=== PATIENT | female | born 1960 | race Caucasian/White ===

== ENCOUNTER → 2020-10-30 12:13 | Outpatient (CLI) | payer BC, SELFPAY ==
--- NOTE | 2020-10-30 12:50 | RAD_ITS ---
STUDY: X-RAY CHEST REASON FOR EXAM: Female, 60 years old. Left upper post crackles, fatigue TECHNIQUE: PA and lateral views of the chest. COMPARISON: None. FINDINGS: Patchy infiltrate in the right upper lobe with volume loss of the right upper lobe. There is enlargement of the right hilar region. A right hilar mass with postobstructive pneumonitis should be ruled out. Correlation with a CT scan is recommended. Hyperinflation. Normal size heart. Normal mediastinum and ailyn. There is prominence of the pulmonary hilar arteries without peripheral pulmonary vascular congestion, suggesting pulmonary hypertension. There is atherosclerotic calcification of the aortic arch with tortuosity. There are degenerative changes of the visualized thoracic spine. Normal visualized ribs, clavicles, and shoulders. There is no demonstrated abnormality of the visualized soft tissue structures of the upper abdomen. RAD/Chest PA and Lateral IMPRESSION: Right hilar soft tissue mass with infiltration in the right upper lobe and volume loss of the right upper lobe. Correlation with a CT scan is recommended to rule out a right hilar mass with postobstructive pneumonitis. Electronically Signed: Gabe Resendez MD at 9:55 EDT , Service support ,
[2020-10-30 15:15] LABS: Absolute Lymphocyte Count 1.55 X10^3/uL (0.83-4.51); Absolute Neutrophil Count 3.7 X10^3/uL (2.0-7.7); Basophil# 0.01 X10^3/uL; Basophil% 0.2 % (0-1); Eosinophil# 0.01 X10^3/uL; Eosinophils% 0.2 % (0-5); Hematocrit 44.8 % (37-47); Hemoglobin 15.2 g/dL (12.0-15.0); Lymphocyte # 1.55 X10^3/ul (0.83-4.51); Lymphocyte % 27.9 % (19-41); Mean Corp Hgb Conc 33.9 g/dL (32-36); Mean Corpuscular Hgb 28.9 pg (27.0-32.0); Mean Corpuscular Volume 85.2 fL (81-99); Mean Platelet Vol. 11.9 fl (6.2-12.0); Monocyte# 0.31 X10^3/uL; Monocyte% 5.6 % (0-10); NRBC Flagged by Analyzer 0 % (0-5); Neutrophil # 3.66 X10^3/uL (2.7-7.7); Neutrophil % 65.7 % (47-70); POSITIVE MORPHOLOGY YES; Platelet Count 171 K/mm3 (150-450); RBC Distribution Width CV 12.3 % (11.6-14.6); RBC Distribution Width SD 38.3 fl (35.1-43.9); Red Blood Count 5.26 M/mm3 (4.2-5.4); White Blood Count 5.6 K/mm3 (4.4-11.0)
[2020-10-30 15:18] LABS: Differential Indicated SCAN CRITERIA MET
[2020-10-30 15:36] LABS: AST(SGOT) 34 U/L (15-37); Alanine Aminotransfer ALT/SGPT 39 U/L (13-56); Albumin, Serum 3.7 g/dL (3.2-5.0); Alkaline Phosphatase 88 U/L (45-117); Anion Gap 12 (5-15); BUN 19 mg/dL (7-18); BUN/Creat Ratio 29.1 RATIO (10-20); Calcium,Total 9.6 mg/dL (8.5-10.1); Chloride 107 mmol/L (98-107); Creatinine, Serum 0.65 mg/dL (0.55-1.02); EST Glomerular Filtration Rate 98 mL/min (>60); Est Glom Filt Rate - Afr Amer 118 mL/min (>60); Globulin 3.8 g/dL (2.2-4.2); Glucose 99 mg/dL (74-106); Potassium 3.6 mmol/L (3.5-5.1); Protein, Total 7.5 g/dL (6.4-8.2); Sodium Level 140 mmol/L (136-145)
[2020-10-30 15:58] LABS: Atypical Lymphocyte RARE %; Platelet Estimate ADEQUATE (ADEQ); Red Cell Morphology NORM C+C NORMAL (NORM C&C)
== END ==
PROVIDERS: PCP Internal Medicine; Referring Provider Internal Medicine; Visit Provider Internal Medicine
DX: R06.89 Other abnormalities of breathing (principal)
CPT/HCPCS: 36415; 71046; 80053; 85025

== ENCOUNTER → 2020-11-01 12:30 | Outpatient (CLI) | payer BC, SELFPAY ==
--- NOTE | 2020-11-01 12:35 | CT_ITS ---
STUDY: CT CHEST WITH CONTRAST REASON FOR EXAM: Female, 60 years old. Right hilar fullness and infiltrate in the right upper lobe. RADIATION DOSAGE (If Supplied By Facility): CTDIvol = ( 12.51 ) mGy, DLP = ( 454.83 ) mGycm TECHNIQUE: Transaxial imaging was performed following intravenous administration of IV 100mL Isovue-370. Multiplanar coronal and sagittal images were reformatted. Individualized dose optimization techniques were used for this CT. COMPARISON: Comparison is made with prior chest radiograph dated 10/30/2020. FINDINGS: Consolidation is seen in the posterior segment of the right upper lobe. Patchy infiltration is seen in the lateral aspect of the superior segment of the left lower lobe. Focal infiltrate is seen in the lateral aspect of the left upper lobe. Patchy infiltrate is seen in the posterior aspect of the right lower lobe. Minimal increased markings in the left lung. There is no demonstrated pleural abnormality. Normal heart and pericardium. Normal mediastinum. There is enlargement of the right hilar lymph node measuring 2.2 cm x 1.6 cm. Normal enhanced pulmonary arteries. Normal aorta arch and descending thoracic aorta. There are multi-level degenerative changes of the thoracic spine. There is no demonstrated abnormality of the visualized upper abdomen. CT/Chest WITH Contrast IMPRESSION: Multifocal infiltrates as described worse in the right upper lobe. There is enlargement of the right hilar lymph node. An infectious process should be ruled out. Pneumonitis secondary to Covid should be ruled out as well. Electronically Signed: Gabe Resendez MD at 13:07 EDT , Service support ,
== END ==
PROVIDERS: PCP Internal Medicine; Referring Provider Internal Medicine; Visit Provider Internal Medicine
DX: R06.89 Other abnormalities of breathing (principal); R93.89 Abnormal findings on diagnostic imaging of other specified body structures
CPT/HCPCS: 71260; 87635; Q9967; U0005; U0003

== ENCOUNTER → 2021-02-26 12:01 | Outpatient (CLI) | payer BC, SELFPAY ==
[2021-02-26 15:46] LABS: Free T3 2.5 pg/mL (2.18-3.98); T4 Free Direct 1.12 ng/dL (0.76-1.46); Thyroid Stim Hormone (TSH) 0.39 uIU/mL (0.358-3.74)
== END ==
PROVIDERS: PCP Internal Medicine; Visit Provider Internal Medicine
DX: F41.9 Anxiety disorder, unspecified (principal)
CPT/HCPCS: 36415; 84439; 84443; 84481

== ENCOUNTER → 2021-11-19 | Outpatient (CLI) | payer BC, SELFPAY ==
[2021-11-19 10:26] LABS: Absolute Neutrophil Count 2.9 X10^3/uL (2.0-7.7); Basophil# 0.01 X10^3/uL; Basophil% 0.2 % (0-1); Eosinophil# 0.04 X10^3/uL; Eosinophils% 0.8 % (0-5); Hematocrit 40.6 % (37-47); Hemoglobin 13.6 g/dL (12.0-15.0); Lymphocyte % 36.8 % (19-41); Mean Corp Hgb Conc 33.5 g/dL (32-36); Mean Corpuscular Hgb 29.1 pg (27.0-32.0); Mean Corpuscular Volume 86.9 fL (81-99); Mean Platelet Vol. 10.7 fl (6.2-12.0); Monocyte# 0.34 X10^3/uL; Monocyte% 6.6 % (0-10); NRBC Flagged by Analyzer 0 % (0-5); Neutrophil # 2.86 X10^3/uL (2.7-7.7); Neutrophil % 55.4 % (47-70); Platelet Count 212 K/mm3 (150-450); RBC Distribution Width CV 12.8 % (11.6-14.6); RBC Distribution Width SD 40.6 fl (35.1-43.9); Red Blood Count 4.67 M/mm3 (4.2-5.4); White Blood Count 5.2 K/mm3 (4.4-11.0)
[2021-11-19 11:10] LABS: ALB/GLOB Ratio 1.2 RATIO (0.9-2.4); AST(SGOT) 11 U/L (15-37); Alanine Aminotransfer ALT/SGPT 24 U/L (13-56); Albumin, Serum 3.6 g/dL (3.2-5.0); Alkaline Phosphatase 70 U/L (45-117); Anion Gap 7 (5-15); BUN 15 mg/dL (7-18); Calcium,Total 8.7 mg/dL (8.5-10.1); Chloride 109 mmol/L (98-107); Cholesterol 206 mg/dL (200); Creatinine, Serum 0.75 mg/dL (0.55-1.02); EST Glomerular Filtration Rate 83 mL/min (>60); Est Glom Filt Rate - Afr Amer 101 mL/min (>60); Globulin 3.1 g/dL (2.2-4.2); Glucose 101 mg/dL (74-106); High Density Lipoprotein 58 mg/dL; Potassium 3.8 mmol/L (3.5-5.1); Protein, Total 6.7 g/dL (6.4-8.2); Sodium Level 142 mmol/L (136-145); Thyroid Stim Hormone (TSH) 1.07 uIU/mL (0.358-3.74); Triglycerides 119 mg/dL; Very Low Density Lipoprotein 24 mg/dL (5-40)
[2021-11-19 11:33] LABS: Vitamin D,25 Hydroxy 23.7 ng/mL
== END | disposition home or self-care (01) ==
PROVIDERS: PCP Internal Medicine; Referring Provider Internal Medicine; Visit Provider Internal Medicine
DX: F41.9 Anxiety disorder, unspecified (principal); E78.00 Pure hypercholesterolemia, unspecified
CPT/HCPCS: 36415; 80053; 80061; 82306; 84443; 85025

== ENCOUNTER → 2022-03-13 | Outpatient (CLI) | payer BC, SELFPAY ==
--- NOTE | 2022-03-13 07:21 | MRI_ITS ---
STUDY: MRI LEFT KNEE REASON FOR EXAM: Female, 62 years old. OSTEOARTHRITIS, ANTERIOR PAIN UNDER PATELLA TECHNIQUE: Standardized fat and water weighted pulse sequences were obtained in all 3 orthogonal planes. COMPARISON: None. FINDINGS: There is medial meniscus tear of the posterior horn with delamination, series 7 image 10/30. There is diffuse, greater than 50% thickness articular cartilage loss of the medial femorotibial compartment. There is mild osteoarthritic spur formation of the medial knee compartment. There is reactive marrow edema and cysts of the medial tibial plateau. Normal medial collateral ligamentous complex (MCL). Normal distal semimembranosus, gracilis and semitendinosus tendons. There is lateral meniscus tear of the posterior horn, series 7 image 12/30. There is diffuse, less than 50% thickness articular cartilage loss of the lateral femorotibial compartment. There is mild osteoarthritic spur formation of the lateral knee compartment. Normal proximal tibiofibular articulation. Normal lateral collateral (fibular) ligament. Normal popliteus tendon. Normal biceps femoris tendon. Normal anterior cruciate ligament (ACL). Normal posterior cruciate ligament (PCL). There is arthrosis of the patellofemoral articulation. There is diffuse, less than 50% thickness articular cartilage loss of the patellofemoral compartment. Normal medial and lateral patellar retinaculum. Normal quadriceps tendon. Normal patellar tendon. Normal Hoffa''s fat pad. There is a small volume joint effusion. The soft tissues are unremarkable. The otherwise visualized osseous structures are unremarkable. MRI/Lower Ext Joint Only (Routine) IMPRESSION: Medial meniscus tear. Lateral meniscus tear. Degenerative change. Stress fracture/injury of the medial tibial plateau. Joint effusion. Electronically Signed: Harley Garcia MD at 9:52 EST ,
== END | disposition home or self-care (01) ==
PROVIDERS: PCP Internal Medicine; Referring Provider Orthopaedic Surgery; Visit Provider Orthopaedic Surgery
DX: M17.12 Unilateral primary osteoarthritis, left knee (principal)
CPT/HCPCS: 73721

== ENCOUNTER → 2022-04-24 | Outpatient (CLI) | payer BC, SELFPAY ==
--- NOTE | 2022-04-24 12:27 | EKG12_ITS ---
Test Reason : PREOP Blood Pressure : / mmHG Vent. Rate : 064 BPM Atrial Rate : 064 BPM P-R Int : 136 ms QRS Dur : 080 ms QT Int : 380 ms P-R-T Axes : 049 069 047 degrees QTc Int : 392 ms Normal sinus rhythm Normal ECG Confirmed by FERNANDA MASTERSON, ZANE ([id number]), editor magazine SHAI HUERTA ([id number]) on 04/27/2022 11:38:02 AM Referred By: SHANIQUA WOODS Confirmed By:ZANE MICHAEL MD
[2022-04-24 13:19] LABS: Hematocrit 42.7 % (37-47); Hemoglobin 14.2 g/dL (12.0-15.0); Mean Corp Hgb Conc 33.3 g/dL (32-36); Mean Corpuscular Hgb 29.9 pg (27.0-32.0); Mean Corpuscular Volume 89.9 fL (81-99); Mean Platelet Vol. 10.6 fl (6.2-12.0); Platelet Count 219 K/mm3 (150-450); RBC Distribution Width CV 12.7 % (11.6-14.6); RBC Distribution Width SD 42.4 fl (35.1-43.9); Red Blood Count 4.75 M/mm3 (4.2-5.4); White Blood Count 7.6 K/mm3 (4.4-11.0)
[2022-04-24 13:41] LABS: Anion Gap 6 (5-15); BUN 22 mg/dL (7-18); BUN/Creat Ratio 28.7 RATIO (10-20); Calcium,Total 9.1 mg/dL (8.5-10.1); Chloride 109 mmol/L (98-107); Creatinine, Serum 0.77 mg/dL (0.55-1.02); EST Glomerular Filtration Rate 81 mL/min (>60); Est Glom Filt Rate - Afr Amer 98 mL/min (>60); Glucose 89 mg/dL (74-106); Potassium 3.8 mmol/L (3.5-5.1); Sodium Level 141 mmol/L (136-145)
== END | disposition home or self-care (01) ==
PROVIDERS: PCP Internal Medicine; Visit Provider Physician Assistant
DX: Z01.818 Encounter for other preprocedural examination (principal)
CPT/HCPCS: 36415; 80048; 85027; 93005

== ENCOUNTER 2024-09-24 05:07 | Emergency (ER) | payer OTHER, SELFPAY ==
[2024-09-24 05:09] VITALS: BP 132/78; PULSE 82; RESP 18; TEMP 37.2; O2SAT 97; BMI 25.4
--- NOTE | 2024-09-24 06:03 | ED.VIS.FEGU ---
HPI HPI - Female History of Present Illness Chief Complaint: Complaint Narrative Narrative: Chief complaint and HPI: Dysuria and suprapubic pressure. 64-year-old female presents for evaluation of dysuria and suprapubic pressure. Onset this morning. Patient states 3 weeks ago she was bit by a possible spider on the back of her left leg. She developed pain and swelling in the leg. She was seen by urgent care. Placed on antibiotics and had a DVT study that was performed which was negative. Patient states she thinks her symptoms today are related to a UTI however she does not know if it is related to the spider bite which is why she presents. She denies any fever, chills, shortness of breath, chest pain, nausea, vomiting. Review of systems: See HPI Medications: As listed on the chart Allergies: As listed on the chart PFSH: Per chart Vital signs: As listed on the chart. Reviewed. Physical exam: Gen: A&O x3, NAD Head: Normocephalic, atraumatic Eyes: No sclera icterus, conjunctiva clear ENT: Moist mucous membranes Neck: Trachea midline, No JVD CV: RRR, no murmurs, no peripheral edema Resp: Lungs CTA BL, no w/r/c GI: Abd soft, non-distended, non-tender, no r/r/g : No CVA tenderness Musc: Full ROM, no deformity, femoral/DP/PT pulses +2 bilaterally, left lower extremity is without swelling or rash, no spider bite or rash present, compartments soft Skin: Warm, dry Neuro: Alert, oriented, grossly intact, sensation intact Psych: Cooperative, appropriate mood and affect PFS PFS Medical History Elevated low density lipoprotein (LDL) cholesterol level Home Medications ?Medication ?Instructions ?Recorded ?Last Taken ?Type acyclovir 5 % topical ointment 1 applic topical .twice daily 5 02/18/23 Unknown Rx days #15 grams escitalopram oxalate 10 mg tablet 10 mg PO DAILY #90 tabs 03/24/24 Unknown Rx Allergy/AdvReac Type Severity Reaction Status Date / Time No Known Allergies Allergy Verified 09/24/24 05:09 Family History Father Cancer Hypertension Mother Hypertension Social History Smoking Status: Never smoker alcohol intake: current alcohol intake frequency: holidays/special occasions only substance use type: does not use what type of physical activity do you participate in: walking and aerobics frequency: daily EXAM Physical Exam Const Vital Signs: 09/24/24 05:09 09/24/24 07:08 Temperature 98.9 F 98.4 F Temperature Source Oral Oral Pulse Rate 82 65 Respiratory Rate 18 15 Blood Pressure 132/78 H 135/79 H Blood Pressure Mean 96 97 Pulse Ox 97 97 Oxygen Delivery Method Room Air Room Air MDM MDM MDM Narrative Medical decision making narrative: 64-year-old female presents for evaluation of dysuria and suprapubic pressure. Onset this morning. Patient states 3 weeks ago she was bit by a possible spider on the back of her left leg. Was seen in urgent care. Had a duplex ultrasound that was negative for DVT but there was concern for infection so she was placed on antibiotics. Symptoms have since resolved. Patient was concerned that her symptoms today may be related to the spider bite. Given that patient's previous spider bite symptoms have improved/resolved, I do not think the 2 are related. Her vitals are stable. Physical exam is unremarkable. Concern is for UTI. UA ordered. UA negative for UTI however positive for blood. Patient's pain may be secondary to urolithiasis. Will add on basic labs and CT abdomen pelvis without contrast. She confirmed understanding of the plan. CBC unremarkable. BMP without RUSS. CT abdomen pelvis without any acute intra-abdominal process. At this point in time, no clear etiology for patient's symptoms. She needs to follow-up with her primary care physician. She is updated all the results and confirmed understand the plan. Patient stable to discharge home. Return precautions explained. Impression: 1. Abdominal pain 2. Dysuria Lab Data Labs: Laboratory Results - last 24 hr 09/24/24 09/24/24 05:29 06:09 WBC 8.2 RBC 4.79 Hgb 14.1 Hct 42.3 MCV 88.3 MCH 29.4 MCHC 33.3 RDW Std Deviation 41.3 RDW Coeff of Sanjiv 12.8 Plt Count 300 MPV 10.3 Immature Gran % (Auto) 0.100 Neut % (Auto) 73.7 H Lymph % (Auto) 19.7 [place] % (Auto) 5.6 Eos % (Auto) 0.7 Baso % (Auto) 0.2 Absolute Neuts (auto) 6.0 Absolute Lymphs (auto) 1.62 Nucleated RBC % 0 Urine Color Yellow Urine Clarity Clear Urine pH 6.5 Ur Specific [place] 1.015 Urine Protein 30 H Urine Glucose (UA) Normal Urine Ketones Negative Urine Occult Blood 10 H Urine Nitrite Negative Urine Bilirubin Negative Urine Urobilinogen 1 H Ur Leukocyte Esterase Negative Urine RBC 0 SEEN Urine WBC 0 SEEN Ur Squamous Epith Cells 0-5 SEEN Urine Bacteria 0 SEEN Urine Mucus 0 SEEN Radiography Diagnostic Testing: Clinical Impression(s) from Imaging Studies Abdomen/Pelvis CT 09/24/24 06:37 IMPRESSION: No acute abdominopelvic finding. Reading Location: [facility] Discharge Plan Triage Chief Complaint: Complaint ED Provider: Alphonse Lowry Dx/Rx/DC Orders Prescriptions: No Action acyclovir 5 % ointment 1 applic topical .twice daily 5 Days Qty: 15 2RF escitalopram oxalate 10 mg tablet 10 mg PO DAILY Qty: 90 3RF Primary Care Provider: Celeste Nunez Referrals: Celeste Nunez MD [Primary Care Provider] - Print Language: [place]i
--- OUTSIDE RECORDS SUMMARY | 2024-09-24 06:06 | XMS RPT_ITS | CCD ---
Author Organization [facility] Care Team Providers Care Soil Science Technical Officer Name Role Phone Dr. Sb Ann Primary Care Provider Dr. Sb Ann Attending Provider [phone] Dr. Sb Ann Referring Provider [phone] Unavailable Primary Care Provider UnavailDr. Sb Kincaid Primary Care Provider Dr. Inderjit Jean Attending Provider 1([facility]) ROYA Bradshaw Referring Provider [phone] Sb Ann Referring Unavailable Sb Ann Primary Care Unavailable Sb Ann Attending Unavailable Sb Ann Primary Care Unavailable Justin Bradshaw Attending Unavailable Dr. Emily Dale Attending Unavailable Dr. Emily Dale Referring Unavailable Sb Ann Primary Care Unavailable Sb Ann Primary Care Unavailable Sb Ann Attending Unavailable Sb Ann Referring Unavailable Sb Ann Primary Care Unavailable Inderjit Jean Attending Unavailable Justin Bradshaw Referring Unavailable Sb Ann MD Primary Care Provider [phone] Sb Ann MD Primary Care Provider [phone] SB ANN Primary Care Unavailable EMILY LIMA Attending Unavailable Medications Current Medications Medication Drug Class(es) Dates Sig (Normalized) Sig (Original) acyclovir 0.05 mg/mg topical ointment (4 sources) Herpesvirus Nucleoside Analog DNA Polymerase Inhibitor, Herpes Simplex Virus Nucleoside Analog DNA Polymerase Inhibitor, Herpes Zoster Virus Nucleoside Analog DNA Polymerase Inhibitor Start: 11-26-2021 Acyclovir Active 1 APPLIC TOPICAL .twice daily 15 November 25, 2021 11:00pm Start: 11-26-2021 End: 11-26-2021 Acyclovir Discontinued 1 MARINA LIC TOPICAL .twice daily 07 17November 25, 2021 11:00pm November 26, 2021 11:52am escitalopram 10 mg oral tablet (16 sources) Serotonin Reuptake Inhibitor Start: 02-26-2021 End: 02-27-2022 take 1 tablet by mouth once daily escitalopram oxalate (LEXAPRO) 10 mg tablet Take 10 mg by mouth once daily. 02/27/2022 Active Comment on above: Take 10 mg by mouth once daily. methylPREDNISolone (2 sources) Corticosteroid Start: 09-19-2024 End: 09-25-2024 methylPREDNISolone (MEDROL, RODDY,) 4 mg Dose-Pack Indications: Rash , Pain of left lower extremity Take as instructed per package. 21 tablet 09/19/2024 09/25/2024 Active ofloxacin 3 mg/ml otic solution (1 source) Quinolone Antimicrobial Start: 10-26-2022 End: 11-02-2022 ofloxacin (FLOXIN) 0.3 % otic solution Use 10 Drops in the right ear once daily for 7 days. 4 mL 0 10/26/2022 11/02/2022 Active Comment on above: Use 10 Drops in the right ear once daily for 7 days. sulfamethoxazole 800 mg / trimethoprim 160 mg oral tablet (2 sources) Dihydrofolate Reductase Inhibitor Antibacterial, Sulfonamide Antimicrobial Start: 09-19-2024 End: 09-26-2024 take 1 tablet by mouth twice daily sulfamethoxazole-trim ethoprim (BACTRIM DS) 800-160 mg per tablet Indications: Cellulitis of skin Take 1 tablet by mouth two times a day for 7 days. 14 tablet 09/19/2024 09/26/2024 Active Completed/Discontinued Medications Medication Drug Class(es) Dates Sig (Normalized) Sig (Original) cephalexin 500 mg oral capsule (2 sources) Cephalosporin Antibacterial Start: 10-30-2020 End: 11-25-2020 Cephalexin Discontinued EACH PO October 29, 2020 11:00pm November 25, 2020 7:10am levoFLOXacin 500 mg oral tablet (2 sources) Quinolone Antimicrobial Start: 11-01-2020 End: 11-25-2020 take 500 mg by mouth once daily Levofloxacin Discontinued 500 MG PO DAILY 7 October 31, 2020 11:00pm November 25, 2020 7:10am phenazopyridine hydrochloride 200 mg oral tablet (2 sources) Start: 10-30-2020 End: 11-25-2020 Phenazopyridine Discontinued EACH PO October 29, 2020 11:00pm November 25, 2020 7:11am Problems Problem Classification Problem Date Documented Date Episodic/Chronic Anxiety disorders (5 sources) Anxiety; Translations: [Anxiety disorder, unspecified] Onset: 11-24-2021 02-26-2021 Chronic Disorders of lipid metabolism (2 sources) Raised low density lipoprotein cholesterol; Translations: [Pure hypercholesterolemia , unspecified] 07-10-2020 Chronic Osteoarthritis (1 source) Unilateral primary osteoarthritis, left knee; Translations: [Unilateral primary osteoarthritis, left knee] Onset: 06-10-2022 Chronic Other connective tissue disease (4 sources) Pain in left lower limb; Translations: [Pain in left leg] 09-19-2024 Episodic Other connective tissue disease (1 source) Pain in left leg; Translations: [Pain of left lower extremity] Onset: 09-19-2024 Episodic Other ear and sense organ disorders (1 source) Acute otitis externa of left ear; Translations: [Unspecified acute noninfective otitis externa, left ear] 10-26-2022 Episodic Other lower respiratory disease (2 sources) Abnormal breath sounds; Translations: [Other abnormalities of breathing] 10-30-2020 Episodic Other screening for suspected conditions (not mental disorders or infectious disease) (2 sources) Imaging of thorax abnormal; Translations: [Abnormal findings on diagnostic imaging of other specified body structures] 10-31-2020 Chronic Other screening for suspected conditions (not mental disorders or infectious disease) (3 sources) Patient encounter status; Translations: [Encounter for screening mammogram for malignant neoplasm of breast] Episodic Other skin disorders (6 sources) Eruption; Translations: [Rash and other nonspecific skin eruption] 11-26-2021 Episodic Other skin disorders (3 sources) Rash and other nonspecific skin eruption; Translations: [Rash and other nonspecific skin eruption] Onset: 01-09-2022 Episodic Skin and subcutaneous tissue infections (2 sources) Cellulitis of skin; Translations: [Cellulitis, unspecified] Onset: 09-19-2024 09-19-2024 Episodic Results Test Name Value Interpretation Reference Range Facility [facility] Lower [facility] 09-21-2024 IMPRESSION: Negative study for proximal DVT in the left lower extremity. Negative study for calf DVT in the left lower extremity. Negative study for superficial thrombophlebitis in the imaged segments of the left lower extremity. Enrolled Agent: JOHANNA Transcribe Date/Time: Sep 21 2024 8:13A Dictated by : TOMMIE CLARK MD This examination was interpreted and the report reviewed and electronically signed by: TOMMIE CLARK MD on Sep 21 2024 8:14AM EST [facility] * * *Final Report* * * DATE OF EXAM: Sep 21 2024 7:46AM LDU 1006 - US DVT LOWER LT / PROCEDURE REASON: multiple diagnoses * * * * Physician Interpretation * * * * EXAMINATION: LEFT LOWER EXTREMITY DEEP VENOUS ULTRASOUND WITH DOPPLER IMAGING CLINICAL HISTORY: Swelling and rash; evaluate for DVT TECHNIQUE: Grayscale with compression maneuvers, color Doppler and spectral Doppler imaging of the left proximal deep veins was performed. Grayscale with compression maneuvers of the peroneal and posterior tibial veins was performed. The left great and small saphenous veins were evaluated at their insertion to the deep system. The contralateral common femoral vein was imaged for comparison. Images were obtained and stored in a permanent archive. MQ: USLEL_1 COMPARISON: None RESULT: LEFT LOWER EXTREMITY PROXIMAL DEEP VEINS Distal External Iliac, Common Femoral and proximal Profunda Veins: Compression: Normal Doppler: Normal, spontaneous respirophasic flow. Normal response to augmentation. Femoral vein: Compression: Normal Doppler: Normal, spontaneous flow. Normal response to augmentation. Popliteal vein: Compression: Normal Doppler: Normal, spontaneous flow. Normal response to augmentation. CALF DEEP VEINS Peroneal veins: Normal compression. Posterior tibial veins: Normal compression. Gastrocnemius and Soleal veins: Not imaged. SUPERFICIAL VEINS Great saphenous: Patent and compressible at insertion into common femoral vein; not otherwise assessed. Small Saphenous: Patent and compressible in the proximal calf, not otherwise assessed. RIGHT LOWER EXTREMITY (FOR COMPARISON) Common Femoral Vein: Compression: Normal Doppler: Normal, spontaneous respirophasic flow. Normal response to augmentation. [employer] [facility] Provider, Danitza eKn - 09/21/2024 * * *Final Report* * * DATE OF EXAM: Sep 21 2024 7:46AM LDU 1006 - US DVT LOWER LT / PROCEDURE REASON: multiple diagnoses * * * * Physician Interpretation * * * * EXAMINATION: LEFT LOWER EXTREMITY DEEP VENOUS ULTRASOUND WITH DOPPLER IMAGING CLINICAL HISTORY: Swelling and rash; evaluate for DVT TECHNIQUE: Grayscale with compression maneuvers, color Doppler and spectral Doppler imaging of the left proximal deep veins was performed. Grayscale with compression maneuvers of the peroneal and posterior tibial veins was performed. The left great and small saphenous veins were evaluated at their insertion to the deep system. The contralateral common femoral vein was imaged for comparison. Images were obtained and stored in a permanent archive. MQ: USLEL_1 COMPARISON: None RESULT: LEFT LOWER EXTREMITY PROXIMAL DEEP VEINS Distal External Iliac, Common Femoral and proximal Profunda Veins: Compression: Normal Doppler: Normal, spontaneous respirophasic flow. Normal response to augmentation. Femoral vein: Compression: Normal Doppler: Normal, spontaneous flow. Normal response to augmentation. Popliteal vein: Compression: Normal Doppler: Normal, spontaneous flow. Normal response to augmentation. CALF DEEP VEINS Peroneal veins: Normal compression. Posterior tibial veins: Normal compression. Gastrocnemius and Soleal veins: Not imaged. SUPERFICIAL VEINS Great saphenous: Patent and compressible at insertion into common femoral vein; not otherwise assessed. Small Saphenous: Patent and compressible in the proximal calf, not otherwise assessed. RIGHT LOWER EXTREMITY (FOR COMPARISON) Common Femoral Vein: Compression: Normal Doppler: Normal, spontaneous respirophasic flow. Normal response to augmentation. IMPRESSION IMPRESSION: Negative study for proximal DVT in the left lower extremity. Negative study for calf DVT in the left lower extremity. Negative study for superficial thrombophlebitis in the imaged segments of the left lower extremity. Enrolled Agent: PSCB Transcribe Date/Time: Sep 21 2024 8:13A Dictated by : TOMMIE CLARK MD This examination was interpreted and the report reviewed and electronically signed by: TOMMIE CLARK MD on Sep 21 2024 8:14AM EST [facility] Radiology Study observation (narrative) [facility] US Lower extremity vein - le ftOrdered By: Ccf Provider on 09-21-2024 [facility] CNOVon 09-19-2024 CNOV Office Visit ([facility]) JENNY CHAVARRIA ([id number]) 1960 F Date Time Provider Department 09/19/24 5:30 PM EMILY LIMA During your visit today, we recorded the following information about you: Temperature Pulse Respiration Blood pressure 98.5 degrees 74/minute 16/minute 122/72 Weight 86 kg Emily Lima MD 09/19/2024 5:49 PM Signed [facility] Subjective Jenny Chavarria is a 64 year old female. Patient presents with: Rash: bug bite on left leg x 2.5-3 weeks Pt is here with 3 week hx of left leg pain and rash and itching at times no injury started with feeling of a bug bite while driving the car then noticed a red rash that has spread no warmth but feels pain in the area and has spread to whole leg no calf swelling no hx of Dvt no dyspnea no recent travle no recent surgeries Rash Pertinent negatives include no fatigue or fever. Review of Systems Constitutional: Negative for chills, fatigue and fever. Musculoskeletal: Positive for arthralgias, joint swelling and myalgias. Skin: Positive for rash. Neurological: Negative for weakness and numbness. Objective BP 122/72 Pulse 74 Temp 36.9 ?C (98.5 ?F) Resp 16 Wt 86 kg (189 lb 9.5 oz) LMP 11/29/2009 SpO2 99% BMI 27.80 kg/m? Physical Exam Vitals and nursing note reviewed. Constitutional: Appearance: Normal appearance. She is not ill-appearing. Musculoskeletal: General: No deformity. Normal range of motion. Right lower leg: No edema. Left lower leg: No edema. Skin: Findings: Erythema and rash present. No bruising. Comments: Extensive patchy red area around left upper thigh and posterior area no warmth no masses or abscess palpable no calf tenderness no cords palpated Neurological: Mental Status: She is alert. Sensory: No sensory deficit. Motor: No weakness. Coordination: Coordination normal. Deep Tendon Reflexes: Reflexes normal. Psychiatric: Mood and Affect: Mood normal. Behavior: Behavior normal. {ASSESSMENT/PLAN: 1. Cellulitis of skin - ICD9: 682.9, ICD10: L03.90 (primary diagnosis) - SULFAMETHOXAZOLE 800 MG-TRIMETHOPRIM 160 MG TABLET 2. Rash - ICD9: 782.1, ICD10: R21 - US DVT LOWER LEFT - METHYLPREDNISOLONE 4 MG TABLETS IN A DOSE PACK 3. Pain of left lower extremity - ICD9: 729.5, ICD10: M79.605 Will treat for possible infection but will check an us for visualization of area of concern - US DVT LOWER LEFT - METHYLPREDNISOLONE 4 MG TABLETS IN A DOSE PACK Emily Lima MD History and Record Review Clinical information obtained from an independent historian. History obtained from or confirmed by: spouse. Systemic symptoms present included: Arthralgias and myalgias Differential Diagnoses - cellulitis is more likely for the following reason(s): suggested by HANDP - DVT is less likely for the following reason(s): await US tomorrow, HANDP not suggestive Disposition The patient was discharged. Procedures Emily Lima MD 09/19/2024 5:42 PM Signed START THE MEDS AND GET THE ULTRASOUND TOMORROW WE WILL NOTIFY OF RESULTS IF ANY WORSE GO TO THE ED Allergies As of Date: 09/19/2024 (No Known Allergies) Date Reviewed: 09/19/2024 Reviewed by: Juliet Mcdonald MA - Fully Assessed Reason for Visit: Rash [1087] Cmt: bug bite on left leg x 2.5-3 weeks Primary Visit Diagnosis:Cellulitis of skin [L03.90] Other Visit Diagnoses:Rash [R21] Pain of left lower extremity [M79.605] Order(s):US DVT LOWER LEFT [5896332] Order #: [id number] FUTURE sulfamethoxazole-trime thoprim (BACTRIM DS) 800-160 mg per tabletTake 1 tablet by mouth two times a day for 7 days.Disp: 14 tabletRfl: 0 methylPREDNISolone (MEDROL, RODDY,) 4 mg Dose-PackTake as instructed per package.Disp: 21 tabletRfl: 0 Prescriptions as of 09/19/2024 - sulfamethoxazole-trime thoprim (BACTRIM DS) 800-160 mg per tablet Take 1 tablet by mouth two times a day for 7 days. - methylPREDNISolone (MEDROL, RODDY,) 4 mg Dose-Pack Take as instructed per package. - escitalopram oxalate (LEXAPRO) 10 mg tablet Take 10 mg by mouth once daily. Meds Comments as of 08/14/2008: No current medications/reviewed August 14, 2008/Glendy Castellano Lpn Problem List As Of Date: 09/19/2024 (None) Other instructions from your clinician: START THE MEDS AND GET THE ULTRASOUND TOMORROW WE WILL NOTIFY OF RESULTS IF ANY WORSE GO TO THE ED Prescriptions ordered this encounter Disp Refills Start End SULFAMETHOXAZOLE 800 MG-TRIMETHOPRIM* 14 t* 0 09/19/2024 09/26/2024 Route: PO Sig: Take 1 tablet by mouth two times a day for 7 days. METHYLPREDNISOLONE 4 MG TABLETS IN A* 21 t* 0 09/19/2024 09/25/2024 Sig: Take as instructed per package. Level of Service: OFFICE/OUTPATIENT NEW MODERATE MDM 45 MINUTES [03035] Encounter Status:Closed by EMILY LIMA on 09/19/24 Normal [facility] MG Breast Screeningon 2023 [facility] 12 Lead EKGon 04-24-2022 12 Lead EKG [facility] Cardiovascular Services [address] [place] [id number] 12 Lead EKG 04/24/22 1233 MR#: [id number] Acct: [id number] Name: JENNY CHAVARRIA Rep #: [id number] : 1960 62 From: Inderjit Jean MD Attending Dr: Justin Kelyl PA-C Status: REG CL I Ordering Dr: Justin Kelly PA-C Date: 04/24/22 Location: [facility] Sex: F C Admitted: Test Reason : PREOP Blood Pressure : / mmHG Vent. Rate : 064 BPM Atrial Rate : 064 BPM P-R Int : 136 ms QRS Dur : 080 ms QT Int : 380 ms P-R-T Axes : 049 069 047 degrees QTc Int : 392 ms Normal sinus rhythm Normal ECG Confirmed by INDERJIT JEAN MD ([id number]), continuity editor SHAI HUERTA ([id number]) on 04/27/2022 11:38:02 AM Referred By: SHANIQUA KELLY Confirmed By:INDERJIT JEAN MD 04/27/22 1138 Date Inderjit Jean MD CC: ROYA Kelly; Dr. Sb Ann MD Signed Normal [facility] Basic Metabolic Profile (BMP )on 04-24-2022 BUN/CRE 28.7 RATIO High 10-20 [facility] Comment on above: Performed By: #### L 100.0500, L500.2500 #### [facility] [address] [place], [address] CA,Total 9.1 mg/dL Normal 8.5-10.1 [facility] Comment on above: Performed By: #### L 100.0500, L500.2500 #### [facility] [address] [place], [address] Chloride [Moles/Vol] 109 mmol/L High 98-107 [facility] Comment on above: Performed By: #### L 100.0500, L500.2500 #### [facility] [address] [place], [address] CO2 [Moles/Vol] 26.0 mmol/L Normal 21.0-32.0 [facility] Comment on above: Performed By: #### L 100.0500, L500.2500 #### [facility] [address] [place], [address] Creatinine [Mass/Vol] 0.77 mg/dL Normal 0.55-1.02 [facility] Comment on above: Result Comment: The validity of the calculated GFR GFRAA in patients over 70 years has not been determined. Clinical correlation is essential. Performed By: #### L 100.0500, L500.2500 #### [facility] [address] [place], [address] EST GFR - AA 98 mL/min Normal >60 [facility] Comment on above: Result Comment: Afri can Venezuelan GFR Calc Performed By: #### L 100.0500, L500.2500 #### [facility] [address] [place], [address] GAP 6 Normal 5-15 [facility] Comment on above: Performed By: #### L 100.0500, L500.2500 #### [facility] [address] [place], [address] GFR/1.73 sq M.predicted among non-blacks MDRD (S/P/Bld) [Vol rate/Area] 81 mL/min/{1.73_m2} Normal >60 [facility] Comment on above: Result Comment: Non- GFR Calc Performed By: #### L 100.0500, L500.2500 #### [facility] [address] [place], [address] Glucose [Mass/Vol] 89 mg/dL Normal 74-106 [facility] Comment on above: Performed By: #### L 100.0500, L500.2500 #### [facility] [address] [place], [address] Potassium [Moles/Vol] 3.8 mmol/L Normal 3.5-5.1 [facility] Comment on above: Performed By: #### L 100.0500, L500.2500 #### [facility] [address] [place], [address] Sodium [Moles/Vol] 141 mmol/L Normal 136-145 [facility] Comment on above: Performed By: #### L 100.0500, L500.2500 #### [facility] [address] [place], [address] Urea nitrogen [Mass/Vol] 22 mg/dL High 7-18 [facility] Comment on above: Performed By: #### L 100.0500, L500.2500 #### [facility] [address] [place], [address] Basophil percentageOrdered B y: Justin Kelly on 04-24-2022 Chloride [Moles/Vol] 109 mmol/L 98-107 [facility] Glucose [Mass/Vol] 89 mg/dL 74-106 [facility] Potassium [Moles/Vol] 3.8 mmol/L 3.5-5.1 [facility] Sodium [Moles/Vol] 141 mmol/L 136-145 [facility] WBC (Bld) [#/Vol] 7.6 10*3/uL 4.4-11.0 [facility] Blood erythrocytes count (nu mber/volume)Ordered By: Justin Kelly on 04-24-2022 RBC (Bld) [#/Vol] 4.75 10*6/uL 4.2-5.4 [facility] Blood hemoglobin measurement (mass/volume)Ordered By: Justin Kelly on 04-24-2022 Hemoglobin (Bld) [Mass/Vol] 14.2 g/dL 12.0-15.0 [facility] Blood platelet mean volumeOr dered By: Justin Kelly on 04-24-2022 Platelet mean volume (Bld) [Entitic vol] 10.6 fL 6.2-12.0 [facility] CBC-Complete Blood Cnt No Di ffon 04-24-2022 Erythrocyte distribution width (RBC) [Ratio] 12.7 % Normal 11.6-14.6 [facility] Comment on above: Performed By: #### L 100.0500, L500.2500 #### [facility] [address] [place], [address] Hematocrit (Bld) [Volume fraction] 42.7 % Normal 37-47 [facility] Comment on above: Performed By: #### L 100.0500, L500.2500 #### [facility] [address] [place], [address] Hemoglobin (Bld) [Mass/Vol] 14.2 g/dL Normal 12.0-15.0 [facility] Comment on above: Performed By: #### L 100.0500, L500.2500 #### [facility] [address] [place], [address] MCH (RBC) [Entitic mass] 29.9 pg Normal 27.0-32.0 [facility] Comment on above: Performed By: #### L 100.0500, L500.2500 #### [facility] [address] [place], [address] MCHC (RBC) [Mass/Vol] 33.3 g/dL Normal 32-36 [facility] Comment on above: Performed By: #### L 100.0500, L500.2500 #### [facility] [address] [place], [address] MCV (RBC) [Entitic vol] 89.9 fL Normal 81-99 [facility] Comment on above: Performed By: #### L 100.0500, L500.2500 #### [facility] [address] [place], [address] Platelet mean volume (Bld) [Entitic vol] 10.6 fL Normal 6.2-12.0 [facility] Comment on above: Performed By: #### L 100.0500, L500.2500 #### [facility] [address] [place], [address] Platelets (Bld) [#/Vol] 219 10*3/uL Normal 150-450 [facility] Comment on above: Performed By: #### L 100.0500, L500.2500 #### [facility] [address] [place], [address] RBC (Bld) [#/Vol] 4.75 10*6/uL Normal 4.2-5.4 [facility] Comment on above: Performed By: #### L 100.0500, L500.2500 #### [facility] [address] [place], [address] RDW SD 42.4 fl Normal 35.1-43.9 [facility] Comment on above: Performed By: #### L 100.0500, L500.2500 #### [facility] [address] [place], [address] WBC (Bld) [#/Vol] 7.6 10*3/uL Normal 4.4-11.0 [facility] Comment on above: Performed By: #### L 100.0500, L500.2500 #### [facility] [address] [place], [address] Determination of erythrocyte mean corpuscular volume (MCV)Ordered By: Justin Kelly on 04-24-2022 MCV (RBC) [Entitic vol] 89.9 fL 81-99 [facility] Hematocrit Auto (Bld) [Volum e fraction]Ordered By: Justin Kelly on 04-24-2022 Hematocrit (Bld) [Volume fraction] 42.7 % 37-47 [facility] - Chemistry and C hemistry - challengeOrdered By: Justin Kelly on 04-24-2022 CO2 [Moles/Vol] 26.0 mmol/L 21.0-32.0 [facility] Urea nitrogen/Creatinine [Mass ratio] 28.7 mg/mg 10-20 [facility] - Hematology and Cell countsOrdered By: Justin Kelly on 04-24-2022 Erythrocyte distribution width (RBC) [Entitic vol] 42.4 fL 35.1-43.9 [facility] Erythrocyte distribution width (RBC) [Ratio] 12.7 % 11.6-14.6 [facility] MCH (RBC) [Entitic mass] 29.9 pg 27.0-32.0 [facility] MCHC Auto (RBC) [Mass/Vol]Or dered By: Justin Kelly on 04-24-2022 MCHC (RBC) [Mass/Vol] 33.3 g/dL 32-36 [facility] No Panel InformationOrdered By: Justin Kelly on 04-24-2022 Estimated GFR (MDRD) Amer 98 mL/min >60 [facility] Comment on above: GFR Calc Estimated GFR (MDRD) Non-Af Amer 81 mL/min >60 [facility] Comment on above: Non- GFR Calc Platelets bldOrdered By: Bartolome Kelly on 04-24-2022 Platelets (Bld) [#/Vol] 219 10*3/uL 150-450 [facility] Serum or plasma calcium michael urement (mass/volume)Ordered By: Justin Kelly on 04-24-2022 Calcium [Mass/Vol] 9.1 mg/dL 8.5-10.1 [facility] Serum or plasma creatinine m easurement (mass/volume)Ordered By: Justin Kelly on 04-24-2022 Creatinine [Mass/Vol] 0.77 mg/dL 0.55-1.02 [facility] Comment on above: The validity of the calculated GFR & GFRAA in patients over 70 years has not been determined. Clinical correlation is essential. Serum or plasma urea nitroge n measurement (mass/volume)Ordered By: Justin Kelly on 04-24-2022 Urea nitrogen [Mass/Vol] 22 mg/dL 7-18 [facility] Thin prep Papanicolaou smear with manual screeningOrdered By: Justin Kelly on 04-24-2022 Thin prep Papanicolaou smear with manual screening 6 5-15 [facility] AFSHAN SCREENINGon 04-08-2022 [facility] Lower Ext Joint Only (Routin e)on 03-13-2022 Lower Ext Joint Only (Routine) [facility] [facility] Imaging Services [address] [place] [address] Lower Ext Joint Only (Routine) MR#: [id number] Acct: [id number] Name: JENNY CHAVARRIA Rep #: [id number] : 1960 F 62 From: Harley Garcia MD PCP: Dr. Sb Ann MD Status: REG CLI Study: Lower Ext Joint Only (Routine) Date of Exam: Exam# [id number] Ordering Dr: Emily Dale DO STUDY: MRI LEFT KNEE REASON FOR EXAM: Female, 62 years old. OSTEOARTHRITIS, ANTERIOR PAIN UNDER PATELLA TECHNIQUE: Standardized fat and water weighted pulse sequences were obtained in all 3 orthogonal planes. COMPARISON: None. FINDINGS: There is medial meniscus tear of the posterior horn with delamination, series 7 image 01/11. There is diffuse, greater than 50% thickness articular cartilage loss of the medial femorotibial compartment. There is mild osteoarthritic spur formation of the medial knee compartment. There is reactive marrow edema and cysts of the medial tibial plateau. Normal medial collateral ligamentous complex (MCL). Normal distal semimembranosus, gracilis and semitendinosus tendons. There is lateral meniscus tear of the posterior horn, series 7 image 12/. There is diffuse, less than 50% thickness articular cartilage loss of the lateral femorotibial compartment. There is mild osteoarthritic spur formation of the lateral knee compartment. Normal proximal tibiofibular articulation. Normal lateral collateral (fibular) ligament. Normal popliteus tendon. Normal biceps femoris tendon. Normal anterior cruciate ligament (ACL). Normal posterior cruciate ligament (PCL). There is arthrosis of the patellofemoral articulation. There is diffuse, less than 50% thickness articular cartilage loss of the patellofemoral compartment. Normal medial and lateral patellar retinaculum. Normal quadriceps tendon. Normal patellar tendon. Normal Hoffa''s fat pad. There is a small volume joint effusion. The soft tissues are unremarkable. The otherwise visualized osseous structures are unremarkable. MRI/Lower Ext Joint Only (Routine) IMPRESSION: Medial meniscus tear. Lateral meniscus tear. Degenerative change. Stress fracture/injury of the medial tibial plateau. Joint effusion. Electronically Signed: Harley Garcia MD at 9:52 EST , CC: Dr. Sb Ann MD; Dr. Emily Dale DO Enrolled Agent: Signed [facility] Internal Medicine [address] [place] [address] OFFICE VISIT Date of Service: 11/26/21 MR#: [id number] Acct: [id number] Name: JENNY CHAVARRIA Rep #: [id number] : 1960 Provider: Dr. Sb vargas MD Age/Sex: 61/F Location: [facility] Status: Signed Intake Vital Signs 11/26/21 08:04 Weight: 182 lb 6 oz BP 127/77 H Blood Pressure Location Lt brachial Position Sitting Respiration 16 Pulse 70 Pulse Source Monitor Temp 97.4 F L Temp Source Temporal Pulse Oximetry (%) 93 Oxygen Delivery Method room air Intake Visit Reasons: 6-8M F/U Chief Complaint: no acute concerns Child Care Attendant Required: No Is patient in pain?: No Allergies No Known Allergies Allergy (Verified 11/26/21 08:05) Medications escitalopram oxalate 10 mg tablet 10 mg PO DAILY #90 tabs 08/19/21 [Rx Confirmed 11/26/21] acyclovir 5 % topical cream 1 applic topical .twice daily 5 days #5 grams 11/26/21 [Rx Confirmed 11/26/21] PFSH Medical History Elevated low density lipoprotein (LDL) cholesterol level Family History Father Cancer Hypertension Mother Hypertension Social History Smoking Status: Never smoker alcohol intake: current alcohol intake frequency: holidays/special occasions only substance use type: does not use what type of physical activity do you participate in: walking and aerobics frequency: daily HPI HPI Chief Complaint: no acute concerns Details: JENNY CHAVARRIA, is a 61 F who presents to the office today for checkup. Overall patient is doing well. She makes note that she has a outbreak of shingles. She gets this recurrently, has a rash with some tingling, itching burning sensation, that will last about a week, on the left upper arm. She will not get it frequently but it is usually under conditions of stress. These are not the typical shingles type of rash, small little bumps well-developed good or burning, itching in nature. Otherwise has been doing well. She had her labs done and those were reviewed in detail with her in regards to the lipids all were excellent. Likewise blood counts, kidney and liver functions etc. All lab reviewed in detail. Generally speaking otherwise she has been doing quite well. She continues to work. Remaining physically active. Overall eats a very good high-quality diet as we have discussed previously. Review of systems per chart. No fever, chills, nausea or vomiting. No abdominal pains. No change in bowel movements. No chest pain, shortness of breath, wheeze, cough, congestion. No focal neurologic concerns. Physical exam. Vital signs on chart. EOMI. PERRLA. Sclera are clear. TMs are unremarkable with normal light reflexes. Canals are unremarkable. Posterior pharynx is unremarkable. Good dentit ion. No cervical or supraclavicular lymph nodes enlarged or tender. No clear thyromegaly. No thyroid nodules readily palpable. Lungs are without wheeze, rhonchi, rales. No E/A changes are heard. Heart is regular. Not tachycardic. No clear murmur, rub, or gallop is identified. The abdomen is soft. Bowel sounds are present. Nontender nondistended abdomen. No clear palpable masses in the abdomen. No significant leg edema. Cranial nerve examination 2 through 12 are grossly unremarkable nonlateralizing. Deep tendon reflexes are 2/4 and symmetric at the bicep, tricep, Achilles, patella. No ankle clonus. Couple of areas of rash, left lateral upper arm. This is of a recurrent nature for her, typically with stress situations. Not the typical usual shingles outbreak but very likely viral if not shingles in nature as we have discussed. ROS Const Constitutional: No body ache, chills, excessive sweating, fatigue, fever(s), frequent falls, headache(s), snoring, weakness, weight change, sleep problems or change in appetite Eyes Eyes: No blurry vision, change in vision, eye pain or Light sensitivity ENT ENT: No abnormal hearing, ear or mastoid pain, tinnitus, nasal congestion, headache(s), neck pain or sore throat Resp Respiratory: No cough, shortness of breath, snoring or wheezing Cardio Cardiology: No chest pain at rest, chest pain with exertion, excessive sweating, shortness of breath, dyspnea on exertion, lightheadedness, orthopnea or palpitations Gastro GI: No abdominal pain, change in bowel habits, constipation, cramping, diarrhea, Vomiting blood/hematemesis, vomiting or other Genitourinary-Female: No burning urination, painful urination, urinary incontinence, blood in urine or abnormal vaginal bleeding Musc Musculoskeletal: No abnormal gait, joint pain, back pain, limited range of motion, neck pain, numbness or tingling Skin Skin: No dry skin, redness, lesions, itch (more content not included)... Normal [facility] CBC W/Diff, Automatedon 09-0 7-2021 Absolute Lymph 1.90 X10 3/uL Normal 0.83-4.51 [facility] Comment on above: Performed By: #### L 501.9520, L506.1000, L100.0100, L500.4050, L500.4100 #### [facility] [address] [place], [address] Absolute Neut 2.9 X10 3/uL Normal 2.0-7.7 [facility] Comment on above: Performed By: #### L 501.9520, L506.1000, L100.0100, L500.4050, L500.4100 #### [facility] [address] [place], [address] Basophils/100 WBC (Bld) 0.2 % Normal 0-1 [facility] Comment on above: Performed By: #### L 501.9520, L506.1000, L100.0100, L500.4050, L500.4100 #### [facility] [address] [place], [address] Eosinophils/100 WBC (Bld) 0.8 % Normal 0-5 [facility] Comment on above: Performed By: #### L 501.9520, L506.1000, L100.0100, L500.4050, L500.4100 #### [facility] [address] [place], [address] Erythrocyte distribution width (RBC) [Ratio] 12.8 % Normal 11.6-14.6 [facility] Comment on above: Performed By: #### L 501.9520, L506.1000, L100.0100, L500.4050, L500.4100 #### [facility] [address] [place], [address] Hematocrit (Bld) [Volume fraction] 40.6 % Normal 37-47 [facility] Comment on above: Performed By: #### L 501.9520, L506.1000, L100.0100, L500.4050, L500.4100 #### [facility] [address] [place], [address] Hemoglobin (Bld) [Mass/Vol] 13.6 g/dL Normal 12.0-15.0 [facility] Comment on above: Performed By: #### L 501.9520, L506.1000, L100.0100, L500.4050, L500.4100 #### [facility] [address] [place], [address] IG% 0.200 Normal 0.0-0.9 [facility] Comment on above: Result Comment: IG% - Immature Granulocytes (promyelocytes, myelocytes and metamyelocytes) > 1% indicates that a LEFT SHIFT is Present. Performed By: #### L 501.9520, L506.1000, L100.0100, L500.4050, L500.4100 #### [facility] [address] [place], [address] Lymphocytes/100 WBC (Bld) 36.8 % Normal 19-41 [facility] Comment on above: Performed By: #### L 501.9520, L506.1000, L100.0100, L500.4050, L500.4100 #### [facility] [address] [place], [address] MCH (RBC) [Entitic mass] 29.1 pg Normal 27.0-32.0 [facility] Comment on above: Performed By: #### L 501.9520, L506.1000, L100.0100, L500.4050, L500.4100 #### [facility] [address] [place], [address] MCHC (RBC) [Mass/Vol] 33.5 g/dL Normal 32-36 [facility] Comment on above: Performed By: #### L 501.9520, L506.1000, L100.0100, L500.4050, L500.4100 #### [facility] [address] [place], [address] MCV (RBC) [Entitic vol] 86.9 fL Normal 81-99 [facility] Comment on above: Performed By: #### L 501.9520, L506.1000, L100.0100, L500.4050, L500.4100 #### [facility] [address] [place], [address] Monocytes/100 WBC (Bld) 6.6 % Normal 0-10 [facility] Comment on above: Performed By: #### L 501.9520, L506.1000, L100.0100, L500.4050, L500.4100 #### [facility] [address] [place], [address] Neutrophils/100 WBC (Bld) 55.4 % Normal 47-70 [facility] Comment on above: Performed By: #### L 501.9520, L506.1000, L100.0100, L500.4050, L500.4100 #### [facility] [address] [place], [address] Nucleated RBC (Bld) [#/Vol] 0 10*3/uL Normal 0-5 [facility] Comment on above: Performed By: #### L 501.9520, L506.1000, L100.0100, L500.4050, L500.4100 #### [facility] [address] [place], [address] Platelet mean volume (Bld) [Entitic vol] 10.7 fL Normal 6.2-12.0 [facility] Comment on above: Performed By: #### L 501.9520, L506.1000, L100.0100, L500.4050, L500.4100 #### [facility] [address] [place], [address] Platelets (Bld) [#/Vol] 212 10*3/uL Normal 150-450 [facility] Comment on above: Performed By: #### L 501.9520, L506.1000, L100.0100, L500.4050, L500.4100 #### [facility] [address] [place], [address] RBC (Bld) [#/Vol] 4.67 10*6/uL Normal 4.2-5.4 [facility] Comment on above: Performed By: #### L 501.9520, L506.1000, L100.0100, L500.4050, L500.4100 #### [facility] [address] [place], [address] RDW SD 40.6 fl Normal 35.1-43.9 [facility] Comment on above: Performed By: #### L 501.9520, L506.1000, L100.0100, L500.4050, L500.4100 #### [facility] [address] [place], [address] WBC (Bld) [#/Vol] 5.2 10*3/uL Normal 4.4-11.0 [facility] Comment on above: Performed By: #### L 501.9520, L506.1000, L100.0100, L500.4050, L500.4100 #### [facility] [address] [place], [address] Comprehensive Metabolic Prof ilon 11-19-2021 Albumin [Mass/Vol] 3.6 g/dL Normal 3.2-5.0 [facility] Comment on above: Performed By: #### L 501.9520, L506.1000, L100.0100, L500.4050, L500.4100 #### [facility] [address] [place], [address] Albumin/Globulin [Mass ratio] 1.2 {ratio} Normal 0.9-2.4 [facility] Comment on above: Performed By: #### L 501.9520, L506.1000, L100.0100, L500.4050, L500.4100 #### [facility] [address] [place], [address] ALK P 70 U/L Normal 45-117 [facility] Comment on above: Performed By: #### L 501.9520, L506.1000, L100.0100, L500.4050, L500.4100 #### [facility] [address] [place], [address] ALT [Catalytic activity/Vol] 24 U/L Normal 13-56 [facility] Comment on above: Performed By: #### L 501.9520, L506.1000, L100.0100, L500.4050, L500.4100 #### [facility] [address] [place], [address] AST [Catalytic activity/Vol] 11 U/L Low 15-37 [facility] Comment on above: Performed By: #### L 501.9520, L506.1000, L100.0100, L500.4050, L500.4100 #### [facility] [address] [place], [address] Bilirubin [Mass/Vol] 0.60 mg/dL Normal 0.20-1.00 [facility] Comment on above: Result Comment: For patients on eltrombopag therapy, use of Dimension [place] TBIL is not recommended. Performed By: #### L 501.9520, L506.1000, L100.0100, L500.4050, L500.4100 #### [facility] [address] [place], [address] BUN/CRE 20.0 RATIO Normal 10-20 [facility] Comment on above: Performed By: #### L 501.9520, L506.1000, L100.0100, L500.4050, L500.4100 #### [facility] [address] [place], [address] CA,Total 8.7 mg/dL Normal 8.5-10.1 [facility] Comment on above: Performed By: #### L 501.9520, L506.1000, L100.0100, L500.4050, L500.4100 #### [facility] [address] [place], [address] Chloride [Moles/Vol] 109 mmol/L High 98-107 [facility] Comment on above: Performed By: #### L 501.9520, L506.1000, L100.0100, L500.4050, L500.4100 #### [facility] [address] [place], [address] CO2 [Moles/Vol] 26.0 mmol/L Normal 21.0-32.0 [facility] Comment on above: Performed By: #### L 501.9520, L506.1000, L100.0100, L500.4050, L500.4100 #### [facility] [address] [place], [address] Creatinine [Mass/Vol] 0.75 mg/dL Normal 0.55-1.02 [facility] Comment on above: Result Comment: The validity of the calculated GFR GFRAA in patients over 70 years has not been determined. Clinical correlation is essential. Performed By: #### L 501.9520, L506.1000, L100.0100, L500.4050, L500.4100 #### [facility] [address] [place], [address] EST GFR - AA 101 mL/min Normal >60 [facility] Comment on above: Result Comment: Afri can Venezuelan GFR Calc Performed By: #### L 501.9520, L506.1000, L100.0100, L500.4050, L500.4100 #### [facility] [address] [place], [address] GAP 7 Normal 5-15 [facility] Comment on above: Performed By: #### L 501.9520, L506.1000, L100.0100, L500.4050, L500.4100 #### [facility] [address] [place], [address] GFR/1.73 sq M.predicted among non-blacks MDRD (S/P/Bld) [Vol rate/Area] 83 mL/min/{1.73_m2} Normal >60 [facility] Comment on above: Result Comment: Non- GFR Calc Performed By: #### L 501.9520, L506.1000, L100.0100, L500.4050, L500.4100 #### [facility] [address] [place], [address] Globulin (S) [Mass/Vol] 3.1 g/dL Normal 2.2-4.2 [facility] Comment on above: Performed By: #### L 501.9520, L506.1000, L100.0100, L500.4050, L500.4100 #### [facility] [address] [place], [address] Glucose [Mass/Vol] 101 mg/dL Normal 74-106 [facility] Comment on above: Result Comment: Fast ing Glucose result from 100 to 125 mg/dL suggests IMPAIRED HOMEOSTASIS per A.D.A. criteria. Performed By: #### L 501.9520, L506.1000, L100.0100, L500.4050, L500.4100 #### [facility] [address] [place], [address] Potassium [Moles/Vol] 3.8 mmol/L Normal 3.5-5.1 [facility] Comment on above: Performed By: #### L 501.9520, L506.1000, L100.0100, L500.4050, L500.4100 #### [facility] [address] [place], [address] Sodium [Moles/Vol] 142 mmol/L Normal 136-145 [facility] Comment on above: Performed By: #### L 501.9520, L506.1000, L100.0100, L500.4050, L500.4100 #### [facility] [address] [place], [address] T PROT 6.7 g/dL Normal 6.4-8.2 [facility] Comment on above: Performed By: #### L 501.9520, L506.1000, L100.0100, L500.4050, L500.4100 #### [facility] [address] [place], [address] Urea nitrogen [Mass/Vol] 15 mg/dL Normal 7-18 [facility] Comment on above: Performed By: #### L 501.9520, L506.1000, L100.0100, L500.4050, L500.4100 #### [facility] [address] [place], [address] Lipid Profileon 11-19-2021 Cholesterol [Mass/Vol] 206 mg/dL High 200 [facility] Comment on above: Result Comment: <200 mg/dL Desirable 200-240 mg/dL Borderline >240 mg/dL High Risk Performed By: #### L 501.9520, L506.1000, L100.0100, L500.4050, L500.4100 #### [facility] [address] [place], [address] Cholesterol in HDL [Mass/Vol] 58 mg/dL Normal [facility] Comment on above: Result Comment: The drugs N-Acetylcysteine and Metamizole may falsely depress this assay. Reference Range HDL <40 mg/dL Low HDL Cholesterol HDL >or= 60 mg/dL High HDL Cholesterol Performed By: #### L 501.9520, L506.1000, L100.0100, L500.4050, L500.4100 #### [facility] [address] [place], [address] Cholesterol in LDL [Mass/Vol] 124 mg/dL Normal 0-130 [facility] Comment on above: Performed By: #### L 501.9520, L506.1000, L100.0100, L500.4050, L500.4100 #### [facility] [address] [place], [address] Cholesterol in VLDL [Mass/Vol] 24 mg/dL Normal 5-40 [facility] Comment on above: Performed By: #### L 501.9520, L506.1000, L100.0100, L500.4050, L500.4100 #### [facility] [address] [place], [address] Triglyceride [Mass/Vol] 119 mg/dL Normal [facility] Comment on above: Result Comment: The drugs N-Acetylcysteine and Metamizole may falsely depress this assay. Serum Triglycerides Reference Interval Normal <150 mg/dL Borderline high 150 - 199 mg/dL High 200 - 499 mg/dL Very High > or = 500 mg/dL Performed By: #### L 501.9520, L506.1000, L100.0100, L500.4050, L500.4100 #### [facility] [address] [place], [address] Thyroid Stim Hormone (TSH)on 11-19-2021 TSH 1.07 uIU/mL Normal 0.358-3.74 [facility] Comment on above: Performed By: #### L 501.9520, L506.1000, L100.0100, L500.4050, L500.4100 #### [facility] [address] [place], [address] Vitamin D,25 Hydroxyon 11-19 Vitamin D 25-OH 23.7 ng/mL Normal [facility] Comment on above: Result Comment: Tiffanie min D 25(OH) Status Range Deficiency <20 ng/mL (50nmol/L) Insufficiency 20 - 30 ng/mL (50 - 75 nmol/L) Sufficiency 30 - 100 ng/mL (75 - 250 nmol/L) Toxicity >100 ng/mL (>250 nmol/L) Performed By: #### L 501.9520, L506.1000, L100.0100, L500.4050, L500.4100 #### [facility] [address] [place], [address] Vital Signs Date Time Vital Sign Value Performing Clinician Facility 09-19-2024 17:29-0400 Body mass index (BMI) [Ratio] 27.8 kg/m2 Emily Lima MD Work Phone: [facility] 09-19-2024 17:29-0400 Body temperature 98.49 [degF] Emily Lima MD Work Phone: [facility] 09-19-2024 17:29-0400 Body weight 86 kg Emily Lima MD Work Phone: [facility] 09-19-2024 17:29-0400 Diastolic blood pressure 72 mm[Hg] Emily Lima MD Work Phone: [facility] 09-19-2024 17:29-0400 Heart rate 74 /min Emily Lima MD Work Phone: [facility] 09-19-2024 17:29-0400 Respiratory rate 16 /min Emily Lima MD Work Phone: [facility] 09-19-2024 17:29-0400 SaO2% (BldA) [Mass fraction] 99 % Emily Lima MD Work Phone: [facility] 09-19-2024 17:29-0400 Systolic blood pressure 122 mm[Hg] Emily iLma MD Work Phone: [facility] 10-26-2022 07:37-0400 Body temperature 97.9 [degF] [facility] WELLNESS EDUCATOR.SHANK PIECE TACKER Work Phone: [facility] 10-26-2022 07:37-0400 Body weight 87.09 kg [facility] WELLNESS EDUCATOR.SHANK PIECE TACKER Work Phone: [facility] 10-26-2022 07:37-0400 Diastolic blood pressure 70 mm[Hg] Anthony Pendlebury WELLNESS EDUCATOR.SHANK PIECE TACKER Work Phone: [facility] 10-26-2022 07:37-0400 Heart rate 74 /min Anthony Pendlebury WELLNESS EDUCATOR.SHANK PIECE TACKER Work Phone: [facility] 10-26-2022 07:37-0400 Respiratory rate 16 /min [facility] WELLNESS EDUCATOR.SHANK PIECE TACKER Work Phone: [facility] 10-26-2022 07:37-0400 SaO2% (BldA) [Mass fraction] 95 % Anthony Pendlebel WELLNESS EDUCATOR.SHANK PIECE TACKER Work Phone: [facility] 10-26-2022 07:37-0400 Systolic blood pressure 124 mm[Hg] Anthony Pendlebury WELLNESS EDUCATOR.SHANK PIECE TACKER Work Phone: [facility] 03-30-2022 07:02-0500 Body height 175.9 cm Sarah Gardena WELLNESS EDUCATOR.SHANK PIECE TACKER Work Phone: [facility] 03-30-2022 07:02-0500 Body weight 83.83 kg Sarah Gardena WELLNESS EDUCATOR.SHANK PIECE TACKER Work Phone: [facility] 03-30-2022 07:02-0500 Diastolic blood pressure 64 mm[Hg] Sarah Karen WELLNESS EDUCATOR.SHANK PIECE TACKER Work Phone: [facility] 03-30-2022 07:02-0500 Systolic blood pressure 110 mm[Hg] Sarah Karen WELLNESS EDUCATOR.SHANK PIECE TACKER Work Phone: [facility] 11-26-2021 08:04-0400 Body temperature 97.4 [degF] Dr. Sb Ann Work Phone: [facility] Work Phone: 11-26-2021 08:04-0400 Body weight 82.[address] Sb Ann Work Phone: [facility] Work Phone: 11-26-2021 08:04-0400 Diastolic blood pressure 77 mm[Hg] Dr. Sb Ann Work Phone: [facility] Work Phone: 11-26-2021 08:04-0400 Heart rate 70 /min Dr. Sb Ann Work Phone: [facility] Work Phone: 11-26-2021 08:04-0400 Respiratory rate 16 /min Dr. Sb Ann Work Phone: [facility] Work Phone: 11-26-2021 08:04-0400 SaO2% (BldA) [Mass fraction] 93 % Dr. Sb Ann Work Phone: [facility] Work Phone: 11-26-2021 08:04-0400 Systolic blood pressure 127 mm[Hg] Dr. Sb Ann Work Phone: [facility] Work Phone: Encounters Encounter Date Encounter Type Care Provider Facility Start: 09-21-2024 End: 09-21-2024 Subsequent hospital visit by physician [facility] Comment on above: Rash [R21] Start: 09-19-2024 End: 09-19-2024 Office outpatient new 45 minutes Emily Lima MD Work Phone: [facility] Comment on above: Cellulitis of skin ( Primary Dx); Rash; Pain of left lower extremity Start: 09-19-2024 End: 09-19-2024 ambulatory SB ANN Facility:[facility] Start: 04-23-2023 Documentation procedure Mammog abraham Coordinator [facility] Start: 04-23-2023 Letter encounter Mammography Coordinator [facility] Department Start: 04-23-2023 End: 04-23-2023 Subsequent hospital visit by physician Screen Mammo [facility] Comment on above: Encounter for screen ing mammogram for malignant neoplasm of breast [Z12.31] Start: 10-26-2022 End: 10-26-2022 Office outpatient visit 15 minutes Anthony Anderson APRN.CNP Work Phone: [facility] Comment on above: Acute otitis externa of left ear, unspecified type (Primary Dx) Start: 05-04-2022 Encounter for other preprocedural examination Justin PALMER [facility] Start: 04-24-2022 End: 04-24-2022 ambulatory Sb Ann Facility:[facility] Start: 04-24-2022 End: 04-24-2022 Non-patient / Non-visit Dr. Sb Ann Work Phone: [facility] Start: 04-24-2022 End: 04-24-[address] Sb Ann Work Phone: [facility] Work Phone: Start: 04-24-2022 End: 04-24-[address] Sb Ann Work Phone: [facility]-Pulmonary Services/Neurology Start: 04-09-2022 Documentation procedure Mammog abraham Coordinator [facility] Start: 04-09-2022 Letter encounter Mammography Coordinator [facility] Department Start: 04-08-2022 End: 04-08-2022 Subsequent hospital visit by physician Screen Mammo [facility] Comment on above: Encounter for screen ing mammogram for breast cancer [Z12.31] Start: 03-30-2022 End: 03-30-2022 Patient encounter procedure Sarah Jones SHANK PIECE TACKER Work Phone: OB/Gynecology Comment on above: Encounter for gyneco logical examination (general) (routine) without abnormal findings (Primary Dx); Encounter for screening mammogram for breast cancer Start: 03-30-2022 End: 03-30-2022 Patient encounter status Sarah Jones WELLNESS EDUCATOR.SHANK PIECE TACKER Work Phone: OB/Gynecology Start: 03-13-2022 End: 03-13-[address] Sb Ann Work Phone: [facility] Work Phone: Start: 03-13-2022 End: 03-13-[address] Sb Ann Work Phone: [facility] Start: 01-09-2022 Encounter for genera l adult medical examination without abnormal findings Sb Ann [facility] Start: 11-26-2021 End: 11-26-2021 ambulatory [facility] Start: 11-26-[address] Consuelo Ann Work Phone: [facility] Start: 11-26-2021 End: 11-26-2021 Encounter for general adult medical examination without abnormal findings Dr. bS Ann Work Phone: [facility] [place] Start: 11-26-2021 End: 11-26-[address] Sb Ann Work Phone: [facility] [place] Start: 11-19-2021 End: 11-19-2021 [facility] Procedures Date Procedure Procedure Detail Performing Clinician Start: 09-21-2024 Dup-scan xtr veins unilateral/limited study Emily Lima MD Work Phone: Start: 04-23-2023 Screening mammograph y bi 2-view breast inc cad Ana Meza MD Work Phone: Start: 04-08-2022 End: 04-08-2022 Mammography Sarah Washingtoncalf WELLNESS EDUCATOR.C SLUDGE FILTRATION ATTENDANT Work Phone: Start: 03-13-2022 MRI of joint of lowe r extremity Dr. Sb Ann Work Phone: Start: 07-01-2020 Mammography Sarah [facility] gurmeet WELLNESS EDUCATOR.SHANK PIECE TACKER Work Phone: Start: 06-28-2020 Lipid 1996 panel - S farhan or Plasma Screen Ws Plan of Treatment Date Care Activity Detail Author Start: 2034 RSV Vaccine (1 - 1-d ose 75+ series) RSV Vaccine (1 - 1-dose 75+ series) [facility] Start: 06-28-2025 Lipid 1996 panel - S farhan or Plasma Lipid Screening [facility] Start: 06-28-2025 Lipid panel Lipid Screening [facility] Start: 06-28-2025 LIPID SCREEN LIPID SCREEN [facility] Start: 06-25-2025 HPV TESTING HPV TESTING [facility] Start: 06-25-2025 PAP TESTING PAP TESTING [facility] Start: 06-25-2025 Screening for malign ant neoplasm of cervix [facility] Start: 11-13-2024 Influenza vaccination Influenza Vacc ine (#1) [facility] Start: 09-21-2024 End: 09-21-2024 Patient encounter procedure 09/21/2024 7:30 AM EDT Appointment [facility] [address] [place] [id number] Rash [R21]; Pain of left lower extremity [M79.605] [facility] Comment on above: Rash [R21]; Pain of left lower extremity [M79.605] Start: 09-20-2024 End: 10-19-2025 US Lower extremity vein - left US DVT LOWER LEFT Radiology STAT Rash Pain of left lower extremity Expected: 09/20/2024, Expires: 10/19/2025 [facility] Work Phone: Comment on above: Expected: 09/20/2024 , Expires: 10/19/2025 Start: 04-23-2024 Screening for malign ant neoplasm of breast Mammogram Screening [facility] Start: 03-15-2024 Advance Directive Discussion Advance Directive Discussion [facility] Start: 02-15-2024 Screening for osteoporosis Bone Density Screening [facility] Start: 11-14-2023 Covid-19 Vaccine () Covid-19 Vaccine () [facility] Start: 06-29-2023 DIABETES SCREEN DIABETES SCREEN [facility] Start: 06-29-2023 Diabetes Screening Diabetes Screenin g [facility] Start: 04-08-2023 Mammography [facility] Start: 03-15-2023 [facility] Start: 11-13-2022 Influenza vaccination C [facility] Start: 03-15-2022 DEPRESSION ASSESSMENT [facility]ION [facility] Start: 11-13-2021 Influenza vaccination INFLUENZA (#1) [facility] Start: 07-01-2021 Mammography MAMMOGRAM [facility] Start: 2019 RSV Vaccine (1 - 1-d ose 60+ series) RSV Vaccine (1 - 1-dose 60+ series) [facility] Start: 01-08-2018 Urine microalbumin profile DTaP,Tdap,Td Vaccine (2 - Td or Tdap) [facility] Start: 2009 Pneumococcal Vaccine : 50+ (1 of 1 - PCV) Pneumococcal Vaccine: 50+ (1 of 1 - PCV) [facility] Start: 2009 SHINGRIX VACCINE (1 of 2) SHINGRIX VACCINE (1 of 2) [facility] Start: 02-15-2004 COLOGUARD (FIT-DNA) COLOGUARD (FIT-D NA) [facility] Start: 02-15-2004 Colonoscopy COLONOSCOPY [facility] Start: 02-15-2004 COLORECTAL CANCER SCREENING COLORECTAL CANCER SCREENING [facility] Start: 02-15-[address] COLONOGRAPHY [facility] Start: 02-15-2004 FECAL OCCULT BLOOD FECAL OCCULT BLOO D [facility] Start: 02-15-2004 Screening for malign ant neoplasm of colon [facility] Start: 02-15-2004 [facility] Start: 1978 Urine microalbumin profile DTAP,TDAP,TD (1 - Tdap) [facility] Start: 1977 Anxiety Screening Anxiety Screening [facility] Start: 1977 Depression Screening Depression Scre ening [facility] Start: 1977 HEPATITIS C SCREENING HEPATITIS C [facility] Start: 1977 Hepatitis C screening Hepatitis C [facility] Start: 1977 HIV SCREENING HIV SCREENING [facility] Start: 1977 HIV screening HIV Screening [facility] Start: 1959 COVID-19 VACCINE (#1) COVID-19 VACCI NE (#1) [facility] End: 04-29-2023 AFSHAN SCREENING AFSHAN SCREENING Radiology Routine Encounter for screening mammogram for breast cancer 1 Occurrences starting 03/30/2022 until 04/29/2023 [facility] Work Phone: Comment on above: 1 Occurrences starti ng 03/30/2022 until 04/29/2023 [facility] Payers Date Payer Category Payer Private Health Insurance [id number] 2022 Private Health Insurance [id number] 2022 Unknown 0 2021 Self-pay [id number] 2021 Unknown [id number] 2019 Unknown [id number] Unknown [facility] [id number] Unknown [id number] Unknown [id number] Unknown [id number] Unknown [id number] Unknown [id number] Social History Date Type Detail Facility Start: [facility]-26-2021 [facility] Start: 1960 Sex Assigned At Female C [facility] Start: 03-30-2022 Tobacco smoking stat [facility] Never smoked tobacco [facility] Work Phone: Start: 03-30-2022 Tobacco use and exposure Smokeless tobacco non-user [facility] Work Phone: Start: 03-30-2022 End: 10-26-2022 Alcohol intake Current drinker of alcohol (finding) [facility] Start: 1960 Sex Assigned At Not on file C [facility] Start: 03-30-2022 End: 10-26-2022 History of Social function [facility] Start: 03-30-2022 End: 10-26-2022 Tobacco use panel [facility] National Score (1-10 0), lower number is lower risk 46 [facility] Start: 04-01-2022 Gender identity Identifies as female gender (finding) [facility] Start: 04-01-2022 Sexual orientation Heterosexual (fin ding) [facility] Clinical Notes 03-30-2022 to 09-21-2024 Evelia Major, TECHNOLOGIST - 09/21/2024 7:30 AM EDTPatient Emily Hernandez MD - 09/19/2024 5:31 PM Briana - Coordinator, Mammography - 04/23/2023 10:28 AM EST Note Date & Type Note Facility 09-21-2024 History of Present illness Narrative Radiology Service Progress Note PATIENT NAME: Jenny Chavarria DATE OF SERVICE: September 21, 2024 TIME: 7:47 AM PATIENT IDENTITY VERIFICATION COMPLETED USING TWO (2) IDENTIFIERS: Name and Date of confirmed by patient verbally. FALL SCREENING: Has the patient had 2 falls in the last year or 1 fall with injury or currently using an Ambulatory Assistive Device (Walker, Cane, Wheelchair, Crutches, etc.)? No PATIENT GENDER DATA: Assigned female at . status: : No status: NO. PATIENT RELEVANT IMPLANT DATA REVIEWED: Yes PATIENT PRESENTS WITH AN IMPLANTABLE OR ATTACHED GARAGE LABORER: No RADIOLOGY DEPARTMENT: Ultrasound PERIPHERAL IV DATA: Not applicable SIGNED BY: Evelia Major TECHNOLOGIST September 21, 2024 7:47 AM documented in this encounter [facility] 09-19-2024 Instructions Emily Lima MD - 09/19/2024 5:42 PM EDT START THE MEDS AND GET THE ULTRASOUND TOMORROW WE WILL NOTIFY OF RESULTS IF ANY WORSE GO TO THE ED documented in this encounter [facility] 09-19-2024 Note HNO ID: [id number] Author: EMILY LIMA MD Service: ? Author Type: Physician Type: Progress Notes Filed: 09/19/2024 17:49 Note Text: URGENT CARE MILLY Chavarria is a 64 year old female. Patient presents with: Rash: bug bite on left leg x 2.5-3 weeks Pt is here with 3 week hx of left leg pain and rash and itching at times no injury started with feeling of a bug bite while driving the car then noticed a red rash that has spread no warmth but feels pain in the area and has spread to whole leg no calf swelling no hx of Dvt no dyspnea no recent travle no recent surgeries Rash Pertinent negatives include no fatigue or fever. Review of Systems Constitutional: Negative for chills, fatigue and fever. Musculoskeletal: Positive for arthralgias, joint swelling and myalgias. Skin: Positive for rash. Neurological: Negative for weakness and numbness. Objective BP 122/72 Pulse 74 Temp 36.9 ?C (98.5 ?F) Resp 16 Wt 86 kg (189 lb 9.5 oz) LMP 11/29/2009 SpO2 99% BMI 27.80 kg/m? Physical Exam Vitals and nursing note reviewed. Constitutional: Appearance: Normal appearance. She is not ill-appearing. Musculoskeletal: General: No deformity. Normal range of motion. Right lower leg: No edema. Left lower leg: No edema. Skin: Findings: Erythema and rash present. No bruising. Comments: Extensive patchy red area around left upper thigh and posterior area no warmth no masses or abscess palpable no calf tenderness no cords palpated Neurological: Mental Status: She is alert. Sensory: No sensory deficit. Motor: No weakness. Coordination: Coordination normal. Deep Tendon Reflexes: Reflexes normal. Psychiatric: Mood and Affect: Mood normal. Behavior: Behavior normal. {ASSESSMENT/PLAN: 1. Cellulitis of skin - ICD9: 682.9, ICD10: L03.90 (primary diagnosis) - SULFAMETHOXAZOLE 800 MG-TRIMETHOPRIM 160 MG TABLET 2. Rash - ICD9: 782.1, ICD10: R21 - US DVT LOWER LEFT - METHYLPREDNISOLONE 4 MG TABLETS IN A DOSE PACK 3. Pain of left lower extremity - ICD9: 729.5, ICD10: M79.605 Will treat for possible infection but will check an us for visualization of area of concern - US DVT LOWER LEFT - METHYLPREDNISOLONE 4 MG TABLETS IN A DOSE PACK Emily Lima MD History and Record Review Clinical information obtained from an independent historian. History obtained from or confirmed by: spouse. Systemic symptoms present included: Arthralgias and myalgias Differential Diagnoses - cellulitis is more likely for the following reason(s): suggested by HANDP - DVT is less likely for the following reason(s): await US tomorrow, HANDP not suggestive Disposition The patient was discharged. Procedures [facility] 09-19-2024 History of Present illness Narrative [facility] CARE MILLY Chavarria is a 64 year old female. Patient presents with: Rash: bug bite on left leg x 2.5-3 weeks Pt is here with 3 week hx of left leg pain and rash and itching at times no injury started with feeling of a bug bite while driving the car then noticed a red rash that has spread no warmth but feels pain in the area and has spread to whole leg no calf swelling no hx of Dvt no dyspnea no recent travle no recent surgeries Rash Pertinent negatives include no fatigue or fever. Review of Systems Constitutional: Negative for chills, fatigue and fever. Musculoskeletal: Positive for arthralgias, joint swelling and myalgias. Skin: Positive for rash. Neurological: Negative for weakness and numbness. Objective BP 122/72 Pulse 74 Temp 36.9 C (98.5 F) Resp 16 Wt 86 kg (189 lb 9.5 oz) LMP 11/29/2009 SpO2 99% BMI 27.80 kg/m Physical Exam Vitals and nursing note reviewed. Constitutional: Appearance: Normal appearance. She is not ill-appearing. Musculoskeletal: General: No deformity. Normal range of motion. Right lower leg: No edema. Left lower leg: No edema. Skin: Findings: Erythema and rash present. No bruising. Comments: Extensive patchy red area around left upper thigh and posterior area no warmth no masses or abscess palpable no calf tenderness no cords palpated Neurological: Mental Status: She is alert. Sensory: No sensory deficit. Motor: No weakness. Coordination: Coordination normal. Deep Tendon Reflexes: Reflexes normal. Psychiatric: Mood and Affect: Mood normal. Behavior: Behavior normal. {ASSESSMENT/PLAN: 1. Cellulitis of skin - ICD9: 682.9, ICD10: L03.90 (primary diagnosis) - SULFAMETHOXAZOLE 800 MG-TRIMETHOPRIM 160 MG TABLET 2. Rash - ICD9: 782.1, ICD10: R21 - US DVT LOWER LEFT - METHYLPREDNISOLONE 4 MG TABLETS IN A DOSE PACK 3. Pain of left lower extremity - ICD9: 729.5, ICD10: M79.605 Will treat for possible infection but will check an us for visualization of area of concern - US DVT LOWER LEFT - METHYLPREDNISOLONE 4 MG TABLETS IN A DOSE PACK Emily Lima MD History and Record Review Clinical information obtained from an independent historian. History obtained from or confirmed by: spouse. Systemic symptoms present included: Arthralgias and myalgias Differential Diagnoses - cellulitis is more likely for the following reason(s): suggested by H&P - DVT is less likely for the following reason(s): await US tomorrow, H&P not suggestive Disposition The patient was discharged. Procedures documented in this encounter [facility] 04-23-2023 Miscellaneous Notes April 23, 2023 PID: [id number] Jenny Chavarria [address] [place] [address] Dear Ms. Chavarria, We are pleased to inform you that the results of your recent breast imaging exam on 04/23/2023 are normal. Your mammogram demonstrates that you have dense breast tissue, which could hide abnormalities. Dense breast tissue, in and of itself, is a relatively common condition. Therefore, this information is not provided to cause undue concern; rather, it is to raise your awareness and promote discussion with your health care provider regarding the presence of dense breast tissue in addition to other risk factors. Early detection of cancer is very important. We also understand recommendations regarding breast cancer screening are controversial. Please discuss with your primary care provider which strategy is best for you and whether a mammogram is right for you. Your imaging studies and report will be kept on file at [facility] as part of your permanent medical record and are available for your continuing care. Thank you for allowing us to help in meeting your health care needs. Sincerely, Dr. Mcbride Interpreting Radiologist [facility] (Normal over 40) documented in this encounter [facility] 04-23-2023 History of Present illness Narrative Radiology Service Progress Note PATIENT NAME: Jenny Chavarria DATE OF SERVICE: April 23, 2023 TIME: 7:05 AM PATIENT IDENTITY VERIFICATION COMPLETED USING TWO (2) IDENTIFIERS: Name and Date of confirmed by patient verbally. FALL SCREENING: Has the patient had 2 falls in the last year or 1 fall with injury or currently using an Ambulatory Assistive Device (Walker, Cane, Wheelchair, Crutches, etc.)? No PATIENT GENDER DATA: Female. status: : No status: NO. PATIENT RELEVANT IMPLANT DATA REVIEWED: Not Applicable PATIENT PRESENTS WITH AN IMPLANTABLE OR ATTACHED GARAGE LABORER: No RADIOLOGY DEPARTMENT: Mammography PERIPHERAL IV DATA: Not applicable SIGNED BY: RT Brenna(R) April 23, 2023 7:05 AM documented in this encounter [facility] 10-26-2022 History of Present illness Narrative Subjective HPI Nontoxic-appearing female presents urgent care chief complaint right ear pain and pressure. Duration of symptoms 2 days. Associated symptoms right ear pain pressure and muffled hearing. Has worsened recently. Has used Motrin this is helped. No foreign body sensation otorrhea or loss of hearing. Hearing is slightly muffled. Risk factors earplugs and Q-tips. Denies any fever body aches chills productive cough chest pain shortness of breath pleuritic pain hemoptysis nausea vomiting abdominal pain change in bowel or bladder habits. Past medical history prescription medication use and allergies reviewed. .Patient presents with: Ear Pain: right ear pressure x 3 days PAST MEDICAL HISTORY Diagnosis Date Menorrhagia, premenopausal PAST SURGICAL HISTORY Procedure Laterality Date NOVASURE 12/26/2009 ALLERGIES Patient has no known allergies. MEDICATIONS escitalopram oxalate (LEXAPRO) 10 mg tablet Take 10 mg by mouth once daily. FAMILY HISTORY Problem Relation Age of Onset Hypertension Mother Cancer Father prostate Aneurysm Father AAA Stroke Father Hypertension Father Social History Tobacco Use Smoking status: Never Smokeless tobacco: Never Vaping Use Vaping Use: Never used Substance Use Topics Alcohol use: Yes Comment: socially occasionally Drug use: No BP 124/70 Pulse 74 Temp 36.6 C (97.9 F) Resp 16 Wt 87.1 kg (192 lb) LMP 11/29/2009 SpO2 95% BMI 28.15 kg/m Review of Systems Constitutional: Negative for chills, fever and malaise/fatigue. HENT: Positive for ear pain. Negative for congestion, ear discharge, hearing loss, sinus pain, sore throat and tinnitus. Eyes: Negative for blurred vision, pain, discharge and redness. Respiratory: Negative for cough, hemoptysis, sputum production, shortness of breath, wheezing and stridor. Cardiovascular: Negative for chest pain. Gastrointestinal: Negative for abdominal pain, diarrhea, nausea and vomiting. Musculoskeletal: Negative for myalgias. Skin: Negative for itching and rash. Neurological: Negative for dizziness and headaches. Objective Physical Exam Constitutional: General: She is not in acute distress. Appearance: She is not diaphoretic. HENT: Head: Normocephalic. Jaw: No trismus, tenderness, swelling or pain on movement. Right Ear: Hearing, tympanic membrane and external ear normal. Left Ear: Hearing, tympanic membrane, ear canal and external ear normal. Ears: Comments: Erythema edema noted right auditory canal. TM pearly hanson and intact. Moderate amount of cerumen noted as well in ear canal. Tragal tenderness. No mastoid tenderness external erythema or otorrhea noted. Mouth/Throat: Mouth: Mucous membranes are moist. Pharynx: Oropharynx is clear. Uvula midline. No pharyngeal swelling, oropharyngeal exudate, posterior oropharyngeal erythema or uvula swelling. Eyes: Conjunctiva/sclera: Conjunctivae normal. Pupils: Pupils are equal, round, and reactive to light. Cardiovascular: Rate and Rhythm: Normal rate and regular rhythm. Heart sounds: Normal heart sounds. Pulmonary: Effort: Pulmonary effort is normal. No tachypnea, accessory muscle usage or respiratory distress. Breath sounds: Normal breath sounds. No stridor. No wheezing, rhonchi or rales. Abdominal: General: There is no distension. Palpations: Abdomen is soft. Tenderness: There is no abdominal tenderness. There is no guarding or rebound. Musculoskeletal: Cervical back: Normal range of motion and neck supple. No edema, erythema, rigidity or tenderness. No pain with movement. Normal range of motion. Lymphadenopathy: Cervical: No cervical adenopathy. Skin: General: Skin is warm and dry. Neurological: Mental Status: She is alert and oriented to person, place, and time. ASSESSMENT/PLAN: 1. Acute otitis externa of left ear, unspecified type - ICD9: 380.10, ICD10: H60.502 Diagnosed with otitis external of left ear. Placed on ofloxacin otic. Patient was educated on supportive therapies. Patient will follow up with primary care provider as needed. Patient was instructed to immediately proceed to emergency room for any new, worsening, or symptoms lasting longer than anticipated. The patient's clinical presentation is otherwise unremarkable at this time. Based on exam and clinical finding, the patient is stable for discharge. Plan of care was discussed with patient. Patient verbalizes understanding and agrees to plan of care. This note was generated using [email or web address] software. It may contain errors in wording, punctuation, or spelling. Anthony Anderson APRN.TANO documented in this encounter [facility] 04-09-2022 Miscellaneous Notes April 10, 2022 PID: [id number] Jenny Chavarria [address] [place] [address] Dear Ms. Chavarria, We are pleased to inform you that the results of your recent breast imaging exam on 04/08/2022 are normal. Your mammogram demonstrates that you have dense breast tissue, which could hide abnormalities. Dense breast tissue, in and of itself, is a relatively common condition. Therefore, this information is not provided to cause undue concern; rather, it is to raise your awareness and promote discussion with your health care provider regarding the presence of dense breast tissue in addition to other risk factors. Early detection of cancer is very important. We also understand recommendations regarding breast cancer screening are controversial. Please discuss with your primary care provider which strategy is best for you and whether a mammogram is right for you. Your imaging studies and report will be kept on file at [facility] as part of your permanent medical record and are available for your continuing care. Thank you for allowing us to help in meeting your health care needs. Sincerely, Dr. Montiel Interpreting Radiologist [facility] (Normal over 40) documented in this encounter [facility] 04-08-2022 History of Present illness Narrative Radiology Service Progress Note PATIENT NAME: Jenny Chavarria DATE OF SERVICE: April 08, 2022 TIME: 7:15 AM PATIENT IDENTITY VERIFICATION COMPLETED USING TWO (2) IDENTIFIERS: Name and Date of confirmed by patient verbally. FALL SCREENING: Has the patient had 2 falls in the last year or 1 fall with injury or currently using an Ambulatory Assistive Device (Walker, Cane, Wheelchair, Crutches, etc.)? No PATIENT GENDER DATA: Female. status: : No status: NO. PATIENT RELEVANT IMPLANT DATA REVIEWED: Not Applicable RADIOLOGY DEPARTMENT: Mammography PERIPHERAL IV DATA: Not applicable SIGNED BY: Navya Dorantes April 08, 2022 7:15 AM documented in this encounter [facility] 03-30-2022 History of Present illness Narrative Jenny is a 62 year old who presents for an annual gynecologic exam without complaints. Postmenopausal: Yes HRT use: No. 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 LMP: 11/29/2009, Ablation Age at Menarche: Age at First : Age at Menopause: Senior Supply Chain Analyst History Comments: Sexual Activity: Yes; Male Contraception: No contraception data on record PAST MEDICAL HISTORY Diagnosis Date Menorrhagia, premenopausal PAST SURGICAL HISTORY Procedure Laterality Date NOVASURE 12/26/2009 FAMILY HISTORY Problem Relation Age of Onset Hypertension Mother Cancer Father prostate Aneurysm Father AAA Stroke Father Hypertension Father SOCIAL HISTORY Social History Tobacco Use Smoking status: Never Smokeless tobacco: Never Vaping Use Vaping Use: Never used Substance Use Topics Alcohol use: Yes Comment: socially occasionally Drug use: No REVIEW OF SYSTEMS Abdomen: No abdominal pain, nausea, vomiting, diarrhea, or constipation. No bloating, early satiety, indigestion, or increased flatulence. Bladder: No dysuria, gross hematuria, urinary frequency, urinary urgency, or incontinence Breast: No breast lumps, nipple d/c, overlying skin changes, redness or skin retraction Allergies and current medication updated:Yes EXAM: Ht 5' 9.25 (1.76m) Wt 184 lb 12.8 oz (83.8kg) LMP 11/29/2009 BMI 27.09 kg/(m^2). GENERAL: pleasant, female in no apparent distress HEENT: Normocephalic, atraumatic, and no lesions NECK: Supple, full range of motion, no adenopathy, and thyroid normal DERMATOLOGY: Normal, without lesions, non-icteric, and non-hirsute BREAST: soft, non-tender, symmetric, no dominant mass, normal nipple-areolar complex, no lymphadenopathy, and no nipple discharge CHEST: Normal inspiratory effort ABDOMEN: soft, non-tender, and no masses PELVIC: external genitalia normal, normal Bartholin's glands, urethra, Severance's glands, no vulvar lesions, no cervical lesions, physiologic discharge present, normal appearing perineal body and perianal region BIMANUAL: uterus normal size, shape and consistency, no adnexal masses, and non-tender RECTOVAGINAL: deferred. NEURO: alert and oriented x3,exam grossly non-focal EXTREMITIES: normal ASSESSMENT/PLAN: 1) Health maintenance: Pap/HPV up to date. Mammogram ordered Nutrition, exercise and routine health maintenance exams reviewed. Calcium/Vitamin D supplementation information provided. Colon cancer screening: up to date with screening 2) Follow up one year or sooner as needed Sarah Jones APRN.TANO documented in this encounter [facility] Evaluation note Diagnosis Onset Date Encounter for wellness examination in adult acute Skin rash acute [facility] Work Phone: Evpsvation note* Diagnosis Encounter for gynecological examination (general) (routine) without abnormal findings- Primary Encounter for screening mammogram for breast cancer documented in this encounter [facility] noteNo assessment information [facility]: [facility]* Diagnosis Acute otitis externa of left ear, unspecified type- Primary documented in this encounter [facility] note* Diagnosis Encounter for screening mammogram for breast cancer documented in this encounter [facility] note* Diagnosis Encounter for screening mammogram for malignant neoplasm of breast Other screening mammogram documented in this encounter [facility] note* Diagnosis Cellulitis of skin- Primary Cellulitis and abscess of unspecified site Rash Rash and other nonspecific skin eruption Pain of left lower extremity documented in this encounter [facility] note* Diagnosis Rash Rash and other nonspecific skin eruption Pain of left lower extremity documented in this encounter [facility] for referral (narrative)* Diagnostic Procedure Only (Routine) - Pending Review Specialty Diagnoses / Procedures Referred By Lester t Referred To Contact [facility] Diagnoses Encounter for screening mammogram for breast cancer Procedures AFSHAN SCREENING SCREENING MAMMOGRAPHY BI 2-VIEW BREAST INC CAD Sarah Jones APRN.SHANK [employer]IECE TACKER [address] [place] [address] [facility] [address] [place] [address] Referral ID Status Reason Start Date Expiration Date Visits Requested Visits Authorized [id number] Pending Review Auto-Generat ed Referral 03/30/2022 04/29/2023 1 1 [facility] for referral (narrative)* Diagnostic Procedure Only (Routine) - Closed Specialty Diagnoses / Procedures Referred By Lester t Referred To Contact [facility] Diagnoses Encounter for screening mammogram for breast cancer Procedures AFSHAN SCREENING SCREENING MAMMOGRAPHY BI 2-VIEW BREAST INC CAD Sarah Jones APRN.SHANK PIECE TACKER [address] [place] [address] [facility] [address] [place] [address] Referral ID Status Reason Start Date Expiration Date V isits Requested Visits Authorized [id number] Closed Auto-Generate d Referral 03/30/2022 04/29/2023 1 1 [facility] for referral (narrative)* Diagnostic Procedure Only (Routine) - Closed Specialty Diagnoses / Procedures Referred By Lester mariscal Referred To Contact [facility] Diagnoses Encounter for screening mammogram for malignant neoplasm of breast Procedures AFSHAN SCREENING SCREENING MAMMOGRAPHY BI 2-VIEW BREAST INC CAD Ana Meza MD [address] [place] [address] [facility] [address] [place] [address] Referral ID Status Reason Start Date Expiration Date V isits Requested Visits Authorized [id number] Closed Auto-Generate d Referral 03/26/2022 04/24/2023 1 1 [facility] for visit Narrative* Diagnostic Procedure Only (Routine) - Closed Specialty Diagnoses / Procedures Referred By Contsudha t Referred To Contact [facility] Diagnoses Encounter for screening mammogram for breast cancer Procedures AFSHAN SCREENING SCREENING MAMMOGRAPHY BI 2-VIEW BREAST INC CAD Sarah Jones APRN.SHANK [employer]IECE TACKER [address] [place] [address] [facility] [address] [place] [address] Referral ID Status Reason Start Date Expiration Date V isits Requested Visits Authorized [id number] Closed Auto-Generate d Referral 03/30/2022 04/29/2023 1 1 [facility] for visit Narrative* Diagnostic Procedure Only (Routine) - Closed Specialty Diagnoses / Procedures Referred By Contac t Referred To Contact [facility] Diagnoses Encounter for screening mammogram for malignant neoplasm of breast Procedures AFSHAN SCREENING SCREENING MAMMOGRAPHY BI 2-VIEW BREAST INC CAD Ana Meza MD [address] [place] [address] [facility] [address] [place] [address] Referral ID Status Reason Start Date Expiration Date V isits Requested Visits Authorized [id number] Closed Auto-Generate d Referral 03/26/2022 04/24/2023 1 1 [facility] for visit Narrative* Diagnostic Procedure Only (Urgent) - Closed Specialty Diagnoses / Procedures Referred By Lester mariscal Referred To Contact [facility] Diagnoses Rash Pain of left lower extremity Procedures US DVT LOWER LEFT DUP-SCAN XTR VEINS UNILATERAL/[place] [address] [place] [address] Phone: tel: fax: [place] [phone] Referral ID Status Reason Start Date Expiration Date V isits Requested Visits Authorized [id number] Closed Auto-Generate d Referral 09/20/2024 10/19/2025 1 1 [facility] Chief Complaint and Reason for Visit Chief Complaint 6-8M F/U Unilateral primary osteoarthritis, left knee Reason for Visit Encounter for hans examination in adult Skin rash Chief Complaint Unilateral primary o steoarthritis, left knee PRE OP PRE OP Family History No Family History Records Found Relationship Condition Age at Onset Recorded Date/T mariama father Malignant neoplasm Unknown Hypertension Unknown mother Hypertension Unknown Summary Purpose Advance Directives No Advanced Directives Records FoundNo Advanced Directives Records Found Additional Source Comments Goals (unrecognized section and content) Goals may be documented in a n alternate sectionGoals may be documented in an alternate section Source Comments (unrecognize d section and content) In the event this informatio n is protected by the Federal Confidentiality of Alcohol and Drug Abuse Patient Records regulations: The Federal rules restrict any use of the information to criminally investigate or prosecute any alcohol or drug abuse patient.[facility] the event this information is protected by the Federal Confidentiality of Alcohol and Drug Abuse Patient Records regulations: The Federal rules restrict any use of the information to criminally investigate or prosecute any alcohol or drug abuse patient.[facility] the event this information is protected by the Federal Confidentiality of Alcohol and Drug Abuse Patient Records regulations: The Federal rules restrict any use of the information to criminally investigate or prosecute any alcohol or drug abuse patient.[facility] the event this information is protected by the Federal Confidentiality of Alcohol and Drug Abuse Patient Records regulations: The Federal rules restrict any use of the information to criminally investigate or prosecute any alcohol or drug abuse patient.[facility] the event this information is protected by the Federal Confidentiality of Alcohol and Drug Abuse Patient Records regulations: The Federal rules restrict any use of the information to criminally investigate or prosecute any alcohol or drug abuse patient.[facility] the event this information is protected by the Federal Confidentiality of Alcohol and Drug Abuse Patient Records regulations: The Federal rules restrict any use of the information to criminally investigate or prosecute any alcohol or drug abuse patient.[facility] the event this information is protected by the Federal Confidentiality of Alcohol and Drug Abuse Patient Records regulations: The Federal rules restrict any use of the information to criminally investigate or prosecute any alcohol or drug abuse patient.[facility] the event this information is protected by the Federal Confidentiality of Alcohol and Drug Abuse Patient Records regulations: The Federal rules restrict any use of the information to criminally investigate or prosecute any alcohol or drug abuse patient.[facility] Reason for Visit (unrecogniz ed section and content) Reason Comments Yearly Exam Reason Comments Ear Pain right ear pressure x 3 days Reason Comments Rash bug bite on left leg x 2.5-3 weeks Care Teams (unrecognized sec tion and content) Team Status: Active Member Role Status Dates Dr. Sb Ann MD Primary Care Provider Active Team Status: Active Member Role Status Dates Dr. Sb Ann MD Primary Care Provider Active Dr. Inderjit Jean MD Attending Provider Active MICHELLE GillC Referring Provider Active Team Status: Inactive Member Role Status Dates Dr. Sb Ann MD Primary Care Provider Active Dr. Emily Dale DO Attending Provider, Referring Provider Active Team Status: Inactive Member Role Status Dates Dr. Sb Ann MD Primary Care Provider Active MIHCELLE GillC Attending Provider Active [employer] Technical Officer Relationship Specialty Start Date End Date Sb Ann MD [address] [address] PCP - General Internal Medicine 10/26/22 [employer] Technical Officer Relationship Specialty Start Date End Date Sb Ann MD [address] [id number] PCP - General Internal Medicine 10/26/22 [employer]il Science Technical Officer Relationship Specialty Start Date End Date Sb Ann MD [address] [address] PCP - General Internal Medicine 10/26/22 [employer]il Science Technical Officer Relationship Specialty Start Date End Date Sb Ann MD [address] [address] PCP - General Internal Medicine 10/26/22 Soil Science Technical Officer Relationship Specialty Start Date End Date Sb Ann MD [address] [place] [address] PCP - General Internal Medicine 10/26/22 INFORMATION SOURCE (unrecogn ized section and content) DATE CREATED AUTHOR 06/13/2022 [facility] [place] DATE CREATED AUTHOR AUTHOR'S MELL ATION 09/24/2024 [facility] FOR RECORDS PERTAINING TO PATIENTS WHO ARE OR HAVE BEEN ENROLLED IN A CHEMICAL DEPENDENCY/SUBSTANCEABUSE PROGRAM, SOME INFORMATION MAY BE OMITTED. This clinical summary was aggregated from multiple sources. Caution should be exercised in using it in the provision of clinical care. This summary normalizes information from multiple sources, and as a consequence, information in this document may materially change the coding, format and clinical context of patient data. In addition, data may be omitted in some cases. CLINICAL DECISIONS SHOULD BE BASED ON THE PRIMARY CLINICAL RECORDS. [employer] [facility]. provides no warranty or guarantee of the accuracy or completeness of information in this document.
[2024-09-24 06:12] LABS: Mucous, Urine 0 SEEN /hpf (<or=2+); Red Blood Cells-Urine 0 SEEN /hpf (0-5)
[2024-09-24 06:20] LABS: Color, Urine Yellow (Yellow); Glucose, Dipstick Normal (Normal); Ketone-Dipstick Negative (Negative); Leukocyte Esterase-Dipstick Negative /ul (Negative); Nitrite-Dipstick Negative (Negative); Occult Blood-Urine 10 /ul (Negative); Protein-Dipstick 30 mg/dl (Negative); Specific Gravity, Urine 1.015 (1.002-1.030); Urine Bilirubin Dipstick Negative (Negative)
[2024-09-24 06:31] LABS: Squamous Epithelial Cells - UA 0-5 SEEN /hpf (5-10)
--- NOTE | 2024-09-24 06:37 | CT_ITS ---
PROCEDURE: ABDOMEN/PELVIS WITHOUT CONT 09/24/2024 REASON FOR EXAM: PAIN TECHNIQUE: ABDOMEN/PELVIS WITHOUT CONT Noncontrast technique limits evaluation of the abdominal and pelvic viscera. Coronal and Sagittal reconstruction series were provided. One or more dose reduction techniques were used (e.g., Automated exposure control, adjustment of the mA and/or kV according to patient size, use of iterative reconstruction technique). RADIATION DOSE SUMMARY: DLP: 400 mGycm COMPARISON: None. FINDINGS: Lung bases: Unremarkable. Liver: The liver is normal in size with hepatic dome hypodensity, incompletely evaluated. No biliary ductal dilation. Gallbladder: No radiopaque stones within the gallbladder. Spleen: Normal in size. Pancreas: The unopacified pancreas is unremarkable. Adrenals: No adrenal mass. Kidneys: No hydronephrosis or nephrolithiasis. Bladder: Mildly distended and unremarkable. Reproductive Organs: Normal uterine size and contour. Ovaries are unremarkable. Bowel: The bowel loops are nondilated. No ascites or pneumoperitoneum. Normal appendix. Lymph nodes: Visualization is limited without the use of IV contrast. No large lymphadenopathy. Vasculature: Moderate calcific plaque of the aortoiliac vessels. Bones: Thoracolumbar spondylosis. Small fat containing right inguinal hernia. CT/Abdomen/Pelvis without Cont IMPRESSION: No acute abdominopelvic finding. Reading Location: [id number]
[2024-09-24 06:45] LABS: Hematocrit 42.3 % (37-47); Hemoglobin 14.1 g/dL (12.0-15.0); Immature Granulocytes Count 0.010 X10^3/uL (0.0-0.0); Mean Corp Hgb Conc 33.3 g/dL (32-36); Mean Corpuscular Volume 88.3 fL (81-99); Mean Platelet Vol. 10.3 fl (6.2-12.0); NRBC Flagged by Analyzer 0 % (0-5); Platelet Count 300 K/mm3 (150-450); RBC Distribution Width CV 12.8 % (11.6-14.6); RBC Distribution Width SD 41.3 fl (35.1-43.9); Red Blood Count 4.79 M/mm3 (4.2-5.4); White Blood Count 8.2 K/mm3 (4.4-11.0)
[2024-09-24 07:08] VITALS: BP 135/79; PULSE 65; RESP 15; TEMP 36.9; O2SAT 97
[2024-09-24 07:35] LABS: Anion Gap 15 (5-15); BUN 15 mg/dL (4-19); BUN/Creat Ratio 18.7 RATIO (10-20); Calcium,Total 9.1 mg/dL (7.6-11.0); Carbon Dioxide 16.9 mmol/L (21.0-32.0); Chloride 103 mmol/L (98-108); Estimated Creatinine Clearance 75.81 ml/min (50-250); Glucose 104 mg/dL (70-99); Potassium 4.2 mmol/L (3.3-5.1)
[2024-09-24 07:57] VITALS: BP 125/84; PULSE 66; RESP 15; TEMP 37.1; O2SAT 97
== END 2024-09-24 08:02 | disposition home or self-care (01) ==
PROVIDERS: Emergency Provider Surgery; PCP Internal Medicine; Visit Provider Surgery
DX: R10.9 Unspecified abdominal pain (principal); R30.0 Dysuria
CPT/HCPCS: 74176; 80048; 81001; 85025; 99283; A4216

== ENCOUNTER → 2024-09-27 | Outpatient (CLI) | payer OTHER, SELFPAY ==
[2024-09-27 13:13] LABS: Hematocrit 44.9 % (37-47); Hemoglobin 15.4 g/dL (12.0-15.0); Immature Granulocytes Count 0.030 X10^3/uL (0.0-0.0); Mean Corp Hgb Conc 34.3 g/dL (32-36); Mean Corpuscular Volume 84.6 fL (81-99); Mean Platelet Vol. 9.9 fl (6.2-12.0); NRBC Flagged by Analyzer 0 % (0-5); Platelet Count 325 K/mm3 (150-450); RBC Distribution Width CV 12.6 % (11.6-14.6); RBC Distribution Width SD 38.7 fl (35.1-43.9); Red Blood Count 5.31 M/mm3 (4.2-5.4); White Blood Count 9.4 K/mm3 (4.4-11.0)
[2024-09-27 14:34] LABS: AST(SGOT) 17 U/L (<=31); Alanine Aminotransfer ALT/SGPT 16 U/L (<=34); Albumin, Serum 4.6 g/dL (3.4-4.8); Alkaline Phosphatase 132 U/L (35-104); Anion Gap 15 (5-15); BUN 21 mg/dL (4-19); BUN/Creat Ratio 25.4 RATIO (10-20); CPK Total, Creatine Kinase 55 U/L (24-195); CRP 18.50 mg/L (0.0-3.0); Calcium,Total 9.7 mg/dL (7.6-11.0); Carbon Dioxide 22.9 mmol/L (21.0-32.0); Chloride 99 mmol/L (98-108); Cholesterol 200 mg/dL (<=200); Globulin 3.3 g/dL (2.2-4.2); Glucose 102 mg/dL (70-99); Low Density Lipoprotein Calc. 134 mg/dL; Potassium 3.5 mmol/L (3.3-5.1); Triglycerides 126 mg/dL; Very Low Density Lipoprotein 25 mg/dL (5-40); cholesterol:hdl ratio screen 4.94
--- OUTSIDE RECORDS SUMMARY | 2024-09-27 22:43 | XMS RPT_ITS | CCD ---
Author Organization [facility] Care Team Providers Care Home Help Aide Name Role Phone Dr. Sb Ann Primary Care Provider Dr. Sb Ann Attending Provider [phone] Dr. Sb Ann Referring Provider [phone] Unavailable Primary Care Provider UnavailDr. Sb Kincaid Primary Care Provider Dr. Inderjit Jean Attending Provider [phone] ROYA Bradshaw Referring Provider [phone] Sb Ann MD Primary Care Provider [phone] Sb Ann MD Primary Care Provider [phone] SB ANN Primary Care Unavailable EMILY LIMA Attending Unavailable Dr. Sb Ann MD Primary Care Provider [phone] Dr. Alphonse Lowry DO Emergency Provider EMILY LIMA Referring Unavailable SB ANN Primary Care Unavailable Dr. Sb Ann MD Attending Provider Dr. Sb Ann MD Referring Provider Sb Ann Primary Care Unavailable Sb Ann Attending Unavailable Alphonse Lowry Attending UnavailSb Kincaid Primary Care Unavailable Sb Ann Primary Care Unavailable Sb Ann Attending Unavailable Sb Ann Referring Unavailable Medications Current Medications Medication Drug Class(es) Dates Sig (Normalized) Sig (Original) acyclovir 0.05 mg/mg topical ointment (10 sources) Herpesvirus Nucleoside Analog DNA Polymerase Inhibitor, Herpes Simplex Virus Nucleoside Analog DNA Polymerase Inhibitor, Herpes Zoster Virus Nucleoside Analog DNA Polymerase Inhibitor Start: 11-26-2021 End: 02-18-2023 Acyclovir 5 % ointment Active 1 NMA TOPICAL .twice daily 15 5 2 February 18, 2023 10:36am Start: 11-26-2021 End: 11-26-2021 Acyclovir 5 % cream Disconti nued 1 NMA TOPICAL .twice daily 5 5 2 November 26, 2021 12:00am November 26, 2021 12:52pm doxycycline hyclate 100 mg oral tablet (1 source) Tetracycline-class Drug Start: 09-27-2024 take 1 tablet by mouth twice daily Doxycycline Hyclate 100 mg tablet Active 100 mg PO TWICE A DAY September 27, 2024 12:00am Take medication with a couple of crackers on an empty stomach with a small glass of water. Do not take with dairy products. Do not eat or drink for 30 minutes after taking. methylPREDNISolone (2 sources) Corticosteroid Start: 09-19-2024 End: [...] mg / trimethoprim 160 mg oral tablet (3 sources) Dihydrofolate Reductase Inhibitor Antibacterial, Sulfonamide Antimicrobial Start: 09-27-2024 Sulfamethoxazole-Trim ethoprim (Bactrim Ds) 800-160 mg tablet Active 1 {tbl} PO Q12H 10 September 27, 2024 12:00am Start: 09-19-2024 End: 09-26-2024 take 1 tablet by mouth twice daily sulfamethoxazole-trimethoprim (BACTRIM D S) 800-160 mg per tablet Indications: Cellulitis of skin Take 1 tablet by mouth two times a day for 7 days. 14 tablet 09/19/2024 09/26/2024 Active Completed/Discontinued Medications Medication Drug Class(es) Dates Sig (Normalized) Sig (Original) cephalexin 500 mg oral capsule (4 sources) Cephalosporin Antibacterial Start: 10-30-2020 End: 11-25-2020 Cephalexin 500 mg capsule Discontinued NMA PO October 30, 2020 12:00am November 25, 2020 8:10am Start: 10-30-2020 End: 11-25-2020 Cephalexin Discontinued EACH PO October 29, 2020 11:00pm November 25, 2020 7:10am escitalopram 10 mg oral tablet (20 sources) Serotonin Reuptake Inhibitor Start: 02-26-2021 End: 03-24-2024 take 1 tablet by mouth once daily Escitalopram Oxalate 10 mg tablet Discontinued 10 mg PO DAILY 90 February 18, 2023 10:36am March 24, 2024 3:49pm Comment on above: Take 10 mg by mouth once daily. levoFLOXacin 500 mg oral tablet (4 sources) Quinolone Antimicrobial Start: 11-01-2020 End: 11-25-2020 take 1 tablet by mouth once daily Levofloxacin 500 mg tablet Discontinued 500 mg PO DAILY 7 November 01, 2020 12:00am November 25, 2020 8:10am phenazopyridine hydrochloride 200 mg oral tablet (4 sources) Start: 10-30-2020 End: 11-25-2020 Phenazopyridine 200 mg tablet Discontinued NMA PO October 30, 2020 12:00am November 25, 2020 8:11am Start: 10-30-2020 End: 11-25-2020 Phenazopyridine Discontinued EACH PO October 29, 2020 11:00pm November 25, 2020 7:11am Problems Problem Classification Problem Date Documented Date Episodic/Chronic Abdominal pain (2 sources) Abdominal pain; Translations: [Unspecified abdominal pain] 09-24-2024 Episodic Anxiety disorders (8 sources) Anxiety; Translations: [Anxiety disorder, unspecified] 02-26-2021 Chronic Disorders of lipid metabolism (6 sources) Raised low density lipoprotein cholesterol; Translations: [Pure hypercholesterolemia , unspecified] Onset: 09-27-2024 07-10-2020 Chronic Genitourinary symptoms and ill-defined conditions (2 sources) Dysuria; Translations: [Hesitancy of micturition] Onset: 09-27-2024 Episodic Other connective tissue disease (4 sources) Pain in left lower limb; Translations: [Pain in left leg] 09-19-2024 Episodic Other connective tissue disease (2 sources) Pain in left leg; Translations: [Pain of left lower extremity] Onset: 09-19-2024 Episodic Other ear and sense organ disorders (1 source) Acute otitis externa of left ear; Translations: [Unspecified acute noninfective otitis externa, left ear] 10-26-2022 Episodic Other lower respiratory disease (4 sources) Abnormal breath sounds; Translations: [Other abnormalities of breathing] 10-30-2020 Episodic Other screening for suspected conditions (not mental disorders or infectious disease) (4 sources) Imaging of thorax abnormal; Translations: [Abnormal findings on diagnostic imaging of other specified body structures] 10-31-2020 Chronic Other screening for suspected conditions (not mental disorders or infectious disease) (3 sources) Patient encounter status; Translations: [Encounter for screening mammogram for malignant neoplasm of breast] Episodic Other skin disorders (8 sources) Eruption; Translations: [Rash and other nonspecific skin eruption] 11-26-2021 Episodic Other skin disorders (3 sources) Rash and other nonspecific skin eruption; Translations: [Rash and other nonspecific skin eruption] Onset: 09-19-2024 Episodic Skin and subcutaneous tissue infections (5 sources) Cellulitis of skin; Translations: [Cellulitis, unspecified] Onset: 09-19-2024 09-19-2024 Episodic Results Test Name Value Interpretation Reference Range Facility CBC W/Diff, Automatedon 09-12 Absolute Lymph 2.44 X10 3/uL Normal 0.83-4.51 [facility] Comment on above: Performed By: #### L 501.3620, L501.6710, L501.9520, L500.4100, L500.4050, L100.0100, L101.9900 #### [facility] [address] [place], [address] Absolute Neut 6.3 X10 3/uL Normal 2.0-7.7 [facility] Comment on above: Performed By: #### L [id number], L501.6710, L501.9520, L500.4100, L500.4050, L100.0100, L101.9900 #### [facility] [address] [place], [address] Basophils/100 WBC (Bld) 0.2 % Normal 0-1 [facility] Comment on above: Performed By: #### L 501.3620, L501.6710, L501.9520, L500.4100, L500.4050, L100.0100, L101.9900 #### [facility] [address] [place], [address] Eosinophils/100 WBC (Bld) 0.7 % Normal 0-5 [facility] Comment on above: Performed By: #### L 501.3620, L501.6710, L501.9520, L500.4100, L500.4050, L100.0100, L101.9900 #### [facility] [address] [place], [address] Erythrocyte distribution width (RBC) [Ratio] 12.6 % Normal 11.6-14.6 [facility] Comment on above: Performed By: #### L 501.3620, L501.6710, L501.9520, L500.4100, L500.4050, L100.0100, L101.9900 #### [facility] [address] [place], [address] Hematocrit (Bld) [Volume fraction] 44.9 % Normal 37-47 [facility] Comment on above: Performed By: #### L 501.3620, L501.6710, L501.9520, L500.4100, L500.4050, L100.0100, L101.9900 #### [facility] [address] [place], [address] Hemoglobin (Bld) [Mass/Vol] 15.4 g/dL High 12.0-15.0 [facility] Comment on above: Performed By: #### L 501.3620, L501.6710, L501.9520, L500.4100, L500.4050, L100.0100, L101.9900 #### [facility] [address] [place], [address] IG% 0.300 Normal 0.0-0.9 [facility] Comment on above: Result Comment: IG% - Immature Granulocytes (promyelocytes, myelocytes and metamyelocytes) > 1% indicates that a LEFT SHIFT is Present. Performed By: #### L 501.3620, L501.6710, L501.9520, L500.4100, L500.4050, L100.0100, L101.9900 #### [facility] [address] [facility] [place], [address] Lymphocytes/100 WBC (Bld) 26.0 % Normal 19-41 [facility] Comment on above: Performed By: #### L 501.3620, L501.6710, L501.9520, L500.4100, L500.4050, L100.0100, L101.9900 #### [facility] [address] [place], [address] MCH (RBC) [Entitic mass] 29.0 pg Normal 27.0-32.0 [facility] Comment on above: Performed By: #### L 501.3620, L501.6710, L501.9520, L500.4100, L500.4050, L100.0100, L101.9900 #### [facility] [address] [place], [address] MCHC (RBC) [Mass/Vol] 34.3 g/dL Normal 32-36 [facility] Comment on above: Performed By: #### L 501.3620, L501.6710, L501.9520, L500.4100, L500.4050, L100.0100, L101.9900 #### [facility] [address] [place], [address] MCV (RBC) [Entitic vol] 84.6 fL Normal 81-99 [facility] Comment on above: Performed By: #### L 501.3620, L501.6710, L501.9520, L500.4100, L500.4050, L100.0100, L101.9900 #### [facility] [address] [place], [address] Monocytes/100 WBC (Bld) 6.0 % Normal 0-10 [facility] Comment on above: Performed By: #### L 501.3620, L501.6710, L501.9520, L500.4100, L500.4050, L100.0100, L101.9900 #### [facility] [address] [place], [address] Neutrophils/100 WBC (Bld) 66.8 % Normal 47-70 [facility] Comment on above: Performed By: #### L 501.3620, L501.6710, L501.9520, L500.4100, L500.4050, L100.0100, L101.9900 #### [facility] [address] [place], [address] Nucleated RBC (Bld) [#/Vol] 0 10*3/uL Normal 0-5 [facility] Comment on above: Performed By: #### L 501.3620, L501.6710, L501.9520, L500.4100, L500.4050, L100.0100, L101.9900 #### [facility] [address] [place], [address] Platelet mean volume (Bld) [Entitic vol] 9.9 fL Normal 6.2-12.0 [facility] Comment on above: Performed By: #### L 501.3620, L501.6710, L501.9520, L500.4100, L500.4050, L100.0100, L101.9900 #### [facility] [address] [place], [address] Platelets (Bld) [#/Vol] 325 10*3/uL Normal 150-450 [facility] Comment on above: Performed By: #### L 501.3620, L501.6710, L501.9520, L500.4100, L500.4050, L100.0100, L101.9900 #### [facility] [address] [place], [address] RBC (Bld) [#/Vol] 5.31 10*6/uL Normal 4.2-5.4 [facility] Comment on above: Performed By: #### L 501.3620, L501.6710, L501.9520, L500.4100, L500.4050, L100.0100, L101.9900 #### [facility] [address] [place], [address] RDW SD 38.7 fl Normal 35.1-43.9 [facility] Comment on above: Performed By: #### L 501.3620, L501.6710, L501.9520, L500.4100, L500.4050, L100.0100, L101.9900 #### [facility] [address] [place], [address] WBC (Bld) [#/Vol] 9.4 10*3/uL Normal 4.4-11.0 [facility] Comment on above: Performed By: #### L 501.3620, L501.6710, L501.9520, L500.4100, L500.4050, L100.0100, L101.9900 #### [facility] [address] [place], [address] CPK Total, Creatine Kinaseon 09-27-2024 CPK TOTAL 55 U/L Normal 24-195 [facility] Comment on above: Performed By: #### L 501.3620, L501.6710, L501.9520, L500.4100, L500.4050, L100.0100, L101.9900 #### [facility] [address] [place], [address] CRPon 09-27-2024 C-REACTIVE PROT 18.50 mg/L High 0.0-3.0 [facility] Comment on above: Performed By: #### L 501.3620, L501.6710, L501.9520, L500.4100, L500.4050, L100.0100, L101.9900 #### [facility] [address] [place], [place], [id number] Comprehensive Metabolic Prof ilon 09-27-2024 Albumin [Mass/Vol] 4.6 g/dL Normal 3.4-4.8 [facility] Comment on above: Performed By: #### L 501.3620, L501.6710, L501.9520, L500.4100, L500.4050, L100.0100, L101.9900 #### [facility] [address] [place], [address] Albumin/Globulin [Mass ratio] 1.4 {ratio} Normal 0.9-2.4 [facility] Comment on above: Performed By: #### L 501.3620, L501.6710, L501.9520, L500.4100, L500.4050, L100.0100, L101.9900 #### [facility] [address] [place], [address] ALK PHOS 132 U/L High 35-104 [facility] Comment on above: Performed By: #### L 501.3620, L501.6710, L501.9520, L500.4100, L500.4050, L100.0100, L101.9900 #### [facility] [address] [place], [address] ALT [Catalytic activity/Vol] 16 U/L Normal <=34 [facility] Comment on above: Performed By: #### L 501.3620, L501.6710, L501.9520, L500.4100, L500.4050, L100.0100, L101.9900 #### [facility] [address] [place], [address] AST [Catalytic activity/Vol] 17 U/L Normal <=31 [facility] Comment on above: Performed By: #### L 501.3620, L501.6710, L501.9520, L500.4100, L500.4050, L100.0100, L101.9900 #### [facility] [address] [place], [address] Bilirubin [Mass/Vol] 0.60 mg/dL Normal 0.00-1.30 [facility] Comment on above: Performed By: #### L 501.3620, L501.6710, L501.9520, L500.4100, L500.4050, L100.0100, L101.9900 #### [facility] [address] [place], [address] BUN/CRE 25.4 RATIO High 10-20 [facility] Comment on above: Performed By: #### L 501.3620, L501.6710, L501.9520, L500.4100, L500.4050, L100.0100, L101.9900 #### [facility] [address] [place], [address] Calcium [Mass/Vol] 9.7 mg/dL Normal 7.6-11.0 [facility] Comment on above: Performed By: #### L 501.3620, L501.6710, L501.9520, L500.4100, L500.4050, L100.0100, L101.9900 #### [facility] [address] [place], [address] Chloride [Moles/Vol] 99 mmol/L Normal 98-108 [facility] Comment on above: Performed By: #### L 501.3620, L501.6710, L501.9520, L500.4100, L500.4050, L100.0100, L101.9900 #### [facility] [address] [place], [address] CO2 [Moles/Vol] 22.9 mmol/L Normal 21.0-32.0 [facility] Comment on above: Performed By: #### L 501.3620, L501.6710, L501.9520, L500.4100, L500.4050, L100.0100, L101.9900 #### [facility] [address] [place], [address] Creatinine [Mass/Vol] 0.83 mg/dL Normal 0.70-1.20 [facility] Comment on above: Performed By: #### L 501.3620, L501.6710, L501.9520, L500.4100, L500.4050, L100.0100, L101.9900 #### [facility] [address] [place], [address] GAP 15 Normal 5-15 [facility] Comment on above: Performed By: #### L 501.3620, L501.6710, L501.9520, L500.4100, L500.4050, L100.0100, L101.9900 #### [facility] [address] [place], [address] GFR/1.73 sq M.predicted among non-blacks MDRD (S/P/Bld) [Vol rate/Area] 79 mL/min/{1.73_m2} Normal >60 [facility] Comment on above: Result Comment: mL/m in/1.73m2 CKD-EPI Creatinine Equation (2020) Performed By: #### L 501.3620, L501.6710, L501.9520, L500.4100, L500.4050, L100.0100, L101.9900 #### [facility] [address] [place], [address] Globulin (S) [Mass/Vol] 3.3 g/dL Normal 2.2-4.2 [facility] Comment on above: Performed By: #### L 501.3620, L501.6710, L501.9520, L500.4100, L500.4050, L100.0100, L101.9900 #### [facility] [address] [place], [address] Glucose [Mass/Vol] 102 mg/dL High 70-99 [facility] Comment on above: Performed By: #### L 501.3620, L501.6710, L501.9520, L500.4100, L500.4050, L100.0100, L101.9900 #### [facility] [address] [place], [address] Potassium [Moles/Vol] 3.5 mmol/L Normal 3.3-5.1 [facility] Comment on above: Performed By: #### L 501.3620, L501.6710, L501.9520, L500.4100, L500.4050, L100.0100, L101.9900 #### [facility] [address] [place], [address] Sodium [Moles/Vol] 136 mmol/L Normal 133-145 [facility] Comment on above: Performed By: #### L 501.3620, L501.6710, L501.9520, L500.4100, L500.4050, L100.0100, L101.9900 #### [facility] [address] [place], [address] T PROT 7.9 g/dL Normal 5.9-8.4 [facility] Comment on above: Performed By: #### L 501.3620, L501.6710, L501.9520, L500.4100, L500.4050, L100.0100, L101.9900 #### [facility] [address] [place], [address] Urea nitrogen [Mass/Vol] 21 mg/dL High 4-19 [facility] Comment on above: Performed By: #### L 501.3620, L501.6710, L501.9520, L500.4100, L500.4050, L100.0100, L101.9900 #### [facility] [address] [place], [address] Erythrocyte Sed Rateon 09-27 SED RATE 14 mm/hr Normal 0-30 [facility] Comment on above: Performed By: #### L 501.3620, L501.6710, L501.9520, L500.4100, L500.4050, L100.0100, L101.9900 #### [facility] [address] [place], [address] Lipid Profileon 09-27-2024 CHOL:HDL 4.94 Normal [facility] Comment on above: Performed By: #### L 501.3620, L501.6710, L501.9520, L500.4100, L500.4050, L100.0100, L101.9900 #### [facility] [address] [place], [address] Cholesterol [Mass/Vol] 200 mg/dL Normal <=200 [facility] Comment on above: Result Comment: Chol esterol level, Desirable <200 mg/dL Borderline high cholesterol 200-239 mg/dL High cholesterol >=240 mg/dL Recommendations of the NCEP Adult Treatment Panel for the following risk-cutoff thresholds for the [place] population. Performed By: #### L 501.3620, L501.6710, L501.9520, L500.4100, L500.4050, L100.0100, L101.9900 #### [facility] [address] [place], [address] Cholesterol in HDL [Mass/Vol] 41 mg/dL Normal [facility] Comment on above: Result Comment: [place] onal Cholesterol Education Program (NCEP) guidelines: <40 mg/dL: Low HDL-cholesterol (major risk factor for CHD) >= 60 mg/dL: High HDL-cholesterol (negative risk factor for CHD) HDL-cholesterol is affected by a number of factors, e.g. smoking, exercise, hormones, sex and age. Performed By: #### L 501.3620, L501.6710, L501.9520, L500.4100, L500.4050, L100.0100, L101.9900 #### [facility] [address] [place], [address] Cholesterol in LDL [Mass/Vol] 134 mg/dL Normal [facility] Comment on above: Result Comment: Bord grssth=332-195 mg/dL Higher Ezfq=461 mg/dL or greater Performed By: #### L 501.3620, L501.6710, L501.9520, L500.4100, L500.4050, L100.0100, L101.9900 #### [facility] [address] [place], [address] Cholesterol in VLDL [Mass/Vol] 25 mg/dL Normal 5-40 [facility] Comment on above: Performed By: #### L 501.3620, L501.6710, L501.9520, L500.4100, L500.4050, L100.0100, L101.9900 #### [facility] [address] [place], [address] Triglyceride [Mass/Vol] 126 mg/dL Normal [facility] Comment on above: Result Comment: The drugs N-Acetylcysteine and Metamizole may falsely depress this assay. Normal range: <150 mg/dL Borderline High: 150-199 mg/dL High: 200-499 mg/dL Very High: >500 mg/dL Performed By: #### L 501.3620, L501.6710, L501.9520, L500.4100, L500.4050, L100.0100, L101.9900 #### [facility] [address] [place], [address] MR/BMS.Bon 09-27-2024 MR/BMS.[facility] [address] [facility] [address] [place] [address] OFFICE VISIT Date of Service: 09/27/24 MR#: [id number] Acct: [id number] Name: JENNY CHAVARRIA Rep #: [id number] : 1960 Provider: Dr. Sb vargas MD Age/Sex: 64/F Location: [facility] Status: Signed Intake Vital Signs 09/24/24 05:09 09/27/24 11:35 Height 5 ft 10 in 5 ft 10 in Weight: 179 lb BMI 25.7 BP 119/86 H Blood Pressure Location Lt brachial Position Sitting Respiration 16 Pulse 104 H Pulse Source Monitor Temp 97.8 F Temp Source Temporal Pulse Oximetry (%) 96 Oxygen Delivery Method room air Intake Visit Reasons: Annual/Physical Chief Complaint: no acute concerns Durability Technician Required: No Accompanied by: Self Is patient in pain?: Yes (Left thigh) Pain scale (1-10): 3 Allergies No Known Allergies Allergy (Verified 09/27/24 11:28) Medications ???Medication ???Instructions ???Recorded ???Confirmed ???Type acyclovir 5 % topical ointment 1 applic topical .twice daily 5 09/27/24 Rx days #15 grams escitalopram oxalate 10 mg tablet 10 mg PO DAILY #90 tabs 03/24/24 09/27/24 Rx doxycycline hyclate 100 mg tablet 100 mg PO BID #20 tabs 09/27/24 0 09/27/24 Rx sulfamethoxazole 800 1 tab PO Q12H #10 tabs 09/27/24 Rx mg-trimethoprim 160 mg tablet (Bactrim DS) Have you fallen in the past year?: No PFSH Medical History (Updated 09/27/24 @ 12:[address] Sb Ann MD) Cellulitis Elevated low density lipoprotein (LDL) cholesterol level Family History Father Cancer Hypertension Mother Hypertension Social History Smoking Status: Never smoker alcohol intake: current alcohol intake frequency: holidays/special occasions only substance use type: does not use what type of physical activity do you participate in: walking and aerobics frequency: daily HPI HPI Chief Complaint: no acute concerns Details: JENNY CHAVARRIA, is a 64 F who presents to the office today for annual follow-up. She actually has not been seen since 2021 for a wellness visit. Generally speaking since last seen, she has been doing well. She has not had any longstanding medical problems takes no routine long-term medications per se aside from low-dose Lexapro. However from an acute standpoint, she notes that about 4 weeks ago, she had what appeared to be a insect bite on the distal posterior right thigh behind the knee. She states that day, she was at a outdoor event, and when she got into the car and started driving she felt a stinging like sensation behind the right knee. When she got home, and took off clothing, she noted red area, and then blotchiness around the distal yue and anterior lateral as well as medial thigh as well as behind the knee. She did go to urgent care where she had evaluation. It was unclear to me exactly what took place as I am not provided those notes but she states that she ultimately was given a prescription for a steroid which by description would be likely a Medrol Dosepak. It was clearly not given antibiotic she states. In any event she had a lot of discomfort with this, particularly at nighttime when she was trying to sleep. She was up pacing quite a bit but also again as we discussed that may have been related more to the steroid. In any event, she has had persistent redness throughout the thigh, and skin sensitivity as well as tenderness in certain locations. This extends now up to the groin area, into the upper buttock area on the left. She notes a odd feeling/sensitivity when she wears tight clothing around the waist area. On September 24, 3 days ago, she presented to the [facility] emergency room with lower abdominal pressure, concern for UTI, as well as noting the recent insect bite. Her urinalysis at that time was negative for UTI however there was a trace of blood on it. No RBCs on microscopic. CT scan was obtained for concern of possible kidney stone. Did not show any significant bothersome acute findings, small inguinal fat-containing hernia. She has never completely improved from that standpoint she states but again now has increased redness, swelling of the thigh area to include the anterior anterior lateral, medial into the posterior buttock. She has not had denia groin pain. Has not had fever or chills. No shortness of breath, tachypnea. No nausea or vomiting. Appetite has been okay. Last labs were in 2021. She has had elevated LDL with a total LDL of 124. Total cholesterol last in 2021 was 206. Triglycerides were unremarkable. HDL was 58. At that point, WBC count, hemoglobin, blood counts, electrolytes, kidney and liver function as well as thyroid function were otherwise unremarkable. (more content not included)... Normal [facility] Thyroid Stim Hormone (TSH)on 09-27-2024 TSH 1.030 uIU/mL Normal 0.300-4.200 [facility] Comment on above: Performed By: #### L 501.3620, L501.6710, L501.9520, L500.4100, L500.4050, L100.0100, L101.9900 ####[facility] [address] [place], [place], [id number] Abdomen/Pelvis without Conto n 09-24-2024 Abdomen/Pelvis without Cont [facility] Imaging Services [address] [place], [place] [id number] ([phone] Abdomen/Pelvis without Cont MR#: [id number] Acct: [id number] Name: JENNY CHAVARRIA Rep #: [id number] : 1960 F 64 From: Sybil Kelly nd, MD PCP: Dr. Sb Ann MD Status: REG ER Study: Abdomen/Pelvis without Cont Date of Exam: 09/12 06/06 Exam# [id number] Ordering Dr: Alphonse Lowry DO PROCEDURE: ABDOMEN/PELVIS WITHOUT CONT 09/24/2024 REASON FOR EXAM: PAIN TECHNIQUE: ABDOMEN/PELVIS WITHOUT CONT Noncontrast technique limits evaluation of the abdominal and pelvic viscera. Coronal and Sagittal reconstruction series were provided. One or more dose reduction techniques were used (e.g., Automated exposure control, adjustment of the mA and/or kV according to patient size, use of iterative reconstruction technique). RADIATION DOSE SUMMARY: DLP: 400 mGycm COMPARISON: None. FINDINGS: Lung bases: Unremarkable. Liver: The liver is normal in size with hepatic dome hypodensity, incompletely evaluated. No biliary ductal dilation. Gallbladder: No radiopaque stones within the gallbladder. Spleen: Normal in size. Pancreas: The unopacified pancreas is unremarkable. Adrenals: No adrenal mass. Kidneys: No hydronephrosis or nephrolithiasis. Bladder: Mildly distended and unremarkable. Reproductive Organs: Normal uterine size and contour. Ovaries are unremarkable. Bowel: The bowel loops are nondilated. No ascites or pneumoperitoneum. Normal appendix. Lymph nodes: Visualization is limited without the use of IV contrast. No large lymphadenopathy. Vasculature: Moderate calcific plaque of the aortoiliac vessels. Bones: Thoracolumbar spondylosis. Small fat containing right inguinal hernia. CT/Abdomen/Pelvis without Cont IMPRESSION: No acute abdominopelvic finding. Reading Location: [facility] CC: Dr. Alphonse Lowry DO; Dr. Sb Ann MD Thermoscrew Operator: Signed Normal [facility] Absolute lymphocyte countOrd ered By: Alphonse Lowry on 09-24-2024 Lymphocytes Auto (Unsp spec) [#/Vol] 1.62 10*3/uL 0.83-4.51 [facility] Absolute neutrophil countOrd ered By: Alphonse Lowry on 09-24-2024 Neutrophils (Bld) [#/Vol] 6.0 10*3/uL 2.0-7.7 [facility] Anion gap in Serum or Plasma Ordered By: Alphonsevilma Lowry on 09-24-2024 Anion gap [Moles/Vol] 15 mmol/L - [facility] Automated lymphocyte count a s percentage of total leukocytesOrdered By: Alphonsevilma Lowry on 09-24-2024 Lymphocytes/100 WBC Auto (Unsp spec) 19.7 % [facility] BUN/creatinine ratioOrdered By: [facility] HamiltonbrownSherinKhanh on 09-24-2024 Urea nitrogen/Creatinine [Mass ratio] 18.7 mg/mg - [facility] Basic Metabolic Profile (BMP )on 09-24-2024 BUN/CRE 18.7 RATIO Normal - [facility] Comment on above: Performed By: #### L 500.2500, L100.0100 ####[facility] [address] [place], [address] Calcium [Mass/Vol] 9.1 mg/dL Normal 7.6-11.0 [facility] Comment on above: Performed By: #### L 500.2500, L100.0100 ####[facility] [address] [place], [address] Chloride [Moles/Vol] 103 mmol/L Normal 98-108 [facility] Comment on above: Performed By: #### L 500.2500, L100.0100 ####[facility] [address] [place], [address] CO2 [Moles/Vol] 16.9 mmol/L Low 21.0-32.0 [facility] Comment on above: Performed By: #### L 500.2500, L100.0100 ####[facility] [address] [place], [address] Creatinine [Mass/Vol] 0.78 mg/dL Normal 0.70-1.20 [facility] Comment on above: Performed By: #### L 500.2500, L100.0100 ####[facility] [address] [place], [address] ECRCL 75.81 ml/min Normal 50-250 [facility] Comment on above: Performed By: #### L 500.2500, L100.0100 ####[facility] [address] [place], [address] GAP 15 Normal 5-15 [facility] Comment on above: Performed By: #### L 500.2500, L100.0100 ####[facility] [address] [place], [address] GFR/1.73 sq M.predicted among non-blacks MDRD (S/P/Bld) [Vol rate/Area] 84 mL/min/{1.73_m2} Normal >60 [facility] Comment on above: Result Comment: mL/m in/1.73m2 CKD-EPI Creatinine Equation (2020) Performed By: #### L 500.2500, L100.0100 ####[facility] [address] [place], [address] Glucose [Mass/Vol] 104 mg/dL High 70-99 [facility] Comment on above: Performed By: #### L 500.2500, L100.0100 ####[facility] [address] [place], [address] Potassium [Moles/Vol] 4.2 mmol/L Normal 3.3-5.1 [facility] Comment on above: Result Comment: Hemo lysis present, Results??could be affected. ?? Performed By: #### L 500.2500, L100.0100 ####[facility] [address] [place], [address] Sodium [Moles/Vol] 134 mmol/L Normal 133-145 [facility] Comment on above: Performed By: #### L 500.2500, L100.0100 ####[facility] [address] [place], [address] Urea nitrogen [Mass/Vol] 15 mg/dL Normal 4-19 [facility] Comment on above: Performed By: #### L 500.2500, L100.0100 ####[facility] [address] [place], [address] Basophil percentageOrdered B y: Alphonse Lowry on 09-24-2024 Basophils/100 WBC (Bld) 0.2 % 0-1 [facility] Bilirubin Test strip Ql (U)O rdered By: Alphonse Lowry on 09-24-2024 Bilirubin Ql (U) Negative Negative [facility] CBC W/Diff, Automatedon 09-12-2024 Absolute Lymph 1.62 X10 3/uL Normal 0.83-4.51 [facility] Comment on above: Performed By: #### L 500.2500, L100.0100 ####[facility] [address] [place], [address] Absolute Neut 6.0 X10 3/uL Normal 2.0-7.7 [facility] Comment on above: Performed By: #### L 500.2500, L100.0100 ####[facility] [address] [place], [address] Basophils/100 WBC (Bld) 0.2 % Normal 0-1 [facility] Comment on above: Performed By: #### L 500.2500, L100.0100 ####[facility] [address] [place], [address] Eosinophils/100 WBC (Bld) 0.7 % Normal 0-5 [facility] Comment on above: Performed By: #### L 500.2500, L100.0100 ####[facility] [address] [place], [address] Erythrocyte distribution width (RBC) [Ratio] 12.8 % Normal 11.6-14.6 [facility] Comment on above: Performed By: #### L 500.2500, L100.0100 ####[facility] [address] [place], [address] Hematocrit (Bld) [Volume fraction] 42.3 % Normal 37-47 [facility] Comment on above: Performed By: #### L 500.2500, L100.0100 ####[facility] [address] [place], [address] Hemoglobin (Bld) [Mass/Vol] 14.1 g/dL Normal 12.0-15.0 [facility] Comment on above: Performed By: #### L 500.2500, L100.0100 ####[facility] [address] [place], [address] IG% 0.100 Normal 0.0-0.9 [facility] Comment on above: Result Comment: IG% - Immature Granulocytes (promyelocytes, myelocytes and metamyelocytes) > 1% indicates that a LEFT SHIFT is Present. Performed By: #### L 500.2500, L100.0100 ####[facility] [address] [place], [address] Lymphocytes/100 WBC (Bld) 19.7 % Normal 19-41 [facility] Comment on above: Performed By: #### L 500.2500, L100.0100 ####[facility] [address] [place], [address] MCH (RBC) [Entitic mass] 29.4 pg Normal 27.0-32.0 [facility] Comment on above: Performed By: #### L 500.2500, L100.0100 ####[facility] [address] [place], [address] MCHC (RBC) [Mass/Vol] 33.3 g/dL Normal 32-36 [facility] Comment on above: Performed By: #### L 500.2500, L100.0100 ####[facility] [address] [place], [address] MCV (RBC) [Entitic vol] 88.3 fL Normal 81-99 [facility] Comment on above: Performed By: #### L 500.2500, L100.0100 ####[facility] [address] [place], [address] Monocytes/100 WBC (Bld) 5.6 % Normal 0-10 [facility] Comment on above: Performed By: #### L 500.2500, L100.0100 ####[facility] [address] [place], [address] Neutrophils/100 WBC (Bld) 73.7 % High 47-70 [facility] Comment on above: Performed By: #### L 500.2500, L100.0100 ####[facility] [address] [place], [address] Nucleated RBC (Bld) [#/Vol] 0 10*3/uL Normal 0-5 [facility] Comment on above: Performed By: #### L 500.2500, L100.0100 ####[facility] [address] [place], [address] Platelet mean volume (Bld) [Entitic vol] 10.3 fL Normal 6.2-12.0 [facility] Comment on above: Performed By: #### L 500.2500, L100.0100 ####[facility] [address] [place], [address] Platelets (Bld) [#/Vol] 300 10*3/uL Normal 150-450 [facility] Comment on above: Performed By: #### L 500.2500, L100.0100 ####[facility] [address] [place], [address] RBC (Bld) [#/Vol] 4.79 10*6/uL Normal 4.2-5.4 [facility] Comment on above: Performed By: #### L 500.2500, L100.0100 ####[facility] [address] [place], [address] RDW SD 41.3 fl Normal 35.1-43.9 [facility] Comment on above: Performed By: #### L 500.2500, L100.0100 ####[facility] [address] [place], [address] WBC (Bld) [#/Vol] 8.2 10*3/uL Normal 4.4-11.0 [facility] Comment on above: Performed By: #### L 500.2500, L100.0100 ####[facility] [address] [place], [address] Carbon dioxide, total [Moles /volume] in Central venous bloodOrdered By: Alphonse Lowry on 09-24-2024 CO2 [Moles/Vol] 16.9 mmol/L Low 21.0-32.0 [facility] Chloride assayOrdered By: Joo Lowry on 09-24-2024 Chloride [Moles/Vol] 103 mmol/L 98-108 [facility] Emergency Department Summary on 09-24-2024 Emergency Department Summary [facility] Medical Records Department [address] [place] [address] Emergency Department Summary 09/24/24 MR#: [id number] Acct: [id number] Name: JENNY CHAVARRIA Rep #: [id number] : 1960 64 From: Alphonse Lowry DO PCP: Dr. Sb Ann MD Status:REG ER Location: ED HPI HPI - Female History of Present Illness Chief Complaint: Complaint Narrative Narrative: Chief complaint and HPI: Dysuria and suprapubic pressure. 64-year-old female presents for evaluation of dysuria and suprapubic pressure. Onset this morning. Patient states 3 weeks ago she was bit by a possible spider on the back of her left leg. She developed pain and swelling in the leg. She was seen by urgent care. Placed on antibiotics and had a DVT study that was performed which was negative. Patient states she thinks her symptoms today are related to a UTI however she does not know if it is related to the spider bite which is why she presents. She denies any fever, chills, shortness of breath, chest pain, nausea, vomiting. Review of systems: See HPI Medications: As listed on the chart Allergies: As listed on the chart PFSH: Per chart Vital signs: As listed on the chart. Reviewed. Physical exam: Gen: A O x3, NAD Head: Normocephalic, atraumatic Eyes: No sclera icterus, conjunctiva clear ENT: Moist mucous membranes Neck: Trachea midline, No JVD CV: RRR, no murmurs, no peripheral edema Resp: Lungs CTA BL, no w/r/c GI: Abd soft, non-distended, non-tender, no r/r/g : No CVA tenderness Musc: Full ROM, no deformity, femoral/DP/PT pulses +2 bilaterally, left lower extremity is without swelling or rash, no spider bite or rash present, compartments soft Skin: Warm, dry Neuro: Alert, oriented, grossly intact, sensation intact Psych: Cooperative, appropriate mood and [facility] Elevated low density lipoprotein (LDL) cholesterol level Home Medications ???Medication ???Instructions ???Recorded ???Last Taken ???Type acyclovir 5 % topical ointment 1 applic topical .twice daily 5 Unknown Rx days #15 grams escitalopram oxalate 10 mg tablet 10 mg PO DAILY #90 tabs 03/24/24 Unknown Rx Allergy/AdvReac Type Severity Reaction Status Date / Time No Known Allergies Allergy Verified 09/24/24 05:09 Family History Father Cancer Hypertension Mother Hypertension Social History Smoking Status: Never smoker alcohol intake: current alcohol intake frequency: holidays/special occasions only substance use type: does not use what type of physical activity do you participate in: walking and aerobics frequency: daily EXAM Physical Exam Const Vital Signs: 09/24/24 05:09 09/24/24 07:08 Temperature 98.9 F 98.4 F Temperature Source Oral Oral Pulse Rate 82 65 Respiratory Rate 18 15 Blood Pressure 132/78 H 135/79 H Blood Pressure Mean 96 97 Pulse Ox 97 97 Oxygen Delivery Method Room Air Room Air MDM MDM MDM Narrative Medical decision making narrative: 64-year-old female presents for evaluation of dysuria and suprapubic pressure. Onset this morning. Patient states 3 weeks ago she was bit by a possible spider on the back of her left leg. Was seen in urgent care. Had a duplex ultrasound that was negative for DVT but there was concern for infection so she was placed on antibiotics. Symptoms have since resolved. Patient was concerned that her symptoms today may be related to the spider bite. Given that patient's previous spider bite symptoms have improved/resolved, I do not think the 2 are related. Her vitals are stable. Physical exam is unremarkable. Concern is for UTI. UA ordered. UA negative for UTI however positive for blood. Patient's pain may be secondary to urolithiasis. Will add on basic labs and CT abdomen pelvis without contrast. She confirmed understanding of the plan. CBC unremarkable. BMP without RUSS. CT abdomen pelvis without any acute intra-abdominal process. At this point in time, no clear etiology for patient's symptoms. She needs to follow-up with her primary care physician. She is updated all the results and confirmed understand the plan. Patient stable to discharge home. Return precautions explained. Impression: 1. Abdominal pain 2. Dysuria Lab Data Labs: Laboratory Results - last 24 hr 09/24/24 09/24/24 05:29 06:09 WBC 8.2 RBC 4.79 Hgb 14.1 Hct 42.3 MCV 88.3 MCH 29.4 MCHC 33.3 RDW Std Deviation 41.3 RDW Coeff of Sanjiv 12.8 Plt Count 300 MPV 10.3 Immature Gran % (Auto) 0.100 Neut % (Auto) 73.7 H Lymph % (Auto) 19.7 [place] % (Auto) 5.6 Eos % (Auto) 0.7 Baso % (Auto) 0. (more content not included)... Normal [facility] Eosinophil percentageOrdered By: Alphonse Lowry on 09-24-2024 Eosinophils/100 WBC (Bld) 0.7 % 0-5 [facility] Erythrocyte distribution wid th ratioOrdered By: Alphonse Alen on 09-24-2024 Erythrocyte distribution width (RBC) [Ratio] 12.8 % 11.6-14.6 [facility] Erythrocyte distribution wid th standard deviationOrdered By: [facility]ons[facility]uel Cassidy on 09-24-2024 Erythrocyte distribution width (RBC) [Ratio] 41.3 fl 35.1-43.9 [facility] Glomerular filtration rate ( GFR) estimation/1.73 sq m using serum, plasma, or whole bOrdered By: Alphonse Lowry on 09-24-2024 GFR/1.73 sq M.predicted among non-blacks MDRD (S/P/Bld) [Vol rate/Area] 84 mL/min/{1.73_m2} >60 [facility] Comment on above: mL/min/1.73m2 CKD-EP I Creatinine Equation (2020) Hematocrit Auto (Bld) [Volum e fraction]Ordered By: Alphonse Lowry on 09-24-2024 Hematocrit (Bld) [Volume fraction] 42.3 % 37-47 [facility] Hemoglobin measurementOrdere d By: Alphonse Lowry on 09-24-2024 Hemoglobin (Bld) [Mass/Vol] 14.1 g/dL 12.0-15.0 [facility] Immature granulocytes/100 WB C Auto (Bld)Ordered By: Alphonse Lowry on 09-24-2024 Immature granulocytes/100 WBC (Bld) 0.100 % 0.0-0.9 [facility] Comment on above: IG% - Immature Granu locytes (promyelocytes, myelocytes and metamyelocytes) > 1% indicates that a LEFT SHIFT is Present. Ketones Test strip Ql (U)Ord ered By: Alphonse Lowry on 09-24-2024 Ketones Ql (U) Negative Negative [facility] MCV (mean corpuscular volume ) determinationOrdered By: Alphonse Lowry on 09-24-2024 MCV (RBC) [Entitic vol] 88.3 fL 81-99 [facility] Mean corpuscular hemoglobin (MCH) determinationOrdered By: Alphonse Lowry on 09-24-2024 MCH (RBC) [Entitic mass] 29.4 pg 27.0-32.0 [facility] Mean corpuscular hemoglobin concentration (MCHC) determinationOrdered By: Alphonse Lowry on 09-24-2024 MCHC (RBC) [Mass/Vol] 33.3 g/dL 32-36 [facility] Mean platelet volume determi nationOrdered By: Alphonse Lowry on 09-24-2024 Platelet mean volume (Bld) [Entitic vol] 10.3 fL 6.2-12.0 [facility] Microscopic analysis of urin e for red blood cells (RBC)Ordered By: Alphonse Lowry on 09-24-2024 Microscopic analysis of urine for red blood cells (RBC) 0 SEEN /hpf 0-5 [facility] Monocyte percentageOrdered B y: Alphonse Lowry on 09-24-2024 Monocytes/100 WBC (Bld) 5.6 % 0-10 [facility] Mucus LM Ql (Urine sed)Order ed By: Alphonse Lowry on 09-24-2024 Mucus Ql (Urine sed) 0 SEEN /hpf [facility] Neutrophil percentageOrdered By: Alphonse Lowry on 09-24-2024 Neutrophils/100 WBC (Bld) 73.7 % High 47-70 [facility] Nitrite Test strip Ql (U)Ord ered By: Alphonse Lowry on 09-24-2024 Nitrite Ql (U) Negative Negative [facility] Nucleated red blood cell per centageOrdered By: Alphonse Lowry on 09-24-2024 Nucleated RBC/100 WBC (Bld) [Ratio] 0 % 0-5 [facility] Platelet countOrdered By: oJo Lowry on 09-24-2024 Platelets (Bld) [#/Vol] 300 10*3/uL 150-450 [facility] Potassium measurement (mass/ volume)Ordered By: Alphonse Lowry on 09-24-2024 Potassium (Unsp spec) [Mass/Vol] 4.2 mmol/L 3.3-5.1 [facility] Comment on above: Hemolysis present, R esults could be affected. Protein Test strip Ql (U)Ord ered By: Alphonse Lowry on 09-24-2024 Protein Ql (U) 30 mg/dl High Negative [facility] RBC Auto (Bld) [#/Vol]Ordere d By: Alphonse Lowry on 09-24-2024 RBC (Bld) [#/Vol] 4.79 10*6/uL 4.2-5.4 [facility] Serum creatinine measurement (mass/volume)Ordered By: Alphonse Lowry on 09-24-2024 Creatinine [Mass/Vol] 0.78 mg/dL 0.70-1.20 [facility] Serum glucose measurement (m ass/volume)Ordered By: Alphonse Lowry on 09-24-2024 Glucose [Mass/Vol] 104 mg/dL High 70-99 [facility] Serum or plasma calcium michael urement (mass/volume)Ordered By: Alphonse Cassidy on 09-24-2024 Calcium [Mass/Vol] 9.1 mg/dL 7.6-11.0 [facility] Serum or plasma urea nitroge n measurement (mass/volume)Ordered By: Alphonse Lowry on 09-24-2024 Urea nitrogen [Mass/Vol] 15 mg/dL 4-19 [facility] Sodium levelOrdered By: Regan Lowry on 09-24-2024 Sodium [Moles/Vol] 134 mmol/L 133-145 [facility] Squamous epithelial cells de tection in urine sediment by light microscopyOrdered By: Alphonse Lowry on 09-24-2024 Epithelial cells.squamous LM Ql (Urine sed) 0-5 SEEN /hpf 5-10 [facility] Urinalysis, Completeon 09-24 EPI,SQUAMOUS 0-5 SEEN Normal 5-10 [facility] Comment on above: Order Comment: MOISES CTOR TO SPECIFY Performed By: #### L 400.0001 #### [facility] [address] [place], [address] BACTERIA 0 SEEN Normal None Seen [facility] Comment on above: Order Comment: MOISES CTOR TO SPECIFY Performed By: #### L 400.0001 #### [facility] [address] [place], [address] Mucus Ql (Urine sed) 0 SEEN Normal [facility] Comment on above: Order Comment: MOISES CTOR TO SPECIFY Performed By: #### L 400.0001 #### [facility] [address] [place], [address] RBC 0 SEEN Normal 0-5 [facility] Comment on above: Order Comment: MOISES CTOR TO SPECIFY Performed By: #### L 400.0001 #### [facility] [address] [place], [address] WBC 0 SEEN Normal 0-5 [facility] Comment on above: Order Comment: MOISES CTOR TO SPECIFY Performed By: #### L 400.0001 #### [facility] [address] [place], [address] Urine clarityOrdered By: Aristeo Lowry on 09-24-2024 Clarity (U) Clear Clear [facility] Urine color determinationOrd ered By: Alphonse Lowry on 09-24-2024 Color (U) Yellow Yellow [facility] Urine glucose detectionOrder ed By: Alphonse Lowry on 09-24-2024 Glucose Ql (U) Normal mg/dl Normal [facility] Urine leukocyte esterase det ection by dipstickOrdered By: Alphonse Lowry on 09-24-2024 Leukocyte esterase Test strip Ql (U) Negative Negative [facility] Urine pHOrdered By: Alphonse Jose Roberto adamsDari on 09-24-2024 pH (U) 6.5 [pH] 5.0 - 8.0 [facility] Urine sediment bacteria coun t by microscopy (number/high power field)Ordered By: Alphonse Lowry on 09-24-2024 Bacteria LM.HPF (Urine sed) [#/Area] 0 /[HPF] None Seen [facility] Urine specific gravity measu rementOrdered By: [facility]ons[facility]uelKhanh on 09-24-2024 Specific gravity (U) [Rel density] 1.015 1.002-1.030 [facility] Urine urobilinogen measureme ntOrdered By: Alphonse Jose RobertoDat on 09-24-2024 Urobilinogen Ql (U) 1 mg/dl High Normal [facility] White blood cell (WBC) count Ordered By: Alphonse MelloEdu on 09-24-2024 WBC (Bld) [#/Vol] 8.2 10*3/uL 4.4-11.0 [facility] White blood cell countOrdere d By: Alphonsevilma SarkarEdu on 09-24-2024 White blood cell count 0 SEEN /hpf 0-5 [facility] US DVT LOWER LTon 09-21-2024 US DVT LOWER LT * * *Final Report* * * DATE [...] spontaneous respirophasic flow. Normal response to augmentation. IMPRESSION: Negative study for proximal DVT in the left lower extremity. Negative study for calf DVT in the left lower extremity. Negative study for superficial thrombophlebitis in the imaged segments of the left lower extremity. Thermoscrew Operator: JOHANNA Transcribe Date/Time: Sep 21 2024 8:13A Dictated by : TOMMIE CLARK MD This examination was interpreted and the report reviewed and electronically signed by: TOMMIE CLARK MD on Sep 21 2024 8:14AM EST [id number] Normal [facility] US Lower extremity vein - [place] 09-21-2024 IMPRESSION: Negative study for proximal DVT in the left lower extremity. Negative study for calf DVT in the left lower extremity. Negative study for superficial thrombophlebitis in the imaged segments of the left lower extremity. Thermoscrew Operator: [facility] Transcribe Date/Time: Sep 21 2024 8:13A Dictated by : TOMMIE LCARK MD This examination was interpreted and the report reviewed and electronically signed by: TOMMIE CLARK MD on Sep 21 2024 8:14AM EST [employer] [facility] SYN[facility] * * *Final Report* * * DATE [...] spontaneous respirophasic flow. Normal response to augmentation. [facility] Provider, [facility] - 09/21/2024 * * *Final Report* * [...] imaged segments of the left lower extremity. Thermoscrew Operator: PSCB Transcribe Date/Time: Sep 21 2024 8:13A Dictated by : TOMMIE CLARK MD This examination was interpreted and the report reviewed and electronically signed by: TOMMIE CLARK MD on Sep 21 2024 8:14AM EST [facility] Radiology Study observation (narrative) [facility] US Lower extremity vein - le ftOrdered By: Ccf Provider on 09-21-2024 [facility] CNOVon 09-19-2024 CNOV Office Visit (WOUCA) JENNY CHAVARRIA ([id number]) 1960 F Date Time Provider Department 09/19/24 [...] lower extremity [M79.605] Order(s):US DVT LOWER LEFT [[id number]] Order #: [id number] FUTURE sulfamethoxazole-trime thoprim (BACTRIM DS) 800-160 mg [...] Service: OFFICE/OUTPATIENT NEW MODERATE MDM 45 MINUTES [20473] Encounter Status:Closed by EMILY LIMA on 09/19/24 Normal [facility] Breast Screeningon 2023 [facility] Basophil percentageOrdered B y: Justin Kelly on 04-24-2022 Chloride [Moles/Vol] 109 mmol/L 98-107 [facility] Glucose [Mass/Vol] 89 mg/dL 74-106 [facility] Potassium [Moles/Vol] 3.8 mmol/L 3.5-5.1 [facility] Sodium [Moles/Vol] 141 mmol/L 136-145 [facility] WBC (Bld) [#/Vol] 7.6 10*3/uL 4.4-11.0 [facility] Blood erythrocytes count (nu mber/volume)Ordered By: Justin Kelly on 04-24-2022 RBC (Bld) [#/Vol] 4.75 10*6/uL 4.2-5.4 [facility] Blood hemoglobin measurement (mass/volume)Ordered By: Justin Kelly on 04-24-2022 Hemoglobin (Bld) [Mass/Vol] 14.2 g/dL 12.0-15.0 [facility] Blood platelet mean volumeOr dered By: Justin Kelly on 04-24-2022 Platelet mean volume (Bld) [Entitic vol] 10.6 fL 6.2-12.0 [facility] Determination of erythrocyte mean corpuscular volume (MCV)Ordered By: Justin Kelly on 04-24-2022 MCV (RBC) [Entitic vol] 89.9 fL 81-99 [facility] Hematocrit Auto (Bld) [Volum e fraction]Ordered By: Justin Kelly on 04-24-2022 Hematocrit (Bld) [Volume fraction] 42.7 % 37-47 [facility] Laboratory - Chemistry and C hemistry - challengeOrdered By: Justin Kelly on 04-24-2022 CO2 [Moles/Vol] 26.0 mmol/L 21.0-32.0 [facility] Urea nitrogen/Creatinine [Mass ratio] 28.7 mg/mg 10-20 [facility] Laboratory - Hematology and Cell countsOrdered By: Justin Klely on 04-24-2022 Erythrocyte distribution width (RBC) [Entitic vol] 42.4 fL 35.1-43.9 [facility] Erythrocyte distribution width (RBC) [Ratio] 12.7 % 11.6-14.6 [facility] MCH (RBC) [Entitic mass] 29.9 pg 27.0-32.0 [facility] MCHC Auto (RBC) [Mass/Vol]Or dered By: Justin Kelly on 04-24-2022 MCHC (RBC) [Mass/Vol] 33.3 g/dL 32-36 [facility] No Panel InformationOrdered By: Justin Kelly on 04-24-2022 Estimated GFR (MDRD) Amer 98 mL/min >60 [facility] Comment on above: GFR Calc Estimated GFR (MDRD) Non-Af Amer 81 mL/min >60 [facility] Comment on above: Non- GFR Calc Platelets bldOrdered By: Bartolome Kelly on 04-24-2022 Platelets (Bld) [#/Vol] 219 10*3/uL 150-450 [facility] Serum or plasma calcium michael urement (mass/volume)Ordered By: Justin Kelly on 04-24-2022 Calcium [Mass/Vol] 9.1 mg/dL 8.5-10.1 [facility] Serum or plasma creatinine m easurement (mass/volume)Ordered By: Justin Kelly on 04-24-2022 Creatinine [Mass/Vol] 0.77 mg/dL 0.55-1.02 [facility] Comment on above: The validity of the calculated GFR & GFRAA in patients over 70 years has not been determined. Clinical correlation is essential. Serum or plasma urea nitroge n measurement (mass/volume)Ordered By: Justin Kelly on 04-24-2022 Urea nitrogen [Mass/Vol] 22 mg/dL 7-18 [facility] Thin prep Papanicolaou smear with manual screeningOrdered By: Justin Kelly on 04-24-2022 Thin prep Papanicolaou smear with manual screening 6 5-15 [facility] AFSHAN SCREENINGon 04-08-2022 [facility] Vital Signs Date Time Vital Sign Value Performing Clinician Facility 09-27-2024 11:35-0400 Body height 177.[address] Sb Ann MD Work Phone: [facility] 09-27-2024 11:35-0400 Body mass index (BMI) [Ratio] 25.7 kg/m2 Dr. Sb Ann MD Work Phone: [facility] 09-27-2024 11:35-0400 Body temperature 97.8 [degF] Dr. Sb Ann MD Work Phone: [facility] 09-27-2024 11:35-0400 Body weight 81.[address] Sb Ann MD Work Phone: [facility] 09-27-2024 11:35-0400 Diastolic blood pressure 86 mm[Hg] Dr. Sb Ann MD Work Phone: [facility] 09-27-2024 11:35-0400 Heart rate 104 /min Dr. Sb Ann MD Work Phone: [facility] 09-27-2024 11:35-0400 Respiratory rate 16 /min Dr. Sb Ann MD Work Phone: [facility] 09-27-2024 11:35-0400 SaO2% (BldA) [Mass fraction] 96 % Dr. Sb Ann MD Work Phone: [facility] 09-27-2024 11:35-0400 Systolic blood pressure 119 mm[Hg] Dr. Sb Ann MD Work Phone: [facility] 09-24-2024 07:57-0400 Body temperature 98.7 [degF] Dr. Sb Ann MD Work Phone: [facility] 09-24-2024 07:57-0400 Diastolic blood pressure 84 mm[Hg] Dr. Sb Ann MD Work Phone: [facility] 09-24-2024 07:57-0400 Heart rate 66 /min Dr. Sb Ann MD Work Phone: [facility] 09-24-2024 07:57-0400 Respiratory rate 15 /min Dr. Sb Ann MD Work Phone: [facility] 09-24-2024 07:57-0400 SaO2% (BldA) [Mass fraction] 97 % Dr. Sb Ann MD Work Phone: [facility] 09-24-2024 07:57-0400 Systolic blood pressure 125 mm[Hg] Dr. Sb Ann MD Work Phone: [facility] 09-24-2024 05:09-0400 Body height 177.[address] Sb Ann MD Work Phone: [facility] 09-24-2024 05:09-0400 Body mass index (BMI) [Ratio] 25.4 kg/m2 Dr. Sb Ann MD Work Phone: [facility] 09-24-2024 05:09-0400 Body weight 80.[address] Sb Ann MD Work Phone: [facility] 09-19-2024 17:29-0400 Body mass index (BMI) [Ratio] 27.8 kg/m2 Emily Lima MD Work Phone: [facility] 09-19-2024 17:29-0400 Body temperature 98.49 [degF] Emily Lima MD Work Phone: [facility] 09-19-2024 17:29-0400 Body weight 86 kg Emily Lima MD Work Phone: [facility] 09-19-2024 17:29-0400 Diastolic blood pressure 72 mm[Hg] Emily Lima MD Work Phone: [facility] 09-19-2024 17:29-0400 Heart rate 74 /min Emily Lima MD Work Phone: [facility] 09-19-2024 17:29-0400 Respiratory rate 16 /min Emily Lima MD Work Phone: [facility] 09-19-2024 17:29-0400 SaO2% (BldA) [Mass fraction] 99 % Emily Lima MD Work Phone: [facility] 09-19-2024 17:29-0400 Systolic blood pressure 122 mm[Hg] Emily Lima MD Work Phone: [facility] 10-26-2022 07:37-0400 Body temperature 97.9 [degF] [facility] [employer] SALES EXECUTIVE.[employer] TECHNICIAN Work Phone: [facility] 10-26-2022 07:37-0400 Body weight 87.09 kg [facility] [employer]B SALES EXECUTIVE.[employer] M[employer] TECHNICIAN Work Phone: [facility] 10-26-2022 07:37-0400 Diastolic blood pressure 70 mm[Hg] [facility] [employer]B SALES EXECUTIVE.FE[employer] MILL [employer] TECHNICIAN Work Phone: [facility] 10-26-2022 07:37-0400 Heart rate 74 /min [facility] B2B SALES EXECUTIVE.FE[employer] M[employer] TECHNICIAN Work Phone: [facility] 10-26-2022 07:37-0400 Respiratory rate 16 /min [facility] B2B SALES EXECUTIVE.FE[employer] MILL LAB TECHNICIAN Work Phone: [facility] 10-26-2022 07:37-0400 SaO2% (BldA) [Mass fraction] 95 % [facility] B2B SALES EXECUTIVE.FE[employer] M[employer] LAB TECHNICIAN Work Phone: [facility] 10-26-2022 07:37-0400 Systolic blood pressure 124 mm[Hg] [facility] B2B SALES EXECUTIVE.FE[employer] M[employer] LAB TECHNICIAN Work Phone: [facility] 03-30-2022 07:02-0500 Body height 175.9 cm Sarah [place] B2B SALES EXECUTIVE.FE[employer] M[employer] TECHNICIAN Work Phone: [facility] 03-30-2022 07:02-0500 Body weight 83.83 kg Sarah Karen B2B SALES EXECUTIVE.[employer] TECHNICIAN Work Phone: [facility] 03-30-2022 07:02-0500 Diastolic blood pressure 64 mm[Hg] Sarah Karen B2B SALES EXECUTIVE.FE[employer] M[employer] TECHNICIAN Work Phone: [facility] 03-30-2022 07:02-0500 Systolic blood pressure 110 mm[Hg] Sarah [place] B2B SALES EXECUTIVE.FE[employer] M[employer] LAB TECHNICIAN Work Phone: [facility] 11-26-2021 08:04-0400 Body temperature 97.4 [degF] Dr. Sb Ann Work Phone: [facility] Work Phone: 11-26-2021 08:04-0400 Body weight 82.[address] Sb Ann Work Phone: [facility] Work Phone: 11-26-2021 08:04-0400 Diastolic blood pressure 77 mm[Hg] Dr. Sb Ann Work Phone: [facility] Work Phone: 11-26-2021 08:04-0400 Heart rate 70 /min Dr. Sb Ann Work Phone: [facility] Work Phone: 11-26-2021 08:04-0400 Respiratory rate 16 /min Dr. Sb Ann Work Phone: [facility] Work Phone: 11-26-2021 08:04-0400 SaO2% (BldA) [Mass fraction] 93 % Dr. Sb Ann Work Phone: [facility] Work Phone: 11-26-2021 08:04-0400 Systolic blood pressure 127 mm[Hg] Dr. Sb Ann Work Phone: [facility] Work Phone: Encounters Encounter Date Encounter Type Care Provider Facility Start: 09-27-2024 Encounter for genera l adult medical examination without abnormal findings Sb Enrique [facility] Start: 09-27-[address] Sb Ann MD -Laboratory Work Phone: Start: 09-27-2024 ambulatory Sb Ann Facility :[facility] Start: 09-27-2024 End: 09-27-[address] Sb Ann MD -[facility] Work Phone: Start: 09-27-2024 End: 09-27-[address] Sb Ann MD [facility] Start: 09-27-2024 End: 09-27-[address] Sb Ann MD Work Phone: -[facility] Start: 09-24-2024 End: 09-24-2024 Emergency department patient visit Dr. Sb Ann MD Work Phone: -Emergency Department Work Phone: Start: 09-21-2024 ambulatory EMILY LIMA Facility :[facility] Start: 09-21-2024 End: 09-21-2024 Subsequent hospital visit by physician [facility] Comment on above: Rash [R21] Start: 09-19-2024 End: 09-19-2024 Office outpatient new 45 minutes Emily Lima MD Work Phone: [facility] Comment on above: Cellulitis of skin ( Primary Dx); Rash; Pain of left lower extremity Start: 09-19-2024 End: 09-19-2024 ambulatory SB ANN Facility:[facility] Start: 04-23-2023 Documentation procedure Mammog abraham [facility] Start: 04-23-2023 Letter encounter Mammography Coordinator [facility] Department Start: 04-23-2023 End: 04-23-2023 Subsequent hospital visit by physician Screen Mammo [facility] Comment on above: Encounter for screen ing mammogram for malignant neoplasm of breast [Z12.31] Start: 10-26-2022 End: 10-26-2022 Office outpatient visit 15 minutes Anthony Anderson APRN.CNP Work Phone: [facility] Comment on above: Acute otitis externa of left ear, unspecified type (Primary Dx) Start: 04-24-2022 End: 04-24-2022 Non-patient / Non-visit Dr. Sb Ann Work Phone: [facility] Start: 04-24-2022 End: 04-24-[address] Sb Ann Work Phone: [facility] Work Phone: Start: 04-24-2022 End: 04-24-[address] Sb Ann Work Phone: [facility]-Pulmonary Services/Neurology Start: 04-09-2022 Documentation procedure Mammog abraham Coordinator [facility] Start: 04-09-2022 Letter encounter Mammography Coordinator [facility] Department Start: 04-08-2022 End: 04-08-2022 Subsequent hospital visit by physician Screen Mammo [facility] Comment on above: Encounter for screen ing mammogram for breast cancer [Z12.31] Start: 03-30-2022 End: 03-30-2022 Patient encounter procedure Sarah Jones APRN.CNP Work Phone: OB/Gynecology Comment on above: Encounter for gyneco logical examination (general) (routine) without abnormal findings (Primary Dx); Encounter for screening mammogram for breast cancer Start: 03-30-2022 End: 03-30-2022 Patient encounter status Sarah Jones APRN.CNP Work Phone: OB/Gynecology Start: 03-13-2022 End: 03-13-[address] Sb Ann Work Phone: [facility] Work Phone: Start: 03-13-2022 End: 03-13-[address] Sb Ann Work Phone: [facility] Start: 11-26-[address] Consuelo Ann Work Phone: [facility] Start: 11-26-2021 End: 11-26-2021 Encounter for general adult medical examination without abnormal findings Dr. Sb Ann Work Phone: [facility] Start: 11-26-2021 End: 11-26-[address] Sb Ann Work Phone: [facility] Procedures Date Procedure Procedure Detail Performing Clinician Start: 09-24-2024 CT of abdomen and pe lvis without contrast Dr. Sb Ann MD Work Phone: Start: 09-24-2024 Urnls dip stick/tabl et reagent auto microscopy Dr. Sb Ann MD Work Phone: Start: 09-24-[address] Sb Ann MD Work Phone: Start: 09-21-2024 Dup-scan xtr veins unilateral/limited study Emily Lima MD Work Phone: Start: 04-23-2023 Screening mammograph y bi 2-view breast inc cad Ana Meza MD Work Phone: Start: 04-08-2022 End: 04-08-2022 Mammography Sarah [place] B2B SALES EXECUTIVE.[employer] Work Phone: Start: 03-13-2022 MRI of joint of lowe r extremity Dr. Sb Ann Work Phone: Start: 07-01-2020 Mammography Sarah Met gurmeet B2B SALES EXECUTIVE.FEED MILL [employer] TECHNICIAN Work Phone: Start: 06-28-2020 Lipid 1996 panel - S farhan or Plasma Screen Ws Plan of Treatment Date Care Activity Detail Author Start: 2034 RSV Vaccine (1 - 1-d ose 75+ series) RSV Vaccine (1 - 1-dose 75+ series) [facility] Start: 06-28-2025 Lipid 1996 panel - S farhan or Plasma Lipid Screening [facility] Start: 06-28-2025 Lipid panel Lipid Screening [facility] Start: 06-28-2025 LIPID SCREEN LIPID SCREEN [facility] Start: 06-25-2025 HPV TESTING HPV TESTING [facility] Start: 06-25-2025 PAP TESTING PAP TESTING [facility] Start: 06-25-2025 Screening for malign ant neoplasm of cervix [facility] Start: 11-13-2024 Influenza vaccination Influenza Vacc ine (#1) [facility] Start: 09-27-2024 C reactive protein [Mass/volume] in Serum or Plasma [facility] Start: 09-27-2024 CBC W Auto Different ial panel - Blood [facility] Start: 09-27-2024 Comprehensive metabo lic 2000 panel - Serum or Plasma [facility] Start: 09-27-2024 Creatine kinase [Enz ymatic activity/volume] in Serum or Plasma [facility] Start: 09-27-2024 Erythrocyte sediment ation rate [facility] Start: 09-27-2024 Lipid 1996 panel - S farhan or Plasma [facility] Start: 09-27-2024 Thyroid stimulating hormone measurement [facility] Start: 09-24-2024 [facility] Start: 09-21-2024 End: 09-21-2024 Patient encounter procedure 09/21/2024 7:30 AM EDT Appointment [facility] [address] [place] [address] Rash [R21]; Pain of left lower extremity [M79.605] [facility] Comment on above: Rash [R21]; Pain of left lower extremity [M79.605] Start: 09-20-2024 End: 10-19-2025 US Lower extremity vein - left US DVT LOWER LEFT Radiology STAT Rash Pain of left lower extremity Expected: 09/20/2024, Expires: 10/19/2025 [facility] Work Phone: Comment on above: Expected: 09/20/2024 , Expires: 10/19/2025 Start: 04-23-2024 Screening for malign ant neoplasm of breast Mammogram Screening [facility] Start: 03-15-2024 Advance Directive Discussion Advance Directive Discussion [facility] Start: 02-15-2024 Screening for osteoporosis Bone Dens ity Screening [facility] Start: 11-14-2023 Covid-19 Vaccine ( season) Covid-19 Vaccine () [facility] Start: 06-29-2023 DIABETES SCREEN DIABETES SCREEN [facility] Start: 06-29-2023 Diabetes Screening Diabetes Screenin g [facility] Start: 04-08-2023 Mammography [facility] Start: 03-15-2023 Depression Assessment Depression Ass essment [facility] Start: 11-13-2022 Influenza vaccination [facility] Start: 03-15-2022 DEPRESSION ASSESSMENT DEPRESSION ASS ESSMENT [facility] Start: 11-13-2021 Influenza vaccination INFLUENZA (#1) [facility] Start: 07-01-2021 Mammography MAMMOGRAM [facility] Start: 2019 RSV Vaccine (1 - 1-d ose 60+ series) RSV Vaccine (1 - 1-dose 60+ series) [facility] Start: 01-08-2018 Urine microalbumin profile DTa P,Tdap,Td Vaccine (2 - Td or Tdap) [facility] Start: 2009 Pneumococcal Vaccine : 50+ (1 of 1 - PCV) Pneumococcal Vaccine: 50+ (1 of 1 - PCV) [facility] Start: 2009 SHINGRIX VACCINE (1 of 2) DIAMOND GRIX VACCINE (1 of 2) [facility] Start: 02-15-2004 COLOGUARD (FIT-DNA) COLOGUARD (FIT-D NA) [facility] Start: 02-15-2004 Colonoscopy COLONOSCOPY [facility] Start: 02-15-2004 COLORECTAL CANCER SCREENING COLORECTAL CANCER SCREENING [facility] Start: 02-15-[address] COLONOGRAPHY [facility] Start: 02-15-2004 FECAL OCCULT BLOOD FECAL OCCULT BLOO D [facility] Start: 02-15-2004 Screening for malign ant neoplasm of colon [facility] Start: 02-15-2004 SIGMOIDOSCOPY SIGMOIDOSCOPY [facility] Start: 1978 Urine microalbumin profile DTAP,TDAP ,TD (1 - Tdap) [facility] Start: 1977 Anxiety Screening Anxiety Screening [facility] Start: 1977 Depression Screening Depression Scre ening [facility] Start: 1977 HEPATITIS C SCREENING HEPATITIS C [facility] Start: 1977 Hepatitis C screening Hepatitis C [facility] Start: 1977 HIV SCREENING HIV SCREENING [facility] Start: 1977 HIV screening HIV Screening [facility] Start: 1960 COVID-19 VACCINE (#1) COVID-19 VACCI NE (#1) [facility] Alanine aminotransfe rase [Enzymatic activity/volume] in Serum or Plasma [facility] Albumin [Mass/volume ] in Serum or Plasma [facility] Alkaline phosphatase [Enzymatic activity/volume] in Serum or Plasma [facility] Anion gap in Serum o r Plasma [facility] Bilirubin, total measurement [facility] BUN/Creatinine ratio [facility] Calcium [Mass/volume ] in Serum or Plasma [facility] Carbon dioxide, tota l [Moles/volume] in Central venous blood [facility] Cholesterol [Mass/vo lume] in Serum or Plasma [facility] Cholesterol in HDL [Mass/volume] in Serum or Plasma [facility] Creatinine [Mass/vol ume] in Serum or Plasma [facility] Erythrocyte mean corpuscular volume determination [facility] Glucose [Mass/volume ] in Serum or Plasma [facility] Hematocrit [Volume Fraction] of Blood [facility] Hemoglobin [Mass/vol ume] in Blood [facility] Leukocytes [#/volume ] in Blood [facility] Low density lipoprot ein cholesterol measurement [facility] End: 04-29-2023 AFSHAN SCREENING AFSHAN SCREENING Radiology Routine Encounter for screening mammogram for breast cancer 1 Occurrences starting 03/30/2022 until 04/29/2023 [facility] Work Phone: Comment on above: 1 Occurrences starti ng 03/30/2022 until 04/29/2023 Mean corpuscular hemoglobin concentration determination [facility] Mean corpuscular hemoglobin determination [facility] Measurement of renal function [facility] Neutrophil count [facility] Neutrophil percent differential count [facility] Patient Education ED Abdominal P ain Unkn Cause Fem [facility] Work Phone: Platelets [#/volume] in Blood [facility] Potassium measurement [facility] Red blood cell count [facility] Red cell distributio n width determination [facility] Serum chloride measurement [facility] Sodium measurement [facility] Total cholesterol:HD L ratio measurement [facility] Total protein measurement [facility] Triglycerides measurement [facility] Urea nitrogen [Mass/volume] in Serum or Plasma [facility] VLDL cholesterol measurement [facility] Payers Date Payer Category Payer Self-pay [id number] 2022 Private Health Insurance [id number] 2022 Private Health Insurance [id number] 2019 Unknown [id number] Unknown [id number] Unknown [facility] [id number] Unknown [id number] Unknown [id number] Unknown [id number] Social History Date Type Detail Facility Start: 11-26-2021 Tobacco smoking stat [facility] Unknown if ever smoked [facility] Start: 1960 [facility] Start: 03-30-2022 End: 09-24-2024 Tobacco smoking status NHIS Never smoked tobacco [facility] Work Phone: Start: 03-30-2022 Tobacco use and exposure Smokeless tobacco non-user [facility] Work Phone: Start: 03-30-2022 End: 10-26-2022 Alcohol intake Current drinker of alcohol (finding) [facility] Start: 1960 [facility] Start: 03-30-2022 End: 10-26-2022 History of Social function [facility] Start: 03-30-2022 End: 10-26-2022 Tobacco use panel [facility] National Score (1-10 0), lower number is lower risk 46 [facility] Start: 04-01-2022 Gender identity Identifies as female gender (finding) [facility] Start: 04-01-2022 Sexual orientation Heterosexual (juliette pelayo) [facility] Clinical Notes 03-30-2022 to 09-24-2024 Oleg Patel, TECHNOLOGIST - 09/21/2024 7:30 AM EDTPatient Emily Hernandez MD - 09/19/2024 5:31 PM Briana - Coordinator, Mammography - 04/23/2023 10:28 AM EST Note Date & Type Note Facility 09-24-2024 Discharge summary [facility] 09-24-2024 Radiology Diagnostic study note [facility] Imaging Services [address] [place], [place] [address] Abdomen/Pelvis without Cont MR#: [id number] Acct: [id number] Name: JENNY CHAVARRIA Rep #: [id number] : 1960 F 64 From: Caren Unger MD PCP: Dr. Sb Ann MD Status: REG ER Study:Abdomen/Pelvis without Cont Date of Exa m: 09/24/24 Exam# [id number] Ordering Dr: Alphonse Whittaker DO PROCEDURE: ABDOMEN/PELVIS WITHOUT CONT 09/24/2024 REASON FOR EXAM: PAIN TECHNIQUE: ABDOMEN/PELVIS WITHOUT CONT Noncontrast technique limits evaluation of the abdominal and pelvic viscera. Coronal and Sagittal reconstruction series were provided. One or more dose reduction techniques were used (e.g., Automated exposure control, adjustment of the mA and/or kV according to patient size, use of iterative reconstruction technique). RADIATION DOSE SUMMARY: DLP: 400 mGycm COMPARISON: None. FINDINGS: Lung bases: Unremarkable. Liver: The liver is normal in size with hepatic dome hypodensity, incompletely evaluated. No biliary ductal dilation. Gallbladder: No radiopaque stones within the gallbladder. Spleen: Normal in size. Pancreas: The unopacified pancreas is unremarkable. Adrenals: No adrenal mass. Kidneys: No hydronephrosis or nephrolithiasis. Bladder: Mildly distended and unremarkable. Reproductive Organs: Normal uterine size and contour. Ovaries are unremarkable. Bowel: The bowel loops are nondilated. No ascites or pneumoperitoneum. Normal appendix. Lymph nodes: Visualization is limited without the use of IV contrast. No large lymphadenopathy. Vasculature: Moderate calcific plaque of the aortoiliac vessels. Bones: Thoracolumbar spondylosis. Small fat containing right inguinal hernia. CT/Abdomen/Pelvis without Cont IMPRESSION: No acute abdominopelvic finding. Reading Location: [id number] CC: Dr. Alphonse Lowry, DO; Dr. Sb Ann MD ~ Thermoscrew Operator: Signed [facility] 09-21-2024 History of Present illness Narrative Radiology [...] PATIENT PRESENTS WITH AN IMPLANTABLE OR ATTACHED WIRE DRAWING MACHINE OPERATOR: No RADIOLOGY DEPARTMENT: Ultrasound PERIPHERAL IV DATA: Not applicable SIGNED BY: TECHNOLOGIST Tutu September 21, 2024 7:47 AM documented in this encounter [facility] 09-21-2024 Note HNO ID: [id number] Author: OLEG PATEL TECHNOLOGIST Service: ? Author Type: Technologist Type: Progress Notes Filed: 09/21/2024 07:48 Note Text: Radiology Service Progress Note PATIENT NAME: Jenny [...] PATIENT PRESENTS WITH AN IMPLANTABLE OR ATTACHED WIRE DRAWING MACHINE OPERATOR: No RADIOLOGY DEPARTMENT: Ultrasound PERIPHERAL IV DATA: Not applicable SIGNED BY: Oleg Patel, TECHNOLOGIST September 21, 2024 7:47 AM [facility] 09-19-2024 Instructions Emily Lima MD - 09/19/2024 5:42 PM EDT START THE MEDS AND GET THE ULTRASOUND TOMORROW WE WILL NOTIFY OF RESULTS IF ANY WORSE GO TO THE ED documented in this encounter [facility] 09-19-2024 Note HNO ID: [id number] Author: EMILY LIMA MD Service: ? Author [...] suggestive Disposition The patient was discharged. Procedures [facility] 09-19-2024 History of Present illness Narrative URGENT [...] was discharged. Procedures documented in this encounter [facility] 04-23-2023 Miscellaneous Notes April 23, 2023 PID: [id number] Jenny Chavarria [address] [place] [address] Dear Ms. Chavarria, We are pleased to [...] report will be kept on file at [facility] as part of your permanent medical record and are available for your continuing care. Thank you for allowing us to help in meeting your health care needs. Sincerely, Dr. Mcbride Interpreting Radiologist [facility] (Normal over 40) documented in this encounter [facility] 04-23-2023 History of Present illness Narrative Radiology [...] PATIENT PRESENTS WITH AN IMPLANTABLE OR ATTACHED WIRE DRAWING MACHINE OPERATOR: No RADIOLOGY DEPARTMENT: Mammography PERIPHERAL IV DATA: Not applicable SIGNED BY: RT Brenna(R) April 23, 2023 7:05 AM documented in this encounter [facility] 10-26-2022 History of Present illness Narrative Subjective [...] of care. This note was generated using [employer] software. It may contain errors in wording, punctuation, or spelling. Anthony Anderson APRN.TANO documented in this encounter [facility] 04-09-2022 Miscellaneous Notes April 10, 2022 PID: [id number] Jenny Juan Miguel [address] [place] [address] Dear Ms. Chavarria, We are pleased to [...] report will be kept on file at [facility] as part of your permanent medical record and are available for your continuing care. Thank you for allowing us to help in meeting your health care needs. Sincerely, Dr. Montiel Interpreting Radiologist 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 LMP: 11/29/2009, Ablation Age at Menarche: Age at First : Age at Menopause: Territory Business Manager History Comments: Sexual Activity: Yes; Male Contraception: [...] external genitalia normal, normal Bartholin's glands, urethra, [place]'s glands, no vulvar lesions, no cervical lesions, [...] year or sooner as needed Sarah Jones APRN.CNP documented in this encounter [facility] Discharge summary Note Date/Time September 24, 2024 7:42am [facility] Medical Records Department [address] [place] [address] Emergency Department Summary 09/24/24 MR#: [id number] Acct: [id number] Name: JENNY CHAVARRIA Rep #:[id number] : 1960 64 From: Alphonse faustin DO PCP: Dr. Sb Ann MD Status:REG ER Location: ED HPI HPI - Female History of Present Illness Chief Complaint: Complaint Narrative Narrative: Chief complaint and HPI: Dysuria and suprapubic pressure. 64-year-old female presents for evaluation of dysuria and suprapubic pressure. Onset this morning. Patient states 3 weeks ago she was bit by a possible spider on the back of herleft leg. She developed pain and swelling in the leg. She was seen by urgent care. Placed on antibiotics and had a DVT study that was performed which was negative. Patient states she thinks her symptoms today are related to a UTI however she does not know if it is related to the spider bite which is why she presents. She denies any fever, chills, shortness of breath, chest pain, nausea,vomiting. Review of systems: See HPI Medications: As listed on the chart Allergies: As listed on the chart PFSH: Per chart Vital signs: As listed on the chart. Reviewed. Physical exam: Gen: A&O x3, NAD Head: Normocephalic, atraumatic Eyes: No sclera icterus, conjunctiva clear ENT: Moist mucous membranes Neck: Trachea midline, No JVD CV: RRR, no murmurs, no peripheral edema Resp: Lungs CTA BL, no w/r/c GI: Abd soft, non-distended, non-tender, no r/r/g : No CVA tenderness Musc: Full ROM, no deformity, femoral/DP/PT pulses +2 bilaterally, left lower extremity is without swelling or rash, no spider bite or rash present, compartments soft Skin: Warm, dry Neuro: Alert, oriented, grossly intact, sensation intact Psych: Cooperative, appropriate mood and affect [facility] Medical History Elevated low density lipoprotein (LDL) cholesterol level Home Medications ?Medication ?Instructions ?Recorded ?Last Taken ?Type acyclovir 5 % topical ointment 1 applic topical .twice daily 5 02/18/23 Unknown Rx days #15 grams escitalopram oxalate 10 mg tablet 10 mg PO DAILY #90 t abs 03/24/24 Unknown Rx Allergy/AdvReac Type Severity Reaction Status Date / Time No Known Allergies Allergy Verified 09/24/24 05:09 Family History Father Cancer Hypertension Mother Hypertension Social History Smoking Status: Never smoker alcohol intake: current alcohol intake frequency: holidays/special occasions only substance use type: does not use what type of physical activity do you participate in: walking and aerobics frequency: daily EXAM Physical Exam Const Vital Signs: 09/24/24 05:09 09/24/24 07:08 Temperature 98.9 F 98.4 F Temperature Source Oral Oral Pulse Rate 82 65 Respiratory Rate 18 15 Blood Pressure 132/78 H 135/79 H Blood Pressure Mean 96 97 Pulse Ox 97 97 Oxygen Delivery Method Room Air Room Air MDM MDM MDM Narrative Medical decision making narrative: 64-year-old female presents for evaluation of dysuria and suprapubic pressure. Onset this morning. Patient states 3 weeks ago she was bit by a possible spideron the back of her left leg. Was seen in urgent care. Had a duplex ultrasound that was negative for DVT but there was concern for infection so she was placed on antibiotics. Symptoms have since resolved. Patient was concerned that her symptoms today may be related to the spider bite. Given that patient's previousspider bite symptoms have improved/resolved, I do not think the 2 are related. Her vitals are stable. Physical exam is unremarkable. Concern is for UTI. UA ordered. UA negative for UTI however positive for blood. Patient's pain may besecondary to urolithiasis. Will add on basic labs and CT abdomen pelvis withoutcontrast. She confirmed understanding of the plan. CBC unremarkable. BMP without RUSS. CT abdomen pelvis without any acute intra-abdominal process. At this point in time, no clear etiology for patient's symptoms. She needs to follow-up with her primary care physician. She is updated all the results and confirmed understand the plan. Patient stable to discharge home. Return precautions explained. Impression: 1. Abdominal pain 2. Dysuria Lab Data Labs: Laboratory Results - last 24 hr 09/24/24 09/24/24 05:29 06:09 WBC 8.2 RBC 4.79 Hgb 14.1 Hct 42.3 MCV 88.3 MCH 29.4 MCHC 33.3 RDW Std Deviation 41.3 RDW Coeff of Sanjiv 12.8 Plt Count 300 MPV 10.3 Immature Gran % (Auto) 0.100 Neut % (Auto) 73.7 H Lymph % (Auto) 19.7 [place] % (Auto) 5.6 Eos % (Auto) 0.7 Baso % (Auto) 0.2 Absolute Neuts (auto) 6.0 Absolute Lymphs (auto) 1.62 Nucleated RBC % 0 Urine Color Yellow Urine Clarity Clear Urine pH 6.5 Ur Specific [place] 1.015 Urine Protein 30 H Urine Glucose (UA) Normal Urine Ketones Negative Urine Occult Blood 10 H Urine Nitrite Negative Urine Bilirubin Negative Urine Urobilinogen 1 H Ur Leukocyte Esterase Negative Urine RBC 0 SEEN Urine WBC 0 SEEN Ur Squamous Epith Cells 0-5 SEEN Urine Bacteria 0 SEEN Urine Mucus 0 SEEN Radiography Diagnostic Testing: Clinical Impression(s) from Imaging Studies Abdomen/Pelvis CT 09/24/24 06:37 IMPRESSION: No acute abdominopelvic finding. Reading Location: [facility] Discharge Plan Triage Chief Complaint: Complaint ED Provider: Alphonse Lowry Dx/Rx/DC Orders Prescriptions: No Action acyclovir 5 % ointment 1 applic topical .twice daily 5 Days Qty: 15 2RF escitalopram oxalate 10 mg tablet 10 mg PO DAILY Qty: 90 3RF Primary Care Provider: Sb Ann Referrals: Sb Ann MD [Primary Care Provider] - Print Language: Persian What to do if you have Problems For any increased pain, shortness of breath, bleeding, nausea or vomiting, chestpain, or any unexpected problems, contact your Primary Care Provider. Call [employer] [facility] ([phone]) or report to the closest Emergency Room. Call 911 if necessary. 09/24/24 0742 <Electronically signed by Alphonse Lowry DO> Cosigner Signature (if applicable): CC: Dr. Sb Ann MD ~ Signed [facility] Work Phone: Evaluation note* Diagnosis Onset Date Resolution Status Encounter for wellness examination in adult acute Skin rash acute [facility] Work Phone: Evaluation note* Diagnosis Encounter for gynecological examination (general) (routine) without abnormal findings- Primary Encounter for screening mammogram for breast cancer documented [facility] [place] noteNo assessment information [facility]WToledo [facility] Work Phone: Evaluation note* Diagnosis Acute otitis externa of left ear, unspecified type- Primary documented in this encounter [facility] note* Diagnosis Encounter for screening mammogram for breast cancer documented in this encounter [facility] note* Diagnosis Encounter for screening mammogram for malignant neoplasm of breast Other screening mammogram documented in this encounter [facility] note* Diagnosis Cellulitis of skin- Primary Cellulitis and abscess of unspecified site Rash Rash and other nonspecific skin eruption Pain of left lower extremity documented [facility] [place] [facility]* Diagnosis Rash Rash and other nonspecific skin eruption Pain of left lower extremity documented in this encounter [facility] note* Diagnosis Onset Date Resolution Status Admit Date Cellulitis acute September 27 11:30am Elevated low density lipopro tein (LDL) cholesterol level acute September 11:30am Encounter for wellness examination in adult acute September 27, 2024 11:30am [facility] Work Phone: Hospital Discharge instructionsAdditional Instructions Follow-up with your primary care physician. Return back to the ED if symptoms change or worsen. You did have blood in your urine, you need to follow-up with your primary care physician.[facility] Work Phone: Reason for referral (narrative)* Diagnostic Procedure Only (Routine) - Pending Review Specialty Diagnoses / Procedures Referred By Contac t Referred To Contact [facility] Diagnoses Encounter for screening mammogram for breast cancer Procedures AFSHAN SCREENING SCREENING MAMMOGRAPHY BI 2-VIEW BREAST INC CAD Sarah Jones [employer] TECHNICIAN [address] [place] [address] [facility] [address] [place] [address] Referral ID Status Reason Start Date Expiration Date Visits Requested Visits Authorized [id number] Pending Review Auto-Generat ed Referral 03/30/2022 04/29/2023 1 1 [facility] for referral (narrative)* Diagnostic Procedure Only (Routine) - Closed Specialty Diagnoses / Procedures Referred By Contac t Referred To Contact [facility] Diagnoses Encounter for screening mammogram for breast cancer Procedures AFSHAN SCREENING SCREENING MAMMOGRAPHY BI 2-VIEW BREAST INC [facility], [employer] TECHNICIAN [address] [place] [address] [facility] [address] [place] [address] Referral ID Status Reason Start Date Expiration Date V isits Requested Visits Authorized [id number] Closed Auto-Generate d Referral 03/30/2022 04/29/2023 1 1 [facility] for referral (narrative)* Diagnostic Procedure Only (Routine) - Closed Specialty Diagnoses / Procedures Referred By Contac t Referred To Contact [facility] Diagnoses Encounter for screening mammogram for malignant neoplasm of breast Procedures AFSHAN SCREENING SCREENING MAMMOGRAPHY BI 2-VIEW BREAST INC CAD Ana Meza MD [address] [place] [address] [facility] [address] [place] [address] Referral ID Status Reason Start Date Expiration Date V isits Requested Visits Authorized [id number] Closed Auto-Generate d Referral 03/26/2022 04/24/2023 1 1 [facility] for referral (narrative)No reason for referral information availableWToledo Hospital Work Phone: Reason for visit Narrative* Diagnostic Procedure Only (Routine) - Closed Specialty Diagnoses / Procedures Referred By Contac t Referred To Contact [facility] Diagnoses Encounter for screening mammogram for breast cancer Procedures AFSHAN SCREENING SCREENING MAMMOGRAPHY BI 2-VIEW BREAST INC CAD Karen SarahWADE.FE[employer] MILL LAB TECHNICIAN [address] [place] [address] [facility] [address] [place] [address] Referral ID Status Reason Start Date Expiration Date V isits Requested Visits Authorized [id number] Closed Auto-Generate d Referral 03/30/2022 04/29/2023 1 1 [facility] for visit Narrative* Diagnostic Procedure Only (Routine) - Closed Specialty Diagnoses / Procedures Referred By Lester t Referred To Contact [facility] Diagnoses Encounter for screening mammogram for malignant neoplasm of breast Procedures AFSHAN SCREENING SCREENING MAMMOGRAPHY BI 2-VIEW BREAST INC CAD Ana Meza MD [address] [place] [address] [facility] [address] [place] [address] Referral ID Status Reason Start Date Expiration Date V isits Requested Visits Authorized [id number] Closed Auto-Generate d Referral 03/26/2022 04/24/2023 1 1 [facility] for visit Narrative* Diagnostic Procedure Only (Urgent) - Closed Specialty Diagnoses / Procedures Referred By Contac t Referred To Contact [facility] Diagnoses Rash Pain of left lower extremity Procedures US DVT LOWER LEFT DUP-SCAN XTR VEINS UNILATERAL/[place] [address] [place] [address] Phone: tel: fax: [place] [address] Referral ID Status Reason Start Date Expiration Date V isits Requested Visits Authorized [id number] Closed Auto-Generate d Referral 09/20/2024 10/19/2025 1 1 [facility] Chief Complaint and Reason for Visit Chief Complaint 6-8M F/U Unilateral primary osteoarthritis, left knee Reason for Visit [facility] Skin rash Chief Complaint Unilateral primary o steoarthritis, left knee PRE OP PRE OP Chief Complaint Admit Date urinary problems September 24, 2024 5:07 am Chief Complaint Admit Date urinary problems September 24, 2024 5:07 am Annual/Physical September 27, 2024 11:3 0am 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 September 27, 2024 12:3 3pm Reason for Visit Admit Date Cellulitis September 27, 2024 11:3 0am Elevated low density lipoprotein (LDL) c holesterol level September 27, 2024 11:30am Encounter for wellness examination in ad ult September 27, 2024 11:30am Family History No Family History Records Found Relationship Condition Age at Onset Recorded Date/T mariama father Malignant neoplasm Unknown Hypertension Unknown mother Hypertension Unknown Summary Purpose Advance Directives No Advanced Directives Records Found Advance Directive Response Recorded Date/ Time Do you have a Healthcare Power of Bail Bond Agent? No September 24, 2024 5:31am Additional Source Comments Goals (unrecognized section and content) Goals may be documented in a n alternate sectionGoals may be documented in an alternate sectionGoals may be documented in an alternate sectionGoals may be documented in an alternate section Source Comments (unrecognize d section and content) In the event this informatio n is protected by the Federal Confidentiality of Alcohol and Drug Abuse Patient Records regulations: The Federal rules restrict any use of the information to criminally investigate or prosecute any alcohol or drug abuse patient.[facility] the event this information is protected by the Federal Confidentiality of Alcohol and Drug Abuse Patient Records regulations: The Federal rules restrict any use of the information to criminally investigate or prosecute any alcohol or drug abuse patient.[facility] System[facility] the event this information is protected by the Federal Confidentiality of Alcohol and Drug Abuse Patient Records regulations: The Federal rules restrict any use of the information to criminally investigate or prosecute any alcohol or drug abuse patient.[facility] System[facility] the event this information is protected by the Federal Confidentiality of Alcohol and Drug Abuse Patient Records regulations: The Federal rules restrict any use of the information to criminally investigate or prosecute any alcohol or drug abuse patient.[facility] System[facility] the event this information is protected by the Federal Confidentiality of Alcohol and Drug Abuse Patient Records regulations: The Federal rules restrict any use of the information to criminally investigate or prosecute any alcohol or drug abuse patient.[facility] System[facility] the event this information is protected by the Federal Confidentiality of Alcohol and Drug Abuse Patient Records regulations: The Federal rules restrict any use of the information to criminally investigate or prosecute any alcohol or drug abuse patient.[facility] System[facility] the event this information is protected by the Federal Confidentiality of Alcohol and Drug Abuse Patient Records regulations: The Federal rules restrict any use of the information to criminally investigate or prosecute any alcohol or drug abuse patient.[facility] System[facility] the event this information is protected by the Federal Confidentiality of Alcohol and Drug Abuse Patient Records regulations: The Federal rules restrict any use of the information to criminally investigate or prosecute any alcohol or drug abuse patient.[facility] Reason for Visit (unrecogniz ed section and [...] Dr. Inderjit Jean MD Attending Provider Active Justin PALMER PA-C Referring Provider Active Team Status: Inactive Member Role Status Dates Dr. Sb Ann MD Primary Care Provider Active Dr. Emily Dale DO Attending Provider, Referring Provider Active Team Status: Inactive Member Role Status Dates Dr. Sb Ann MD Primary Care Provider Active Justin PALMER PA-C Attending Provider Active Home Help Aide Relationship Specialty Start Date End Date Sb Ann MD [address] [facility] [address] [place] [address] PCP - General Internal Medicine 10/26/22 Home Help Aide Relationship Specialty Start Date End Date Sb Ann MD [address] [facility] [address] [place] [address] PCP - General Internal Medicine 10/26/22 Home Help Aide Relationship Specialty Start Date End Date Sb Ann MD [address] [facility] [address] [place] [address] PCP - General Internal Medicine 10/26/22 Home Help Aide Relationship Specialty Start Date End Date Sb Ann MD [address] [facility] [address] [place] [address] PCP - General Internal Medicine 10/26/22 Home Help Aide Relationship Specialty Start Date End Date Sb Ann MD [address] [facility] [address] [place] [address] PCP - General Internal Medicine 10/26/22 Team Status: Active Member Role/Relationship Status Dates Dr. Sb Ann MD Primary Care Provider Active Team Status: Inactive Member Role/Relationship Status Dates Dr. Sb Ann MD Primary Care Provider Active Start: September 24, 2024 End: September 24, 2024 Dr. Alphonse Lowry DO Emergency Provider Activ e Start: September 24, 2024 End: September 24, 2024 Team Status: Inactive Member Role/Relationship Status Dates Dr. Sb Ann MD Primary Care Provider Active Start: September 27, 2024 End: September 27, 2024 Dr. Sb Ann MD Attending Provider Active Start: September 27, 2024 End: September 27, 2024 Team Status: Active Member Role/Relationship Status Dates Dr. Sb Ann MD Primary Care Provider Active Start: September 27, 2024 Dr. Sb Ann MD Attending Provider Active Start: September 27, 2024 Dr. Sb Ann MD Referring Provider Active Start: September 27, 2024 INFORMATION SOURCE (unrecogn ized section and content) DATE CREATED AUTHOR 09/24/2024 [facility] DATE CREATED AUTHOR AUTHOR'S ORGANIZ ATION 09/25/2024 [facility] DATE CREATED AUTHOR AUTHOR'S ORGANIZ ATION 09/27/2024 [facility] FOR RECORDS PERTAINING TO PATIENTS WHO ARE [...] BE BASED ON THE PRIMARY CLINICAL RECORDS. [employer] provides no warranty or guarantee of the accuracy or completeness of information in this document.
--- OUTSIDE RECORDS SUMMARY | 2024-09-27 22:43 | XMS RPT_ITS | CCD ---
Author Organization [facility] Care Team Providers Care Special Needs Librarian Name Role Phone Dr. Sb Ann Primary Care Provider Dr. Sb Ann Attending Provider [phone] Dr. Sb Ann Referring Provider [phone] Unavailable Primary Care Provider UnavailDr. Sb Kincaid Primary Care Provider Dr. Inderjit Jean Attending Provider [phone] ROYA Bradshaw Referring Provider [phone] Sb Ann MD Primary Care Provider [phone] Sb Ann MD Primary Care Provider [phone] SB ANN Primary Care Unavailable EMILY LIMA Attending Unavailable Dr. Sb Ann MD Primary Care Provider Dr. Alphonse Lowry DO Emergency Provider EMILY [...] Absolute Lymph 2.44 X10 3/uL Normal 0.83-4.51 [facility] Comment on above: Performed By: #### L 501.3620, L501.6710, L501.9520, L500.4100, L500.4050, L100.0100, L101.9900 #### [facility] [address] [place], [address] Absolute Neut 6.3 X10 3/uL Normal 2.0-7.7 [facility] Comment on above: Performed By: #### L 501.3620, L501.6710, L501.9520, L500.4100, L500.4050, L100.0100, L101.9900 #### [facility] [address] [place], [address] Basophils/100 WBC (Bld) 0.2 % Normal 0-1 [facility] Comment on above: Performed By: #### L 501.3620, L501.6710, L501.9520, L500.4100, L500.4050, L100.0100, L101.9900 #### [facility] [address] [place], [address] Eosinophils/100 WBC (Bld) 0.7 % Normal 0-5 [facility] Comment on above: Performed By: #### L 501.3620, L501.6710, L501.9520, L500.4100, L500.4050, L100.0100, L101.9900 #### [facility] [address] [place], [address] Erythrocyte distribution width (RBC) [Ratio] 12.6 % Normal 11.6-14.6 [facility] Comment on above: Performed By: #### L 501.3620, L501.6710, L501.9520, L500.4100, L500.4050, L100.0100, L101.9900 #### [facility] [address] [place], [address] Hematocrit (Bld) [Volume fraction] 44.9 % Normal 37-47 [facility] Comment on above: Performed By: #### L 501.3620, L501.6710, L501.9520, L500.4100, L500.4050, L100.0100, L101.9900 #### [facility] [address] [place], [address] Hemoglobin (Bld) [Mass/Vol] 15.4 g/dL High 12.0-15.0 [facility] Comment on above: Performed By: #### L 501.3620, L501.6710, L501.9520, L500.4100, L500.4050, L100.0100, L101.9900 #### [facility] [address] [place], [address] IG% 0.300 Normal 0.0-0.9 [facility] Comment on above: Result Comment: IG% - Immature Granulocytes (promyelocytes, myelocytes and metamyelocytes) > 1% indicates that a LEFT SHIFT is Present. Performed By: #### L 501.3620, L501.6710, L501.9520, L500.4100, L500.4050, L100.0100, L101.9900 #### [facility] [address] [facility] [place], [address] Lymphocytes/100 WBC (Bld) 26.0 % Normal 19-41 [facility] Comment on above: Performed By: #### L 501.3620, L501.6710, L501.9520, L500.4100, L500.4050, L100.0100, L101.9900 #### [facility] [address] [place] [place], [address] MCH (RBC) [Entitic mass] 29.0 pg Normal 27.0-32.0 [facility] Comment on above: Performed By: #### L 501.3620, L501.6710, L501.9520, L500.4100, L500.4050, L100.0100, L101.9900 #### [facility] [address] [place], [address] MCHC (RBC) [Mass/Vol] 34.3 g/dL Normal 32-36 [facility] Comment on above: Performed By: #### L 501.3620, L501.6710, L501.9520, L500.4100, L500.4050, L100.0100, L101.9900 #### [facility] [address] [place], [address] MCV (RBC) [Entitic vol] 84.6 fL Normal 81-99 [facility] Comment on above: Performed By: #### L 501.3620, L501.6710, L501.9520, L500.4100, L500.4050, L100.0100, L101.9900 #### [facility] [address] [place], [address] Monocytes/100 WBC (Bld) 6.0 % Normal 0-10 [facility] Comment on above: Performed By: #### L 501.3620, L501.6710, L501.9520, L500.4100, L500.4050, L100.0100, L101.9900 #### [facility] [address] [place], [address] Neutrophils/100 WBC (Bld) 66.8 % Normal 47-70 [facility] Comment on above: Performed By: #### L 501.3620, L501.6710, L501.9520, L500.4100, L500.4050, L100.0100, L101.9900 #### [facility] [address] [place], [address] Nucleated RBC (Bld) [#/Vol] 0 10*3/uL Normal 0-5 [facility] Comment on above: Performed By: #### L 501.3620, L501.6710, L501.9520, L500.4100, L500.4050, L100.0100, L101.9900 #### [facility] [address] [place], [address] Platelet mean volume (Bld) [Entitic vol] 9.9 fL Normal 6.2-12.0 [facility] Comment on above: Performed By: #### L 501.3620, L501.6710, L501.9520, L500.4100, L500.4050, L100.0100, L101.9900 #### [facility] [address] [place], [address] Platelets (Bld) [#/Vol] 325 10*3/uL Normal 150-450 [facility] Comment on above: Performed By: #### L 501.3620, L501.6710, L501.9520, L500.4100, L500.4050, L100.0100, L101.9900 #### [facility] [address] [place], [address] RBC (Bld) [#/Vol] 5.31 10*6/uL Normal 4.2-5.4 [facility] Comment on above: Performed By: #### L 501.3620, L501.6710, L501.9520, L500.4100, L500.4050, L100.0100, L101.9900 #### [facility] [address] [place], [address] RDW SD 38.7 fl Normal 35.1-43.9 [facility] Comment on above: Performed By: #### L 501.3620, L501.6710, L501.9520, L500.4100, L500.4050, L100.0100, L101.9900 #### [facility] [address] [place], [address] WBC (Bld) [#/Vol] 9.4 10*3/uL Normal 4.4-11.0 [facility] Comment on above: Performed By: #### L 501.3620, L501.6710, L501.9520, L500.4100, L500.4050, L100.0100, L101.9900 #### [facility] [address] [place], [address] CPK Total, Creatine Kinaseon 09-27-2024 CPK TOTAL 55 U/L Normal 24-195 [facility] Comment on above: Performed By: #### L 501.3620, L501.6710, L501.9520, L500.4100, L500.4050, L100.0100, L101.9900 #### [facility] [address] [place], [address] CRPon 09-27-2024 C-REACTIVE PROT 18.50 mg/L High 0.0-3.0 [facility] Comment on above: Performed By: #### L 501.3620, L501.6710, L501.9520, L500.4100, L500.4050, L100.0100, L101.9900 #### [facility] [address] [place], [place], [id number] Comprehensive Metabolic Prof ilon 09-27-2024 Albumin [Mass/Vol] 4.6 g/dL Normal 3.4-4.8 [facility] Comment on above: Performed By: #### L 501.3620, L501.6710, L501.9520, L500.4100, L500.4050, L100.0100, L101.9900 #### [facility] [address] [place], [address] Albumin/Globulin [Mass ratio] 1.4 {ratio} Normal 0.9-2.4 [facility] Comment on above: Performed By: #### L 501.3620, L501.6710, L501.9520, L500.4100, L500.4050, L100.0100, L101.9900 #### [facility] [address] [place], [address] ALK PHOS 132 U/L High 35-104 [facility] Comment on above: Performed By: #### L 501.3620, L501.6710, L501.9520, L500.4100, L500.4050, L100.0100, L101.9900 #### [facility] [address] [place], [address] ALT [Catalytic activity/Vol] 16 U/L Normal <=34 [facility] Comment on above: Performed By: #### L 501.3620, L501.6710, L501.9520, L500.4100, L500.4050, L100.0100, L101.9900 #### [facility] [address] [place], [address] AST [Catalytic activity/Vol] 17 U/L Normal <=31 [facility] Comment on above: Performed By: #### L 501.3620, L501.6710, L501.9520, L500.4100, L500.4050, L100.0100, L101.9900 #### [facility] [address] [place], [address] Bilirubin [Mass/Vol] 0.60 mg/dL Normal 0.00-1.30 [facility] Comment on above: Performed By: #### L 501.3620, L501.6710, L501.9520, L500.4100, L500.4050, L100.0100, L101.9900 #### [facility] [address] [place], [address] BUN/CRE 25.4 RATIO High 10-20 [facility] Comment on above: Performed By: #### L 501.3620, L501.6710, L501.9520, L500.4100, L500.4050, L100.0100, L101.9900 #### [facility] [address] [place], [address] Calcium [Mass/Vol] 9.7 mg/dL Normal 7.6-11.0 [facility] Comment on above: Performed By: #### L 501.3620, L501.6710, L501.9520, L500.4100, L500.4050, L100.0100, L101.9900 #### [facility] [address] [place], [address] Chloride [Moles/Vol] 99 mmol/L Normal 98-108 [facility] Comment on above: Performed By: #### L 501.3620, L501.6710, L501.9520, L500.4100, L500.4050, L100.0100, L101.9900 #### [facility] [address] [place], [address] CO2 [Moles/Vol] 22.9 mmol/L Normal 21.0-32.0 [facility] Comment on above: Performed By: #### L 501.3620, L501.6710, L501.9520, L500.4100, L500.4050, L100.0100, L101.9900 #### [facility] [address] [place], [address] Creatinine [Mass/Vol] 0.83 mg/dL Normal 0.70-1.20 [facility] Comment on above: Performed By: #### L 501.3620, L501.6710, L501.9520, L500.4100, L500.4050, L100.0100, L101.9900 #### [facility] [address] [place], [address] GAP 15 Normal 5-15 [facility] Comment on above: Performed By: #### L 501.3620, L501.6710, L501.9520, L500.4100, L500.4050, L100.0100, L101.9900 #### [facility] [address] [place], [address] GFR/1.73 sq M.predicted among non-blacks MDRD (S/P/Bld) [Vol rate/Area] 79 mL/min/{1.73_m2} Normal >60 [facility] Comment on above: Result Comment: mL/m in/1.73m2 CKD-EPI Creatinine Equation (2020) Performed By: #### L 501.3620, L501.6710, L501.9520, L500.4100, L500.4050, L100.0100, L101.9900 #### [facility] [address] [place], [address] Globulin (S) [Mass/Vol] 3.3 g/dL Normal 2.2-4.2 [facility] Comment on above: Performed By: #### L 501.3620, L501.6710, L501.9520, L500.4100, L500.4050, L100.0100, L101.9900 #### [facility] [address] [place], [address] Glucose [Mass/Vol] 102 mg/dL High 70-99 [facility] Comment on above: Performed By: #### L 501.3620, L501.6710, L501.9520, L500.4100, L500.4050, L100.0100, L101.9900 #### [facility] [address] [place], [address] Potassium [Moles/Vol] 3.5 mmol/L Normal 3.3-5.1 [facility] Comment on above: Performed By: #### L 501.3620, L501.6710, L501.9520, L500.4100, L500.4050, L100.0100, L101.9900 #### [facility] [address] [place], [address] Sodium [Moles/Vol] 136 mmol/L Normal 133-145 [facility] Comment on above: Performed By: #### L 501.3620, L501.6710, L501.9520, L500.4100, L500.4050, L100.0100, L101.9900 #### [facility] [address] [place], [address] T PROT 7.9 g/dL Normal 5.9-8.4 [facility] Comment on above: Performed By: #### L 501.3620, L501.6710, L501.9520, L500.4100, L500.4050, L100.0100, L101.9900 #### [facility] [address] [place], [address] Urea nitrogen [Mass/Vol] 21 mg/dL High 4-19 [facility] Comment on above: Performed By: #### L 501.3620, L501.6710, L501.9520, L500.4100, L500.4050, L100.0100, L101.9900 #### [facility] [address] [place], [address] Erythrocyte Sed Rateon 09-27 SED RATE 14 mm/hr Normal 0-30 [facility] Comment on above: Performed By: #### L 501.3620, L501.6710, L501.9520, L500.4100, L500.4050, L100.0100, L101.9900 #### [facility] [address] [place], [address] Lipid Profileon 09-27-2024 CHOL:HDL 4.[address] [facility] Comment on above: Performed By: #### L 501.3620, L501.6710, L501.9520, L500.4100, L500.4050, L100.0100, L101.9900 #### [facility] [address] [place], [address] Cholesterol [Mass/Vol] 200 mg/dL Normal <=200 [facility] Comment on above: Result Comment: Chol esterol level, Desirable <200 mg/dL Borderline high cholesterol 200-239 mg/dL High cholesterol >=240 mg/dL Recommendations of the NCEP Adult Treatment Panel for the following risk-cutoff thresholds for the [place] population. Performed By: #### L 501.3620, L501.6710, L501.9520, L500.4100, L500.4050, L100.0100, L101.9900 #### [facility] [address] [place], [address] Cholesterol in HDL [Mass/Vol] 41 mg/dL Normal [facility] Comment on above: Result Comment: Ofelia onal Cholesterol Education Program (NCEP) guidelines: <40 mg/dL: Low HDL-cholesterol (major risk factor for CHD) >= 60 mg/dL: High HDL-cholesterol (negative risk factor for CHD) HDL-cholesterol is affected by a number of factors, e.g. smoking, exercise, hormones, sex and age. Performed By: #### L 501.3620, L501.6710, L501.9520, L500.4100, L500.4050, L100.0100, L101.9900 #### [facility] [address] [place], [address] Cholesterol in LDL [Mass/Vol] 134 mg/dL Normal [facility] Comment on above: Result Comment: Bord pdpcak=652-449 mg/dL Higher Vubr=216 mg/dL or greater Performed By: #### L 501.3620, L501.6710, L501.9520, L500.4100, L500.4050, L100.0100, L101.9900 #### [facility] [address] [place], [address] Cholesterol in VLDL [Mass/Vol] 25 mg/dL Normal 5-40 [facility] Comment on above: Performed By: #### L 501.3620, L501.6710, L501.9520, L500.4100, L500.4050, L100.0100, L101.9900 #### [facility] [address] [place], [address] Triglyceride [Mass/Vol] 126 mg/dL Normal [facility] Comment on above: Result Comment: The drugs N-Acetylcysteine and Metamizole may falsely depress this assay. Normal range: <150 mg/dL Borderline High: 150-199 mg/dL High: 200-499 mg/dL Very High: >500 mg/dL Performed By: #### L 501.3620, L501.6710, L501.9520, L500.4100, L500.4050, L100.0100, L101.9900 #### [facility] [address] [place], [address] MR/BMS.Bon 09-27-2024 MR/BMS.[facility] [address] [place] [address] OFFICE VISIT Date of Service: 09/27/24 MR#: [id number] Acct: [id number] Name: JENNY CHAVARRIA Rep #: [id number] : 1960 Provider: Dr. Sb vargas MD Age/Sex: 64/F Location: [facility] Status: Signed Intake Vital Signs 09/24/24 05:09 [...] Reasons: Annual/Physical Chief Complaint: no acute concerns Trim Sawyer Required: No Accompanied by: Self Is patient [...] 3 days ago, she presented to the [facility] emergency room with lower abdominal pressure, concern [...] otherwise unremarkable. (more content not included)... Normal [facility] Thyroid Stim Hormone (TSH)on 09-27-2024 TSH 1.030 uIU/mL Normal 0.300-4.200 [facility] Comment on above: Performed By: #### L 501.3620, L501.6710, L501.9520, L500.4100, L500.4050, L100.0100, L101.9900 ####[facility] [address] [place], [place], [id number] Abdomen/Pelvis without Conto n 09-24-2024 Abdomen/Pelvis without Cont [facility] [address] [place], [place] [id number] (045) Abdomen/Pelvis without Cont MR#: [id number] Acct: [id number] Name: JENNY CHAVARRIA Rep #: [id number] : 1960 F 64 From: Sybil Kelly nd, [place] PCP: Dr. Sb Ann MD Status: REG ER Study: Abdomen/Pelvis without Cont Date of Exam: 09/12 06/06 Exam# [id number] Ordering Dr: Alphonse Lowry DO PROCEDURE: ABDOMEN/PELVIS [...] IMPRESSION: No acute abdominopelvic finding. Reading Location: [facility] CC: Dr. Alphonse Lowry DO; Dr. Sb Ann MD Epic Analyst: Signed Normal [facility] Absolute lymphocyte countOrd ered By: Alphonse Lowry on 09-24-2024 Lymphocytes Auto (Unsp spec) [#/Vol] 1.62 10*3/uL 0.83-4.51 [facility] Absolute neutrophil countOrd ered By: Alphonse Lowry on 09-24-2024 Neutrophils (Bld) [#/Vol] 6.0 10*3/uL 2.0-7.7 [facility] Anion gap in Serum or Plasma Ordered By: Alphonsevilma Lowry on 09-24-2024 Anion gap [Moles/Vol] 15 mmol/L - [facility] Automated lymphocyte count a s percentage of total leukocytesOrdered By: Alphonsevilma Lowry on 09-24-2024 Lymphocytes/100 WBC Auto (Unsp spec) 19.7 % [facility] BUN/creatinine ratioOrdered By: [facility]han[facility] on 09-24-2024 Urea nitrogen/Creatinine [Mass ratio] 18.7 mg/mg - [facility] Basic Metabolic Profile (BMP )on 09-24-2024 BUN/CRE 18.7 RATIO Normal - [facility] Comment on above: Performed By: #### L 500.2500, L100.0100 ####[facility] [address] [place], [address] Calcium [Mass/Vol] 9.1 mg/dL Normal 7.6-11.0 [facility] Comment on above: Performed By: #### L 500.2500, L100.0100 ####[facility] [address] [place], [address] Chloride [Moles/Vol] 103 mmol/L Normal 98-108 [facility] Comment on above: Performed By: #### L 500.2500, L100.0100 ####[facility] [address] [place], [address] CO2 [Moles/Vol] 16.9 mmol/L Low 21.0-32.0 [facility] Comment on above: Performed By: #### L 500.2500, L100.0100 ####[facility] [address] [place], [address] Creatinine [Mass/Vol] 0.78 mg/dL Normal 0.70-1.20 [facility] Comment on above: Performed By: #### L 500.2500, L100.0100 ####[facility] [address] [place], [address] ECRCL 75.81 ml/min Normal 50-250 [facility] Comment on above: Performed By: #### L 500.2500, L100.0100 ####[facility] [address] [place], [address] GAP 15 Normal 5-15 [facility] Comment on above: Performed By: #### L 500.2500, L100.0100 ####[facility] [address] [place], [address] GFR/1.73 sq M.predicted among non-blacks MDRD (S/P/Bld) [Vol rate/Area] 84 mL/min/{1.73_m2} Normal >60 [facility] Comment on above: Result Comment: mL/m in/1.73m2 CKD-EPI Creatinine Equation (2020) Performed By: #### L 500.2500, L100.0100 ####[facility] [address] [place], [address] Glucose [Mass/Vol] 104 mg/dL High 70-99 [facility] Comment on above: Performed By: #### L 500.2500, L100.0100 ####[facility] [address] [place], [address] Potassium [Moles/Vol] 4.2 mmol/L Normal 3.3-5.1 [facility] Comment on above: Result Comment: Hemo lysis present, Results??could be affected. ?? Performed By: #### L 500.2500, L100.0100 ####[facility] [address] [place], [address] Sodium [Moles/Vol] 134 mmol/L Normal 133-145 [facility] Comment on above: Performed By: #### L 500.2500, L100.0100 ####[facility] [address] [place], [address] Urea nitrogen [Mass/Vol] 15 mg/dL Normal 4-19 [facility] Comment on above: Performed By: #### L 500.2500, L100.0100 ####[facility] [address] [place], [address] Basophil percentageOrdered B y: Alphonse Lowry on 09-24-2024 Basophils/100 WBC (Bld) 0.2 % 0-1 [facility] Bilirubin Test strip Ql (U)O rdered By: Alphonse Lowry on 09-24-2024 Bilirubin Ql (U) Negative Negative [facility] CBC W/Diff, Automatedon 09-12-2024 Absolute Lymph 1.62 X10 3/uL Normal 0.83-4.51 [facility] Comment on above: Performed By: #### L 500.2500, L100.0100 ####[facility] [address] [place], [address] Absolute Neut 6.0 X10 3/uL Normal 2.0-7.7 [facility] Comment on above: Performed By: #### L 500.2500, L100.0100 ####[facility] [address] [place], [address] Basophils/100 WBC (Bld) 0.2 % Normal 0-1 [facility] Comment on above: Performed By: #### L 500.2500, L100.0100 ####[facility] [address] [place], [address] Eosinophils/100 WBC (Bld) 0.7 % Normal 0-5 [facility] Comment on above: Performed By: #### L 500.2500, L100.0100 ####[facility] [address] [place], [address] Erythrocyte distribution width (RBC) [Ratio] 12.8 % Normal 11.6-14.6 [facility] Comment on above: Performed By: #### L 500.2500, L100.0100 ####[facility] [address] [place], [address] Hematocrit (Bld) [Volume fraction] 42.3 % Normal 37-47 [facility] Comment on above: Performed By: #### L 500.2500, L100.0100 ####[facility] [address] [place], [address] Hemoglobin (Bld) [Mass/Vol] 14.1 g/dL Normal 12.0-15.0 [facility] Comment on above: Performed By: #### L 500.2500, L100.0100 ####[facility] [address] [place], [address] IG% 0.100 Normal 0.0-0.9 [facility] Comment on above: Result Comment: IG% - Immature Granulocytes (promyelocytes, myelocytes and metamyelocytes) > 1% indicates that a LEFT SHIFT is Present. Performed By: #### L 500.2500, L100.0100 ####[facility] [address] [place], [address] Lymphocytes/100 WBC (Bld) 19.7 % Normal 19-41 [facility] Comment on above: Performed By: #### L 500.2500, L100.0100 ####[facility] [address] [place], [address] MCH (RBC) [Entitic mass] 29.4 pg Normal 27.0-32.0 [facility] Comment on above: Performed By: #### L 500.2500, L100.0100 ####[facility] [address] [place], [address] MCHC (RBC) [Mass/Vol] 33.3 g/dL Normal 32-36 [facility] Comment on above: Performed By: #### L 500.2500, L100.0100 ####[facility] [address] [place], [address] MCV (RBC) [Entitic vol] 88.3 fL Normal 81-99 [facility] Comment on above: Performed By: #### L 500.2500, L100.0100 ####[facility] [address] [place], [address] Monocytes/100 WBC (Bld) 5.6 % Normal 0-10 [facility] Comment on above: Performed By: #### L 500.2500, L100.0100 ####[facility] [address] [place], [address] Neutrophils/100 WBC (Bld) 73.7 % High 47-70 [facility] Comment on above: Performed By: #### L 500.2500, L100.0100 ####[facility] [address] [place], [address] Nucleated RBC (Bld) [#/Vol] 0 10*3/uL Normal 0-5 [facility] Comment on above: Performed By: #### L 500.2500, L100.0100 ####[facility] [address] [place], [address] Platelet mean volume (Bld) [Entitic vol] 10.3 fL Normal 6.2-12.0 [facility] Comment on above: Performed By: #### L 500.2500, L100.0100 ####[facility] [address] [place], [address] Platelets (Bld) [#/Vol] 300 10*3/uL Normal 150-450 [facility] Comment on above: Performed By: #### L 500.2500, L100.0100 ####[facility] [address] [place], [address] RBC (Bld) [#/Vol] 4.79 10*6/uL Normal 4.2-5.4 [facility] Comment on above: Performed By: #### L 500.2500, L100.0100 ####[facility] [address] [place], [address] RDW SD 41.3 fl Normal 35.1-43.9 [facility] Comment on above: Performed By: #### L 500.2500, L100.0100 ####[facility] [address] [place], [address] WBC (Bld) [#/Vol] 8.2 10*3/uL Normal 4.4-11.0 [facility] Comment on above: Performed By: #### L 500.2500, L100.0100 ####[facility] [address] [place], [address] Carbon dioxide, total [Moles /volume] in Central venous bloodOrdered By: Alphonse Lowry on 09-24-2024 CO2 [Moles/Vol] 16.9 mmol/L Low 21.0-32.0 [facility] Chloride assayOrdered By: Joo Lowry on 09-24-2024 Chloride [Moles/Vol] 103 mmol/L 98-108 [facility] Emergency Department Summary on 09-24-2024 Emergency Department Summary [facility] Medical Records Department [address] [place] [address] Emergency Department Summary 09/24/24 MR#: [id number] Acct: [id number] Name: JENNY CHAVARRIA Rep #: [id number] : 1960 64 From: Alphonse Lowry DO [...] intact Psych: Cooperative, appropriate mood and affect [facility] History Elevated low density lipoprotein (LDL) [...] (Auto) 73.7 H Lymph % (Auto) 19.7 [place] % (Auto) 5.6 Eos % (Auto) 0.7 Baso % (Auto) 0. (more content not included)... Normal [facility] Eosinophil percentageOrdered By: Alphonse Lowry on 09-24-2024 Eosinophils/100 WBC (Bld) 0.7 % 0-5 [facility] Erythrocyte distribution wid th ratioOrdered By: Alphonse Alen on 09-24-2024 Erythrocyte distribution width (RBC) [Ratio] 12.8 % 11.6-14.6 [facility] Erythrocyte distribution wid th standard deviationOrdered By: Ann [facility] Centersamuel Cassidy on 09-24-2024 Erythrocyte distribution width (RBC) [Ratio] 41.3 fl 35.1-43.9 [facility] Glomerular filtration rate ( GFR) estimation/1.73 sq m using serum, plasma, or whole bOrdered By: Alphonse Lowry on 09-24-2024 GFR/1.73 sq M.predicted among non-blacks MDRD (S/P/Bld) [Vol rate/Area] 84 mL/min/{1.73_m2} >60 [facility] Comment on above: mL/min/1.73m2 CKD-EP I Creatinine Equation (2020) Hematocrit Auto (Bld) [Volum e fraction]Ordered By: Alphonse Lowry on 09-24-2024 Hematocrit (Bld) [Volume fraction] 42.3 % 37-47 [facility] Hemoglobin measurementOrdere d By: Alphonse Lowry on 09-24-2024 Hemoglobin (Bld) [Mass/Vol] 14.1 g/dL 12.0-15.0 [facility] Immature granulocytes/100 WB C Auto (Bld)Ordered By: Alphonse Lowry on 09-24-2024 Immature granulocytes/100 WBC (Bld) 0.100 % 0.0-0.9 [facility] Comment on above: IG% - Immature Granu locytes (promyelocytes, myelocytes and metamyelocytes) > 1% indicates that a LEFT SHIFT is Present. Ketones Test strip Ql (U)Ord ered By: Alphonse Lowry on 09-24-2024 Ketones Ql (U) Negative Negative [facility] MCV (mean corpuscular volume ) determinationOrdered By: Alphonse Lowry on 09-24-2024 MCV (RBC) [Entitic vol] 88.3 fL 81-99 [facility] Mean corpuscular hemoglobin (MCH) determinationOrdered By: Alphonse Lowry on 09-24-2024 MCH (RBC) [Entitic mass] 29.4 pg 27.0-32.0 [facility] Mean corpuscular hemoglobin concentration (MCHC) determinationOrdered By: Alphonse Lowry on 09-24-2024 MCHC (RBC) [Mass/Vol] 33.3 g/dL 32-36 [facility] Mean platelet volume determi nationOrdered By: Alphonse Lowry on 09-24-2024 Platelet mean volume (Bld) [Entitic vol] 10.3 fL 6.2-12.0 [facility] Microscopic analysis of urin e for red blood cells (RBC)Ordered By: Alphonse Lowry on 09-24-2024 Microscopic analysis of urine for red blood cells (RBC) 0 SEEN /hpf 0-5 [facility] Monocyte percentageOrdered B y: Alphonse Lowry on 09-24-2024 Monocytes/100 WBC (Bld) 5.6 % 0-10 [facility] Mucus LM Ql (Urine sed)Order ed By: Alphonse Lowry on 09-24-2024 Mucus Ql (Urine sed) 0 SEEN /hpf [facility] Neutrophil percentageOrdered By: Alphonse Lowry on 09-24-2024 Neutrophils/100 WBC (Bld) 73.7 % High 47-70 [facility] Nitrite Test strip Ql (U)Ord ered By: Alphonse Lowry on 09-24-2024 Nitrite Ql (U) Negative Negative [facility] Nucleated red blood cell per centageOrdered By: Alphonse Lowry on 09-24-2024 Nucleated RBC/100 WBC (Bld) [Ratio] 0 % 0-5 [facility] Platelet countOrdered By: Joo Lowry on 09-24-2024 Platelets (Bld) [#/Vol] 300 10*3/uL 150-450 [facility] Potassium measurement (mass/ volume)Ordered By: Alphonse Lowry on 09-24-2024 Potassium (Unsp spec) [Mass/Vol] 4.2 mmol/L 3.3-5.1 [facility] Comment on above: Hemolysis present, R esults could be affected. Protein Test strip Ql (U)Ord ered By: Alphonse Lowry on 09-24-2024 Protein Ql (U) 30 mg/dl High Negative [facility] RBC Auto (Bld) [#/Vol]Ordere d By: Alphonse Lowry on 09-24-2024 RBC (Bld) [#/Vol] 4.79 10*6/uL 4.2-5.4 [facility] Serum creatinine measurement (mass/volume)Ordered By: Alphonse Lowry on 09-24-2024 Creatinine [Mass/Vol] 0.78 mg/dL 0.70-1.20 [facility] Serum glucose measurement (m ass/volume)Ordered By: Alphonse Lowry on 09-24-2024 Glucose [Mass/Vol] 104 mg/dL High 70-99 [facility] Serum or plasma calcium michael urement (mass/volume)Ordered By: Alphonse Cassidy on 09-24-2024 Calcium [Mass/Vol] 9.1 mg/dL 7.6-11.0 [facility] Serum or plasma urea nitroge n measurement (mass/volume)Ordered By: Alphonse Lowry on 09-24-2024 Urea nitrogen [Mass/Vol] 15 mg/dL 4-19 [facility] Sodium levelOrdered By: Regan Lowry on 09-24-2024 Sodium [Moles/Vol] 134 mmol/L 133-145 [facility] Squamous epithelial cells de tection in urine sediment by light microscopyOrdered By: Alphonse Lowry on 09-24-2024 Epithelial cells.squamous LM Ql (Urine sed) 0-5 SEEN /hpf 5-10 [facility] Urinalysis, Completeon 09-24 EPI,SQUAMOUS 0-5 SEEN Normal 5-10 [facility] Comment on above: Order Comment: MOISES CTOR TO SPECIFY Performed By: #### L 400.0001 #### [facility] [address] [place], [address] BACTERIA 0 SEEN Normal None Seen [facility] Comment on above: Order Comment: MOISES CTOR TO SPECIFY Performed By: #### L 400.0001 #### [facility] [address] [place], [address] Mucus Ql (Urine sed) 0 SEEN Normal [facility] Comment on above: Order Comment: MOISES CTOR TO SPECIFY Performed By: #### L 400.0001 #### [facility] [address] [place], [address] RBC 0 SEEN Normal 0-5 [facility] Comment on above: Order Comment: MOISES CTOR TO SPECIFY Performed By: #### L 400.0001 #### [facility] [address] [place], [address] WBC 0 SEEN Normal 0-5 [facility] Comment on above: Order Comment: MOISES CTOR TO SPECIFY Performed By: #### L 400.0001 #### [facility] [address] [place], [address] Urine clarityOrdered By: Aristeo Lowry on 09-24-2024 Clarity (U) Clear Clear [facility] Urine color determinationOrd ered By: Alphonse Lowry on 09-24-2024 Color (U) Yellow Yellow [facility] Urine glucose detectionOrder ed By: Alphonse Lowry on 09-24-2024 Glucose Ql (U) Normal mg/dl Normal [facility] Urine leukocyte esterase det ection by dipstickOrdered By: Alphonse Lowry on 09-24-2024 Leukocyte esterase Test strip Ql (U) Negative Negative [facility] Urine pHOrdered By: Alphonse Jose Roberto adamsDari on 09-24-2024 pH (U) 6.5 [pH] 5.0 - 8.0 [facility] Urine sediment bacteria coun t by microscopy (number/high power field)Ordered By: Alphonse Lowry on 09-24-2024 Bacteria LM.HPF (Urine sed) [#/Area] 0 /[HPF] None Seen [facility] Urine specific gravity measu rementOrdered By: Ann [facility] CentersamuelKhanh on 09-24-2024 Specific gravity (U) [Rel density] 1.015 1.002-1.030 [facility] Urine urobilinogen measureme ntOrdered By: Alphonse Jose RobertoDat on 09-24-2024 Urobilinogen Ql (U) 1 mg/dl High Normal [facility] White blood cell (WBC) count Ordered By: Alphonse MelloEdu on 09-24-2024 WBC (Bld) [#/Vol] 8.2 10*3/uL 4.4-11.0 [facility] White blood cell countOrdere d By: Alphonsevilma SarkarEdu on 09-24-2024 White blood cell count 0 SEEN /hpf 0-5 [facility] US DVT LOWER LTon 09-21-2024 US DVT [...] imaged segments of the left lower extremity. Epic Analyst: JOHANNA Transcribe Date/Time: Sep 21 2024 8:13A Dictated by : TOMMIE CLARK MD This examination was interpreted and the report reviewed and electronically signed by: TOMMIE CLARK MD on Sep 21 2024 8:14AM EST [id number] Normal [facility] US Lower extremity vein - le fton 09-21-2024 IMPRESSION: Negative study for proximal DVT in the left lower extremity. Negative study for calf DVT in the left lower extremity. Negative study for superficial thrombophlebitis in the imaged segments of the left lower extremity. Epic Analyst: [facility] Transcribe Date/Time: Sep 21 2024 8:13A Dictated by : TOMMIE CLARK MD This examination was interpreted and the report reviewed and electronically signed by: TOMMIE CLARK MD on Sep 21 2024 8:14AM EST [facility] SYN[facility] * * *Final Report* * [...] spontaneous respirophasic flow. Normal response to augmentation. [facility] Provider, [facility] - 09/21/2024 * * *Final [...] imaged segments of the left lower extremity. Epic Analyst: PSCB Transcribe Date/Time: Sep 21 2024 8:13A Dictated by : TOMMIE CLARK MD This examination was interpreted and the report reviewed and electronically signed by: TOMMIE CLARK MD on Sep 21 2024 8:14AM EST [facility] Radiology Study observation (narrative) [facility] US Lower extremity vein - le ftOrdered By: Ccf Provider on 09-21-2024 [facility] CNOVon 09-19-2024 CNOV Office Visit ([facility]OU[facility]) JENNY CHAVARRIA ([id number]) 1960 F Date Time Provider Department 09/19/24 [...] lower extremity [M79.605] Order(s):US DVT LOWER LEFT [2310009] Order #: [id number] FUTURE sulfamethoxazole-trime thoprim (BACTRIM DS) 800-160 mg [...] Service: OFFICE/OUTPATIENT NEW MODERATE MDM 45 MINUTES [05312] Encounter Status:Closed by EMILY LIMA on 09/19/24 Normal [facility] Breast Screeningon 2023 [facility] Basophil percentageOrdered B y: Justin Kelly on 04-24-2022 Chloride [Moles/Vol] 109 mmol/L 98-107 [facility] Glucose [Mass/Vol] 89 mg/dL 74-106 [facility] Potassium [Moles/Vol] 3.8 mmol/L 3.5-5.1 [facility] Sodium [Moles/Vol] 141 mmol/L 136-145 [facility] WBC (Bld) [#/Vol] 7.6 10*3/uL 4.4-11.0 [facility] Blood erythrocytes count (nu mber/volume)Ordered By: Justin Kelly on 04-24-2022 RBC (Bld) [#/Vol] 4.75 10*6/uL 4.2-5.4 [facility] Blood hemoglobin measurement (mass/volume)Ordered By: Justin Kelly on 04-24-2022 Hemoglobin (Bld) [Mass/Vol] 14.2 g/dL 12.0-15.0 [facility] Blood platelet mean volumeOr dered By: Justin Kelly on 04-24-2022 Platelet mean volume (Bld) [Entitic vol] 10.6 fL 6.2-12.0 [facility] Determination of erythrocyte mean corpuscular volume (MCV)Ordered By: Justin Kelly on 04-24-2022 MCV (RBC) [Entitic vol] 89.9 fL 81-99 [facility] Hematocrit Auto (Bld) [Volum e fraction]Ordered By: Justin Kelly on 04-24-2022 Hematocrit (Bld) [Volume fraction] 42.7 % 37-47 [facility] - Chemistry and C hemistry - challengeOrdered By: Justin Kelly on 04-24-2022 CO2 [Moles/Vol] 26.0 mmol/L 21.0-32.0 [facility] Urea nitrogen/Creatinine [Mass ratio] 28.7 mg/mg 10-20 [facility] - Hematology and Cell countsOrdered By: Justin Kelly on 04-24-2022 Erythrocyte distribution width (RBC) [Entitic vol] 42.4 fL 35.1-43.9 [facility] Erythrocyte distribution width (RBC) [Ratio] 12.7 % 11.6-14.6 [facility] MCH (RBC) [Entitic mass] 29.9 pg 27.0-32.0 [facility] MCHC Auto (RBC) [Mass/Vol]Or dered By: Justin Kelly on 04-24-2022 MCHC (RBC) [Mass/Vol] 33.3 g/dL 32-36 [facility] No Panel InformationOrdered By: Justin Kelly on 04-24-2022 Estimated GFR (MDRD) Amer 98 mL/min >60 [facility] Comment on above: GFR Calc Estimated GFR (MDRD) Non-Af Amer 81 mL/min >60 [facility] Comment on above: Non- GFR Calc Platelets bldOrdered By: Bartolome Kelly on 04-24-2022 Platelets (Bld) [#/Vol] 219 10*3/uL 150-450 [facility] Serum or plasma calcium michael urement (mass/volume)Ordered By: Justin Kelly on 04-24-2022 Calcium [Mass/Vol] 9.1 mg/dL 8.5-10.1 [facility] Serum or plasma creatinine m easurement (mass/volume)Ordered By: Justin Kelly on 04-24-2022 Creatinine [Mass/Vol] 0.77 mg/dL 0.55-1.02 [facility] Comment on above: The validity of the calculated GFR & GFRAA in patients over 70 years has not been determined. Clinical correlation is essential. Serum or plasma urea nitroge n measurement (mass/volume)Ordered By: Justin Kelly on 04-24-2022 Urea nitrogen [Mass/Vol] 22 mg/dL 7-18 [facility] Thin prep Papanicolaou smear with manual screeningOrdered By: Justin Kelly on 04-24-2022 Thin prep Papanicolaou smear with manual screening 6 5-15 [facility] AFSHAN SCREENINGon 04-08-2022 [facility] Vital Signs Date Time Vital Sign Value Performing Clinician Facility 09-27-2024 11:35-0400 Body height 177.[address] Sb Ann MD Work Phone: [facility] 09-27-2024 11:35-0400 Body mass index (BMI) [Ratio] 25.7 kg/m2 Dr. Sb Ann MD Work Phone: [facility] 09-27-2024 11:35-0400 Body temperature 97.8 [degF] Dr. Sb Ann MD Work Phone: [facility] 09-27-2024 11:35-0400 Body weight 81.[address] Sb Ann MD Work Phone: [facility] 09-27-2024 11:35-0400 Diastolic blood pressure 86 mm[Hg] Dr. Sb Ann MD Work Phone: [facility] 09-27-2024 11:35-0400 Heart rate 104 /min Dr. Sb Ann MD Work Phone: [facility] 09-27-2024 11:35-0400 Respiratory rate 16 /min Dr. Sb Ann MD Work Phone: [facility] 09-27-2024 11:35-0400 SaO2% (BldA) [Mass fraction] 96 % Dr. Sb Ann MD Work Phone: [facility] 09-27-2024 11:35-0400 Systolic blood pressure 119 mm[Hg] Dr. Sb Ann MD Work Phone: [facility] 09-24-2024 07:57-0400 Body temperature 98.7 [degF] Dr. Sb Ann MD Work Phone: [facility] 09-24-2024 07:57-0400 Diastolic blood pressure 84 mm[Hg] Dr. Sb Ann MD Work Phone: [facility] 09-24-2024 07:57-0400 Heart rate 66 /min Dr. Sb Ann MD Work Phone: [facility] 09-24-2024 07:57-0400 Respiratory rate 15 /min Dr. Sb Ann MD Work Phone: [facility] 09-24-2024 07:57-0400 SaO2% (BldA) [Mass fraction] 97 % Dr. Sb Ann MD Work Phone: [facility] 09-24-2024 07:57-0400 Systolic blood pressure 125 mm[Hg] Dr. Sb Ann MD Work Phone: [facility] 09-24-2024 05:09-0400 Body height 177.[address] Sb Ann MD Work Phone: [facility] 09-24-2024 05:09-0400 Body mass index (BMI) [Ratio] 25.4 kg/m2 Dr. Sb Ann MD Work Phone: [facility] 09-24-2024 05:09-0400 Body weight 80.[address] Sb Ann MD Work Phone: [facility] 09-19-2024 17:29-0400 Body mass index (BMI) [Ratio] 27.8 kg/m2 Emily Lima MD Work Phone: [facility] 09-19-2024 17:29-0400 Body temperature 98.49 [degF] Emily Lima MD Work Phone: [facility] 09-19-2024 17:29-0400 Body weight 86 kg Emily Lima MD Work Phone: [facility] 09-19-2024 17:29-0400 Diastolic blood pressure 72 mm[Hg] Emily Lima MD Work Phone: [facility] 09-19-2024 17:29-0400 Heart rate 74 /min Emily Lima MD Work Phone: [facility] 09-19-2024 17:29-0400 Respiratory rate 16 /min Emily Lima MD Work Phone: [facility] 09-19-2024 17:29-0400 SaO2% (BldA) [Mass fraction] 99 % Emily Lima MD Work Phone: [facility] 09-19-2024 17:29-0400 Systolic blood pressure 122 mm[Hg] Emily Lima MD Work Phone: [facility] 10-26-2022 07:37-0400 Body temperature 97.9 [degF] [facility] [employer]AT[employer] PROJECT MANAGER Work Phone: [facility] 10-26-2022 07:37-0400 Body weight 87.09 kg [facility] [employer]CREATIVE PROJECT MANAGER Work Phone: [facility] 10-26-2022 07:37-0400 Diastolic blood pressure 70 mm[Hg] [facility] [employer]ATIVE PROJECT MANAGER Work Phone: [facility] 10-26-2022 07:37-0400 Heart rate 74 /min [facility] [employer].CREATIVE PROJECT MANAGER Work Phone: [facility] 10-26-2022 07:37-0400 Respiratory rate 16 /min [facility] [employer].CREATIVE PROJECT MANAGER Work Phone: [facility] 10-26-2022 07:37-0400 SaO2% (BldA) [Mass fraction] 95 % [facility] [employer].CREATIVE PROJECT MANAGER Work Phone: [facility] 10-26-2022 07:37-0400 Systolic blood pressure 124 mm[Hg] [facility] [employer].CREATIVE PROJECT MANAGER Work Phone: [facility] 03-30-2022 07:02-0500 Body height 175.9 cm Sarah Lone Jack [employer]CREATIVE PROJECT MANAGER Work Phone: [facility] 03-30-2022 07:02-0500 Body weight 83.83 kg Sarah Karen [employer]ATIVE PROJECT MANAGER Work Phone: [facility] 03-30-2022 07:02-0500 Diastolic blood pressure 64 mm[Hg] Sarah Karen [employer].CREATIVE PROJECT MANAGER Work Phone: [facility] 03-30-2022 07:02-0500 Systolic blood pressure 110 mm[Hg] Sarha Lone Jack [employer].CREATIVE PROJECT MANAGER Work Phone: [facility] 11-26-2021 08:04-0400 Body temperature 97.4 [degF] Dr. Sb Ann Work Phone: [facility] Work Phone: 11-26-2021 08:04-0400 Body weight 82.[address] Sb Ann Work Phone: [facility] Work Phone: 11-26-2021 08:04-0400 Diastolic blood pressure 77 mm[Hg] Dr. Sb Ann Work Phone: [facility] Work Phone: 11-26-2021 08:04-0400 Heart rate 70 /min Dr. Sb Ann Work Phone: [facility] Work Phone: 11-26-2021 08:04-0400 Respiratory rate 16 /min Dr. Sb Ann Work Phone: [facility] Work Phone: 11-26-2021 08:04-0400 SaO2% (BldA) [Mass fraction] 93 % Dr. Sb Ann Work Phone: [facility] Work Phone: 11-26-2021 08:04-0400 Systolic blood pressure 127 mm[Hg] Dr. Sb Ann Work Phone: [facility] Work Phone: Encounters Encounter Date Encounter Type Care Provider Facility Start: 09-27-2024 Encounter for genera l adult medical examination without abnormal findings Sb Enrique [facility] Start: 09-27-[address] Sb Ann MD -Laboratory Work Phone: Start: 09-27-2024 ambulatory Sb Ann Facility :[facility] Start: 09-27-2024 End: 09-27-[address] Sb Ann MD -[facility] Work Phone: Start: 09-27-2024 End: 09-27-[address] Sb Ann MD [facility] Start: 09-27-2024 End: 09-27-[address] Sb Ann MD Work Phone: -[facility] Start: 09-24-2024 End: 09-24-2024 Emergency department patient visit Dr. Sb Ann MD Work Phone: -Emergency Department Work Phone: Start: 09-21-2024 ambulatory EMILY LIMA Facility :[facility] Start: 09-21-2024 End: 09-21-2024 Subsequent hospital visit by physician [facility] Comment on above: Rash [R21] Start: 09-19-2024 End: 09-19-2024 Office outpatient new 45 minutes Emily Lima MD Work Phone: [facility] Comment on above: Cellulitis of skin ( Primary Dx); Rash; Pain of left lower extremity Start: 09-19-2024 End: 09-19-2024 ambulatory SB ANN Facility:[facility] Start: 04-23-2023 Documentation procedure [facility]og [facility] Start: 04-23-2023 Letter encounter Mammography Coordinator [facility] Department Start: 04-23-2023 End: 04-23-2023 Subsequent hospital visit by physician Screen Mammo [facility] Comment on above: Encounter for screen ing mammogram for malignant neoplasm of breast [Z12.31] Start: 10-26-2022 End: 10-26-2022 Office outpatient visit 15 minutes Anthony Anderson APRN.CNP Work Phone: [facility] Comment on above: Acute otitis externa of left ear, unspecified type (Primary Dx) Start: 04-24-2022 End: 04-24-2022 Non-patient / Non-visit Dr. Sb Ann Work Phone: [facility] Start: 04-24-2022 End: 04-24-[address] Sb Ann Work Phone: [facility] Work Phone: Start: 04-24-2022 End: 04-24-[address] Sb Ann Work Phone: [facility]-Pulmonary Services/Neurology Start: 04-09-2022 Documentation procedure Mammog abraham Coordinator [facility] Start: 04-09-2022 Letter encounter Mammography Coordinator [facility] Department Start: 04-08-2022 End: 04-08-2022 Subsequent hospital visit by physician Screen Mammo [facility] Comment on above: Encounter for [...] 03-13-[address] Sb Ann Work Phone: [facility] Work Phone: Start: 03-13-2022 End: 03-13-[address] Sb Ann Work Phone: [facility] Start: 11-26-[address] Consuelo Ann Work Phone: [facility] Start: 11-26-2021 End: 11-26-2021 Encounter for general adult medical examination without abnormal findings Dr. Sb Ann Work Phone: [facility] Start: 11-26-2021 End: 11-26-[address] Sb Ann Work Phone: [facility] Procedures Date Procedure Procedure Detail Performing [...] Phone: Start: 04-08-2022 End: 04-08-2022 Mammography Sarah Lone Jack [employer] ASSOCIATE SOFTWARE ENGINEER Work Phone: Start: 03-13-2022 MRI of joint of lowe r extremity Dr. Sb Ann Work Phone: Start: 07-01-2020 Mammography Sarah Met gurmeet [employer]ATH [employer].CREATIVE PROJECT MANAGER Work Phone: Start: 06-28-2020 Lipid 1996 panel - S farhan or Plasma Screen Ws Plan of Treatment Date Care Activity Detail Author Start: 2034 RSV Vaccine (1 - 1-d ose 75+ series) RSV Vaccine (1 - 1-dose 75+ series) [facility] Start: 06-28-2025 Lipid 1996 panel - S farhan or Plasma Lipid Screening [facility] Start: 06-28-2025 Lipid panel Lipid Screening [facility] Start: 06-28-2025 LIPID SCREEN LIPID SCREEN [facility] Start: 06-25-2025 HPV TESTING HPV TESTING [facility] Start: 06-25-2025 PAP TESTING PAP TESTING [facility] Start: 06-25-2025 Screening for malign ant neoplasm of cervix [facility] Start: 11-13-2024 Influenza vaccination Influenza Vacc ine (#1) [facility] Start: 09-27-2024 C reactive protein [Mass/volume] in Serum or Plasma [facility] Start: 09-27-2024 CBC W Auto Different ial panel - Blood [facility] Start: 09-27-2024 Comprehensive metabo lic 2000 panel - Serum or Plasma [facility] Start: 09-27-2024 Creatine kinase [Enz ymatic activity/volume] in Serum or Plasma [facility] Start: 09-27-2024 Erythrocyte sediment ation rate [facility] Start: 09-27-2024 Lipid 1996 panel - S farhan or Plasma [facility] Start: 09-27-2024 Thyroid stimulating hormone measurement [facility] Start: 09-24-2024 [facility] Start: 09-21-2024 End: 09-21-2024 Patient encounter procedure 09/21/2024 7:30 AM EDT Appointment [facility] [address] [place] [address] Rash [R21]; Pain of left lower extremity [M79.605] [facility] Comment on above: Rash [R21]; Pain of left lower extremity [M79.605] Start: 09-20-2024 End: 10-19-2025 US Lower extremity vein - left US DVT LOWER LEFT Radiology STAT Rash Pain of left lower extremity Expected: 09/20/2024, Expires: 10/19/2025 [facility] Work Phone: Comment on above: Expected: 09/20/2024 , Expires: 10/19/2025 Start: 04-23-2024 Screening for malign ant neoplasm of breast Mammogram Screening [facility] Start: 03-15-2024 Advance Directive Discussion Advance Directive Discussion [facility] Start: 02-15-2024 Screening for osteoporosis Bone Dens ity Screening [facility] Start: 11-14-2023 Covid-19 Vaccine ( season) Covid-19 Vaccine () [facility] Start: 06-29-2023 DIABETES SCREEN DIABETES SCREEN [facility] Start: 06-29-2023 Diabetes Screening Diabetes Screenin g [facility] Start: 04-08-2023 Mammography [facility] Start: 03-15-2023 Depression Assessment Depression Ass essment [facility] Start: 11-13-2022 Influenza vaccination [facility] Start: 03-15-2022 DEPRESSION ASSESSMENT DEPRESSION ASS ESSMENT [facility] Start: 11-13-2021 Influenza vaccination INFLUENZA (#1) [facility] Start: 07-01-2021 Mammography MAMMOGRAM [facility] Start: 2019 RSV Vaccine (1 - 1-d ose 60+ series) RSV Vaccine (1 - 1-dose 60+ series) [facility] Start: 01-08-2018 Urine microalbumin profile DTa P,Tdap,Td Vaccine (2 - Td or Tdap) [facility] Start: 2009 Pneumococcal Vaccine : 50+ (1 of 1 - PCV) Pneumococcal Vaccine: 50+ (1 of 1 - PCV) [facility] Start: 2009 SHINGRIX VACCINE (1 of 2) DIAMOND GRIX VACCINE (1 of 2) [facility] Start: 02-15-2004 COLOGUARD (FIT-DNA) COLOGUARD (FIT-D NA) [facility] Start: 02-15-2004 Colonoscopy COLONOSCOPY [facility] Start: 02-15-2004 COLORECTAL CANCER SCREENING COLORECTAL CANCER SCREENING [facility] Start: 02-15-[address] [facility] Start: 02-15-2004 FECAL OCCULT BLOOD FECAL OCCULT BLOO D [facility] Start: 02-15-2004 Screening for malign ant neoplasm of colon [facility] Start: 02-15-2004 SIGMOIDOSCOPY SIGMOIDOSCOPY [facility] Start: 1978 Urine microalbumin profile DTAP,TDAP ,TD (1 - Tdap) [facility] Start: 1977 Anxiety Screening Anxiety Screening [facility] Start: 1977 Depression Screening Depression Scre ening [facility] Start: 1977 HEPATITIS C SCREENING HEPATITIS C [facility] Start: 1977 Hepatitis C screening Hepatitis C [facility] Start: 1977 HIV SCREENING HIV SCREENING [facility] Start: 1977 HIV screening HIV Screening [facility] Start: 1959 COVID-19 VACCINE (#1) COVID-19 VACCI NE (#1) [facility] Alanine aminotransfe rase [Enzymatic activity/volume] in Serum or Plasma [facility] Albumin [Mass/volume ] in Serum or Plasma [facility] Alkaline phosphatase [Enzymatic activity/volume] in Serum or Plasma [facility] Anion gap in Serum o r Plasma [facility] Bilirubin, total measurement [facility] BUN/Creatinine ratio [facility] Calcium [Mass/volume ] in Serum or Plasma [facility] Carbon dioxide, tota l [Moles/volume] in Central venous blood [facility] Cholesterol [Mass/vo lume] in Serum or Plasma [facility] Cholesterol in HDL [Mass/volume] in Serum or Plasma [facility] Creatinine [Mass/vol ume] in Serum or Plasma [facility] Erythrocyte mean corpuscular volume determination [facility] Glucose [Mass/volume ] in Serum or Plasma [facility] Hematocrit [Volume Fraction] of Blood [facility] Hemoglobin [Mass/vol ume] in Blood [facility] Leukocytes [#/volume ] in Blood [facility] Low density lipoprot ein cholesterol measurement [facility] End: 04-29-2023 AFSHAN SCREENING AFSHAN SCREENING Radiology Routine Encounter for screening mammogram for breast cancer 1 Occurrences starting 03/30/2022 until 04/29/2023 [facility] Work Phone: Comment on above: 1 Occurrences starti ng 03/30/2022 until 04/29/2023 Mean corpuscular hemoglobin concentration determination [facility] Mean corpuscular hemoglobin determination [facility] Measurement of renal function [facility] Neutrophil count [facility] Neutrophil percent differential count [facility] Patient Education ED Abdominal P ain Unkn Cause Fem [facility] Work Phone: Platelets [#/volume] in Blood [facility] Potassium measurement [facility] Red blood cell count [facility] Red cell distributio n width determination [facility] Serum chloride measurement [facility] Sodium measurement [facility] Total cholesterol:HD L ratio measurement [facility] Total protein measurement [facility] Triglycerides measurement [facility] Urea nitrogen [Mass/volume] in Serum or Plasma [facility] VLDL cholesterol measurement [facility] Payers Date Payer Category Payer Self-pay [id number] 2022 Private Health Insurance [id number] 2022 Private Health Insurance [id number] 2019 Unknown [id number] Unknown [id number] Unknown [facility] [id number] Unknown [id number] Unknown [id number] Unknown [id number] Social History Date Type Detail Facility Start: 11-26-2021 Tobacco smoking stat [facility] Unknown if ever smoked [facility] Start: 1960 [facility] Start: 03-30-2022 End: 09-24-2024 Tobacco smoking status NHIS Never smoked tobacco [facility] Work Phone: Start: 03-30-2022 Tobacco use and exposure Smokeless tobacco non-user [facility] Work Phone: Start: 03-30-2022 End: 10-26-2022 Alcohol intake Current drinker of alcohol (finding) [facility] Start: 1960 [facility] Start: 03-30-2022 End: 10-26-2022 History of Social function [facility] Start: 03-30-2022 End: 10-26-2022 Tobacco use panel [facility] National Score (1-10 0), lower number is lower risk 46 [facility] Start: 04-01-2022 Gender identity Identifies as female gender (finding) [facility] Start: 04-01-2022 Sexual orientation Heterosexual (juliette pelayo) [facility] Clinical Notes 03-30-2022 to 09-24-2024 Oleg Patel, TECHNOLOGIST - 09/21/2024 7:30 AM EDTPatient Emily Hernandez MD - 09/19/2024 5:31 PM Briana - Coordinator, Mammography - 04/23/2023 10:28 AM EST Note Date & Type Note Facility 09-24-[address] [facility] 09-24-2024 Radiology Diagnostic study note [facility] Imaging Services [address] [place], [place] [address] Abdomen/Pelvis without Cont MR#: [id number] Acct: [id number] Name: JENNY CHAVARRIA Rep #: [id number] : 1960 F 64 From: Caren Unger MD PCP: Dr. Sb Ann MD Status: REG ER Study:Abdomen/Pelvis without Cont Date of Exa m: 09/24/24 Exam# [id number] Ordering Dr: Alphonse Whittaker DO PROCEDURE: ABDOMEN/PELVIS [...] IMPRESSION: No acute abdominopelvic finding. Reading Location: [id number] CC: Dr. Alphonse Lowry, DO; Dr. Sb Ann MD ~ Epic Analyst: Signed [facility] 09-21-2024 History of Present illness Narrative Radiology [...] PATIENT PRESENTS WITH AN IMPLANTABLE OR ATTACHED 3D DESIGNER: No RADIOLOGY DEPARTMENT: Ultrasound PERIPHERAL IV DATA: Not applicable SIGNED BY: TECHNOLOGIST Tutu September 21, 2024 7:47 AM documented in this encounter [facility] 09-21-2024 Note HNO ID: [id number] Author: OLEG PATEL TECHNOLOGIST Service: ? Author [...] PATIENT PRESENTS WITH AN IMPLANTABLE OR ATTACHED 3D DESIGNER: No RADIOLOGY DEPARTMENT: Ultrasound PERIPHERAL IV DATA: Not applicable SIGNED BY: Oleg Patel, TECHNOLOGIST September 21, 2024 7:47 AM [facility] 09-19-2024 Instructions Emily [facility] MD - 09/19/2024 5:42 PM EDT START THE MEDS AND GET THE ULTRASOUND TOMORROW WE WILL NOTIFY OF RESULTS IF ANY WORSE GO TO THE ED documented in this encounter [facility] 09-19-2024 Note HNO ID: [id number] Author: EMILY LIMA MD Service: ? Author [...] suggestive Disposition The patient was discharged. Procedures [facility] 09-19-2024 History of Present illness Narrative [...] was discharged. Procedures documented in this encounter [facility] 04-23-2023 Miscellaneous Notes April 23, 2023 PID: [id number] Jenny Chavarria [address] [place] [address] Dear Ms. Chavarria, We are pleased to [...] report will be kept on file at [facility] as part of your permanent medical record and are available for your continuing care. Thank you for allowing us to help in meeting your health care needs. Sincerely, Dr. Mcbride Interpreting Radiologist [facility] (Normal over 40) documented in this encounter [facility] 04-23-2023 History of Present illness Narrative Radiology [...] PATIENT PRESENTS WITH AN IMPLANTABLE OR ATTACHED 3D DESIGNER: No RADIOLOGY DEPARTMENT: Mammography PERIPHERAL IV DATA: Not applicable SIGNED BY: RT Brenna(R) April 23, 2023 7:05 AM documented in this encounter [facility] 10-26-2022 History of Present illness Narrative Subjective [...] of care. This note was generated using [employer] software. It may contain errors in wording, punctuation, or spelling. Anthony Anderson APRN.TANO documented in this encounter [facility] 04-09-2022 Miscellaneous Notes April 10, 2022 PID: [id number] Jenny Juan Miguel [address] [place] [address] Dear Ms. Chavarria, We are pleased to [...] report will be kept on file at [facility] as part of your permanent medical record and are available for your continuing care. Thank you for allowing us to help in meeting your health care needs. Sincerely, Dr. 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 Comments: Sexual Activity: Yes; Male Contraception: [...] external genitalia normal, normal Bartholin's glands, urethra, [place]'s glands, no vulvar lesions, no cervical lesions, [...] Sarah Jones APRN.CNP documented in this encounter [facility] Discharge summary Note Date/Time September 24, 2024 7:42am [facility] Medical Records Department [address] [place] [address] Emergency Department Summary 09/24/24 MR#: [id number] Acct: [id number] Name: JENNY CHAVARRIA Rep #:[id number] : 1960 64 From: Alphonse faustin DO [...] intact Psych: Cooperative, appropriate mood and affect [facility] Medical History Elevated low density lipoprotein [...] (Auto) 73.7 H Lymph % (Auto) 19.7 [place] % (Auto) 5.6 Eos % (Auto) 0.7 Baso % (Auto) 0.2 Absolute Neuts (auto) 6.0 Absolute Lymphs (auto) 1.62 Nucleated RBC % 0 Urine Color Yellow Urine Clarity Clear Urine pH 6.5 Ur Specific [place] 1.015 Urine Protein 30 H Urine Glucose [...] IMPRESSION: No acute abdominopelvic finding. Reading Location: [facility] Discharge Plan Triage Chief Complaint: Complaint ED Provider: Alphonse Lowry Dx/Rx/DC Orders Prescriptions: No Action acyclovir 5 % ointment 1 applic topical .twice daily 5 Days Qty: 15 2RF escitalopram oxalate 10 mg tablet 10 mg PO DAILY Qty: 90 3RF Primary Care Provider: Sb Ann Referrals: Sb Ann MD [Primary Care Provider] - Print Language: Urdu What to do if you have Problems For any increased pain, shortness of breath, bleeding, nausea or vomiting, chestpain, or any unexpected problems, contact your Primary Care Provider. Call [employer] [facility] ([phone]) or report to the closest Emergency Room. Call 911 if necessary. 09/24/24 0742 <Electronically signed by Alphonse Lowry DO> Cosigner Signature (if applicable): CC: Dr. Sb Ann MD ~ Signed [facility] Work Phone: Evaluation note* Diagnosis Onset Date Resolution Status Encounter for wellness examination in adult acute Skin rash acute [facility] Work Phone: Evaluation note* Diagnosis Encounter for gynecological examination (general) (routine) without abnormal findings- Primary Encounter for screening mammogram for breast cancer [facility] noteNo assessment information [facility]WC[facility] Work Phone: Evaluation note* Diagnosis Acute otitis externa of left ear, unspecified type- Primary documented in this encounter [facility] note* Diagnosis Encounter for screening mammogram for breast cancer documented in this encounter [facility] note* Diagnosis Encounter for screening mammogram for malignant neoplasm of breast Other screening mammogram documented in this encounter [facility] note* Diagnosis Cellulitis of skin- Primary Cellulitis and abscess of unspecified site Rash Rash and other nonspecific skin eruption Pain of left lower extremity [facility]* Diagnosis Rash Rash and other nonspecific skin eruption Pain of left lower extremity documented in this encounter [facility] note* Diagnosis Onset Date Resolution Status Admit Date Cellulitis acute September 27 11:30am Elevated low density lipopro tein (LDL) cholesterol level acute September 11:30am Encounter for wellness examination in adult acute September 27, 2024 11:30am [facility] Work Phone: Hospital Discharge instructionsAdditional Instructions Follow-up with your primary care physician. Return back to the ED if symptoms change or worsen. You did have blood in your urine, you need to follow-up with your primary care physician.[facility] Work Phone: Reason for referral (narrative)* Diagnostic Procedure Only (Routine) - Pending Review Specialty Diagnoses / Procedures Referred By Contac t Referred To Contact [facility] Diagnoses Encounter for screening mammogram for breast cancer Procedures AFSHAN SCREENING SCREENING MAMMOGRAPHY BI 2-VIEW BREAST INC CAD Sarah Jones WADE.CREATIVE PROJECT MANAGER [address] [place] [address] [facility] [address] [place] [address] Referral ID Status Reason Start Date Expiration Date Visits Requested Visits Authorized [id number] Pending Review Auto-Generat ed Referral 03/30/2022 04/29/2023 1 1 [facility] for referral (narrative)* Diagnostic Procedure Only (Routine) - Closed Specialty Diagnoses / Procedures Referred By Contac t Referred To Contact [facility] Diagnoses Encounter for screening mammogram for breast cancer Procedures AFSHAN SCREENING SCREENING MAMMOGRAPHY BI 2-VIEW BREAST INC [facility], WADE.CREATIVE PROJECT MANAGER [address] [place] [address] [facility] [address] [place] [address] Referral ID Status Reason Start Date Expiration Date V isits Requested Visits Authorized [id number] Closed Auto-Generate d Referral 03/30/2022 04/29/2023 1 1 [facility] for referral (narrative)* Diagnostic Procedure Only (Routine) - Closed Specialty Diagnoses / Procedures Referred By Contac t Referred To Contact [facility] Diagnoses Encounter for screening mammogram for malignant neoplasm of breast Procedures AFSHAN SCREENING SCREENING MAMMOGRAPHY BI 2-VIEW BREAST INC CAD Ana Meza MD [address] [place] [address] [facility] [address] [place] [address] Referral ID Status Reason Start Date Expiration Date V isits Requested Visits Authorized [id number] Closed Auto-Generate d Referral 03/26/2022 04/24/2023 1 1 [facility] for referral (narrative)No reason for referral information availableWCleveland Clinic [facility] Work Phone: Reason for visit Narrative* Diagnostic Procedure Only (Routine) - Closed Specialty Diagnoses / Procedures Referred By Contac t Referred To Contact [facility] Diagnoses Encounter for screening mammogram for breast cancer Procedures AFSHAN SCREENING SCREENING MAMMOGRAPHY BI 2-VIEW BREAST INC CAD Karen SarahWADE.CREATIVE PROJECT MANAGER [address] [place] [address] [facility] [address] [place] [id number] Referral ID Status Reason Start Date Expiration Date V isits Requested Visits Authorized [id number] Closed Auto-Generate d Referral 03/30/2022 04/29/2023 1 1 [facility] for visit Narrative* Diagnostic Procedure Only (Routine) - Closed Specialty Diagnoses / Procedures Referred By Lester t Referred To Contact [facility] Diagnoses Encounter for screening mammogram for malignant neoplasm of breast Procedures AFSHAN SCREENING SCREENING MAMMOGRAPHY BI 2-VIEW BREAST INC CAD Ana Meza MD [address] [place] [address] [facility] [address] [place] [address] Referral ID Status Reason Start Date Expiration Date V isits Requested Visits Authorized [id number] Closed Auto-Generate d Referral 03/26/2022 04/24/2023 1 1 [facility] for visit Narrative* Diagnostic Procedure Only (Urgent) - Closed Specialty Diagnoses / Procedures Referred By Contac t Referred To Contact [facility] Diagnoses Rash Pain of left lower extremity Procedures US DVT LOWER LEFT DUP-SCAN XTR VEINS UNILATERAL/[place] [address] [place] [address] Phone: tel: fax: [place] [address] Referral ID Status Reason Start Date Expiration Date V isits Requested Visits Authorized [id number] Closed Auto-Generate d Referral 09/20/2024 10/19/2025 1 1 [facility] Chief Complaint and Reason for Visit Chief Complaint 6-8M F/U Unilateral primary osteoarthritis, left knee Reason for Visit [facility] Skin rash Chief Complaint [...] Do you have a Healthcare Power of Medical Office Manager? No September 24, 2024 5:31am Additional Source [...] or prosecute any alcohol or drug abuse patient.[facility] HospitalIn the event this information is protected by the Federal Confidentiality of Alcohol and Drug Abuse Patient Records regulations: The Federal rules restrict any use of the information to criminally investigate or prosecute any alcohol or drug abuse patient.[facility] HospitalIn the event this information is protected by the Federal Confidentiality of Alcohol and Drug Abuse Patient Records regulations: The Federal rules restrict any use of the information to criminally investigate or prosecute any alcohol or drug abuse patient.[facility] HospitalIn the event this information is protected by the Federal Confidentiality of Alcohol and Drug Abuse Patient Records regulations: The Federal rules restrict any use of the information to criminally investigate or prosecute any alcohol or drug abuse patient.[facility] HospitalIn the event this information is protected by the Federal Confidentiality of Alcohol and Drug Abuse Patient Records regulations: The Federal rules restrict any use of the information to criminally investigate or prosecute any alcohol or drug abuse patient.[facility] HospitalIn the event this information is protected by the Federal Confidentiality of Alcohol and Drug Abuse Patient Records regulations: The Federal rules restrict any use of the information to criminally investigate or prosecute any alcohol or drug abuse patient.[facility] HospitalIn the event this information is protected by the Federal Confidentiality of Alcohol and Drug Abuse Patient Records regulations: The Federal rules restrict any use of the information to criminally investigate or prosecute any alcohol or drug abuse patient.[facility] HospitalIn the event this information is protected by the Federal Confidentiality of Alcohol and Drug Abuse Patient Records regulations: The Federal rules restrict any use of the information to criminally investigate or prosecute any alcohol or drug abuse patient.[facility] Reason for Visit (unrecogniz ed section and [...] Active Justin PALMER PA-C Attending Provider Active Special Needs Librarian Relationship Specialty Start Date End Date Sb Ann MD [address] [facility] [address] [place] [address] PCP - General Internal Medicine 10/26/22 Special Needs Librarian Relationship Specialty Start Date End Date Sb Ann MD [address] [facility] [address] [place] [address] PCP - General Internal Medicine 10/26/22 Special Needs Librarian Relationship Specialty Start Date End Date Sb Ann MD [address] [facility] [address] [place] [address] PCP - General Internal Medicine 10/26/22 Special Needs Librarian Relationship Specialty Start Date End Date Sb Ann MD [address] [facility] [address] [place] [address] PCP - General Internal Medicine 10/26/22 Special Needs Librarian Relationship Specialty Start Date End Date Sb Ann MD [address] [facility] [address] [place] [address] PCP - General Internal Medicine 10/26/22 Team [...] section and content) DATE CREATED AUTHOR 09/24/2024 [facility] DATE CREATED AUTHOR AUTHOR'S ORGANIZ ATION 09/25/2024 [facility] DATE CREATED AUTHOR AUTHOR'S ORGANIZ ATION 09/27/2024 [facility] FOR RECORDS PERTAINING TO PATIENTS WHO [...] BE BASED ON THE PRIMARY CLINICAL RECORDS. [employer] provides no warranty or guarantee of the accuracy or completeness of information in this document.
== END | disposition home or self-care (01) ==
LOC: LAB 12:34
PROVIDERS: PCP Internal Medicine; Referring Provider Internal Medicine; Visit Provider Internal Medicine
DX: Z00.00 Encounter for general adult medical examination without abnormal findings (principal); L03.90 Cellulitis, unspecified; E78.00 Pure hypercholesterolemia, unspecified
CPT/HCPCS: 36415; 80053; 80061; 82550; 84443; 85025; 85652; 86140

== ENCOUNTER → 2024-09-28 | Outpatient (CLI) | payer OTHER, SELFPAY ==
[2024-09-28 14:14] LABS: D-Dimer Quantitative (DVT/PE) 0.30 FEU/ug/m (0.27-0.49)
== END | disposition home or self-care (01) ==
LOC: LAB 13:47
PROVIDERS: PCP Internal Medicine; Referring Provider Internal Medicine; Visit Provider Internal Medicine
DX: L03.90 Cellulitis, unspecified (principal); M79.89 Other specified soft tissue disorders
CPT/HCPCS: 36415; 85379